=== PATIENT | female | born 1940 | race Caucasian/White ===

== ENCOUNTER 2017-06-29 12:06 | Outpatient (CLI) | payer OTHER ==
[2014-09-30 14:50] VITALS: BMI 23.0
[2017-06-29 13:06] LABS: BASOPHILS % (AUTO) 0.5 % (0.0-3.0); EOSINOPHILS # (AUTO) 0.4 K/ul (0.0-0.7); EOSINOPHILS % (AUTO) 4.8 % (0.0-7.0); HEMATOCRIT 30.2 % (37.0-47.0); HEMOGLOBIN 10.6 g/dl (12.0-16.0); IMMATURE GRANULOCYTE % (AUTO) 0.1 % (0.0-5.0); LYMPHOCYTES # (AUTO) 2.1 K/uL (0.60-3.4); MEAN CORPUSCULAR HEMOGLOBIN 31.5 pg (27.0-31.0); MEAN CORPUSCULAR HGB CONC 35.1 (31.8-35.4); MEAN CORPUSCULAR VOLUME 89.9 fl (81.0-99.0); MONOCYTES # (AUTO) 0.6 K/uL (0.4-2.0); MONOCYTES % (AUTO) 7.6 (0-10); NEUTROPHILS # (AUTO) 4.3 K/ul (2.0-6.9); PLATELET COUNT 307 10^3/uL (140-440); RED BLOOD COUNT 3.36 10^6/ul (4.20-5.40); WHITE BLOOD COUNT 7.34 K/ul (4.6-10.2)
[2017-06-29 13:43] LABS: ALBUMIN 3.5 g/dL (3.4-5.0); ALBUMIN/GLOBULIN RATIO 1.17; ANION GAP 11.6; BILIRUBIN,TOTAL 0.37 mg/dL (0.00-1.20); BUN/CREATININE RATIO 11.68; CALCIUM 9.3 mg/dL (8.2-10.2); CHOL/HDL RATIO 2.9 (4.5-5.5); CREATININE 0.77 mg/dL (0.60-1.30); POTASSIUM 3.6 mmol/L (3.5-5.10); TOTAL PROTEIN 6.5 g/dL (5.8-8.1)
== END 2017-06-29 12:07 | disposition home or self-care (01) ==
LOC: LAB 12:06
PROVIDERS: ATTEND Internal Medicine
DX: E78.5 Hyperlipidemia, unspecified (principal); I10 Essential (primary) hypertension; R73.9 Hyperglycemia, unspecified; I73.9 Peripheral vascular disease, unspecified; E53.8 Deficiency of other specified B group vitamins; J44.9 Chronic obstructive pulmonary disease, unspecified
CPT/HCPCS: 36415; 80053; 80061; 82607; 83036; 84443; 85025

== ENCOUNTER 2017-07-06 08:52 | Outpatient (CLI) ==
[2014-09-30 14:50] VITALS: BMI 23.0
--- NOTE | 2017-07-06 12:10 | MAMMO ---
EXAM: Digital screening mammogram with post Mrs. HISTORY: Screening COMPARISON: 03/30/2016 FINDINGS: Digital MLO and CC views of the right and left breast were performed. Computer aided det ection was utilized. Tomosynthesis was performed. There are scattered fibroglandular densities. Be nign bilateral calcifications. There is no evidence for mass, asymmetry, distortion, or suspicious c alcifications in either breast. IMPRESSION: 1. No evidence of malignancy in the right or left breast. 2. Annual screening mammogram is recommended in one year. BIRADS category 2, benign
== END 2017-07-06 08:53 | disposition home or self-care (01) ==
LOC: RAD 08:52
PROVIDERS: ATTEND Internal Medicine
DX: Z12.31 Encounter for screening mammogram for malignant neoplasm of breast (principal)
CPT/HCPCS: 77067

== ENCOUNTER 2017-07-08 11:01 | Outpatient (CLI) | payer OTHER ==
[2014-09-30 14:50] VITALS: BMI 23.0
[2017-07-08 11:35] LABS: BASOPHILS % (AUTO) 0.5 % (0.0-3.0); EOSINOPHILS # (AUTO) 0.3 K/ul (0.0-0.7); EOSINOPHILS % (AUTO) 3.7 % (0.0-7.0); HEMATOCRIT 29.9 % (37.0-47.0); HEMOGLOBIN 10.3 g/dl (12.0-16.0); IMMATURE GRANULOCYTE % (AUTO) 0.3 % (0.0-5.0); LYMPHOCYTES # (AUTO) 2.5 K/uL (0.60-3.4); LYMPHOCYTES % (AUTO) 32.2 (10.0-50.0); MEAN CORPUSCULAR HEMOGLOBIN 30.8 pg (27.0-31.0); MEAN CORPUSCULAR HGB CONC 34.4 (31.8-35.4); MEAN CORPUSCULAR VOLUME 89.5 fl (81.0-99.0); MONOCYTES # (AUTO) 0.6 K/uL (0.4-2.0); MONOCYTES % (AUTO) 7.8 (0-10); NEUTROPHILS # (AUTO) 4.3 K/ul (2.0-6.9); NEUTROPHILS % (AUTO) 55.5; PLATELET COUNT 283 10^3/uL (140-440); RED BLOOD COUNT 3.34 10^6/ul (4.20-5.40); WHITE BLOOD COUNT 7.67 K/ul (4.6-10.2)
== END 2017-07-08 11:02 | disposition home or self-care (01) ==
LOC: LAB 11:01
PROVIDERS: ATTEND Internal Medicine
DX: D64.9 Anemia, unspecified (principal)
CPT/HCPCS: 36415; 85025

== ENCOUNTER 2017-10-25 10:58 | Outpatient (CLI) ==
[2014-09-30 14:50] VITALS: BMI 23.0
== END 2017-10-25 10:59 | disposition home or self-care (01) ==
LOC: LAB 10:58
PROVIDERS: ATTEND Internal Medicine
DX: E78.5 Hyperlipidemia, unspecified (principal); D64.9 Anemia, unspecified; I10 Essential (primary) hypertension; Z79.899 Other long term (current) drug therapy
CPT/HCPCS: 36415; 80053; 80061; 82607; 82728; 82746; 83036; 83540; 83550; 84443; 84466; 85025; 85045

== ENCOUNTER 2018-06-16 19:04 | Inpatient (IN) | payer OTHER ==
[2018-06-16] MEDS ORDERED: SODIUM CHLORIDE 1,000 ML IV STA (19:06)
--- NOTE | 2018-06-16 20:46 | CT ---
EXAM: CT ABDOMEN AND PELVIS HISTORY: Lower quadrant abdominal pain, vomiting and diarrhea TECHNIQUE: CT abdomen and pelvis without intravenous contrast. Images were reconstructed using 3 mm section thickness. Reformations were prepared. COMPARISON: 09/23/2010 FINDINGS: Diagnostic limitations exist without including contrast enhanced images. Liver and spleen appear cordell ssly normal. Gallbladder is mildly distended, nonspecific. Pancreas and adrenal glands are within n ormal limits. Kidneys and ureters appear grossly normal. Moderate atherosclerotic disease. Tiny sliding hiatal hernia. The appendix is identified and is within normal limits. Diffuse wall th ickening of the colon with subtle paracolic inflammatory fat stranding. Small bowel grossly within n ormal limits. No bowel obstruction. Uterus is unremarkable. Urinary bladder is decompressed, grossly unremarkable. Scant pelvic ascites. No well-defined abscess is seen. No ventral abdominal wall hernia. Previous postop changes of the midline abdominal wall. The bones reveal severe degenerative disc and facet disease especially at the lumbosacral junction where there is anterior listhesis of L4 on L5 by about 4.4 mm and of L5 on S1 by about 3 mm. Bones appear demine ralized. Lung bases are free of acute infiltrate. No pneumoperitoneum. IMPRESSION: 1. Acute active finney colitis without obstruction or abscess. No free air. 2. Moderate atherosclerotic disease. 3. Tiny sliding hiatal hernia.
--- NOTE | 2018-06-16 20:54 | ED.PDOC ---
General ED Provider: Dr. YASMINE ALEXIS-ER Chief Complaint: Abdominal Pain Stated Complaint: im cramping and having lots of stools Time Seen by Physician: 19:40 Mode of Arrival: Ambulance Information Source: Patient, EMT Exam Limitations: No limitations Primary Care Provider: NAPOLEON CAI Nursing and Triage Documentation Reviewed and Agree: Yes Does patient meet sepsis criteria?: No System Inflammatory Response Syndrome: Not Applicable Sepsis Protocol: For patient's 13 years and over: Temp is 96.8 and below OR 101 and greater Pulse >90 BPM Resp >20/minute Acutely Altered Mental Status Are patient's symptoms suggestive of a new infection, such as: -Pneumonia -Skin, Soft Tissue -Endocarditis -UTI -Bone, Joint Infection -Implantable Device -Acute Abdominal Infection -Wound Infection -Meningitis -Blood Stream Catheter Infection -Unknown GI Complaint Exam - Vomiting/Diarrhea Complaint/Exam Onset/Duration: today Symptoms Are: Still present Episodes of Diarrhea Over Last 24 Hours: 9 Initial Severity: Mild Current Severity: Moderate Character of Diarrhea: Reports: Watery, Malodorous Aggravating: Reports: None Alleviating: Reports: None Associated Signs and Symptoms: Reports: Abdominal pain, Cramping Kussmaul Respirations Present: No Differential Diagnoses: Other Review of Systems - Review Of Systems Constitutional: Reports: No symptoms Eyes: Reports: No symptoms Ears, Nose, Mouth, Throat: Reports: No symptoms Respiratory: Reports: No symptoms Cardiac: Reports: No symptoms GI: Reports: Diarrhea, Nausea : Reports: No symptoms Musculoskeletal: Reports: No symptoms Skin: Reports: No symptoms Neurological: Reports: No symptoms Endocrine: Reports: No symptoms Hematologic/Lymphatic: Reports: No symptoms All Other Systems: Reviewed and Negative Past Medical History - Past Medical History Previously Healthy: No Endocrine: Reports: Unknown Cardiovascular: Reports: Unknown Respiratory: Reports: Other Hematological: Reports: Unknown Gastrointestinal: Reports: Other Genitourinary: Reports: Unknown Neuro/Psych: Reports: Unknown Musculoskeletal: Reports: Unknown Cancer: Reports: Unknown Last Menstrual Period: none - Surgical History General Surgical History: Reports: Unknown - Family History Family History: Reports: Unknown - Social History Smoking Status: Former smoker Hx Substance Use: No Alcohol Screening: None - Immunizations Tetanus Shot up to Date: Yes Physical Exam - Physical Exam Appearance: Well-appearing, No pain distress, Well-nourished Eyes: DENTON, EOMI, Conjunctiva clear ENT: Ears normal, Nose normal, Oropharynx normal Respiratory: Airway patent, Breath sounds clear, Breath sounds equal, Respirations nonlabored Cardiovascular: RRR, Pulses normal, No rub, No murmur GI/: Soft, Nontender, No masses, Bowel sounds normal, No Organomegaly Musculoskeletal: Normal strength, ROM intact, No edema, No calf tenderness Skin: Warm, Dry, Normal color Neurological: Sensation intact, Motor intact, Reflexes intact, Cranial nerves intact, Alert, Oriented Psychiatric: Affect appropriate, Mood appropriate Interpretation - Radiology Interpretation Radiology Interpretation By: Radiologist Radiology Results: Positive Exam Interpreted: CT Scan - EKG Interpretation Time of EKG #1: 20:54 Rate: Normal Rhythm: Sinus Ectopy: None [place]: NL ST Segment: Normal Interpretation: nsr Physician Notification - Case Discussed Physician Notified: dr cai Time of Notification: 20:54 Critical Care Note - Critical Care Note Total Time (mins): 0 Course - Course Hematology/Chemistry: 06/16/18 19:43 06/16/18 19:43 Orders, Labs, Meds: Lab Review 06/16/18 06/16/18 06/16/18 19:43 19:43 19:43 WBC 23.21 H RBC 4.20 Hgb 12.9 Hct 37.5 MCV 89.3 MCH 30.7 MCHC 34.4 RDW Coeff of Hemant 12.8 Plt Count 347 Immature Gran % (Auto) 0.5 Neut % (Auto) 81.0 Lymph % (Auto) 12.7 [place] % (Auto) 3.8 Eos % (Auto) 1.5 Baso % (Auto) 0.5 Immature Gran # (Auto) 0.1 Neut # (Auto) 18.8 H Lymph # (Auto) 3.0 [place] # (Auto) 0.9 Eos # (Auto) 0.3 Baso # (Auto) 0.1 ESR 7 Sodium 135.0 L Potassium 3.34 L Chloride 105.4 Carbon Dioxide 18.2 L Anion Gap 14.74 BUN 13.5 Creatinine 0.94 Estimated GFR (MDRD) 58.00 BUN/Creatinine Ratio 14.36 Glucose 183.8 H Lactic Acid 2.08 Calcium 9.09 Total Bilirubin 0.54 AST 27.9 ALT 15.7 Alkaline Phosphatase 107.2 Total Creatine Kinase 71.9 Troponin I < 0.012 Total Protein 6.56 Albumin 3.83 Globulin 2.73 Albumin/Globulin Ratio 1.40 Amylase 214.8 H Lipase 90.8 Procalcitonin 06/16/18 19:43 WBC RBC Hgb Hct MCV MCH MCHC RDW Coeff of Hemant Plt Count Immature Gran % (Auto) Neut % (Auto) Lymph % (Auto) [place] % (Auto) Eos % (Auto) Baso % (Auto) Immature Gran # (Auto) Neut # (Auto) Lymph # (Auto) [place] # (Auto) Eos # (Auto) Baso # (Auto) ESR Sodium Potassium Chloride Carbon Dioxide Anion Gap BUN Creatinine Estimated GFR (MDRD) BUN/Creatinine Ratio Glucose Lactic Acid Calcium Total Bilirubin AST ALT Alkaline Phosphatase Total Creatine Kinase Troponin I Total Protein Albumin Globulin Albumin/Globulin Ratio Amylase Lipase Procalcitonin 0.13 Orders Category Date Time Status EKG-(ED ONLY) Stat CARDIO 06/16/18 19:05 Completed C-DIFF MONITORING (NURSING) BID CARE 06/16/18 19:09 Active C-DIFF MONITORING (NURSING) BID CARE 06/16/18 19:11 Active IV [ED IV/MEDIPORT/POWERPORT] .ONCE EMERGENCY 06/16/18 19:06 Active IV [ED IV/MEDIPORT/POWERPORT] .ONCE EMERGENCY 06/16/18 19:06 Active AMYLASE Stat LAB 06/16/18 19:43 Completed BLOOD CULTURE (ED ONLY) Stat LAB 06/16/18 19:43 Received C. DIFFICILE Routine LAB 06/16/18 19:20 Received CBC W/ AUTO DIFF Stat LAB 06/16/18 19:43 Completed COMPREHENSIVE METABOLIC PANEL Stat LAB 06/16/18 19:43 Completed CREATINE KINASE Stat LAB 06/16/18 19:43 Completed ESR Stat LAB 06/16/18 19:43 Completed LACTIC ACID Stat LAB 06/16/18 19:43 Completed LIPASE Stat LAB 06/16/18 19:43 Completed MISCELLANEOUS SEND OUT Stat LAB 06/16/18 19:20 Received PROCALCITONIN Stat LAB 06/16/18 19:43 Completed STOOL CULTURE Stat LAB 06/16/18 19:20 Results TROPONIN I Stat LAB 06/16/18 19:43 Completed URINALYSIS C & S IF INDICATED Stat LAB 06/16/18 19:05 Uncollected 0.9 % Sodium Chloride [Saline Flush] MEDS 06/16/18 19:06 Ordered 1 syr IVF PRN PRN Sodium Chloride 0.9% [Sodium Chloride] 1,000 ml MEDS 06/16/18 19:[address] ABDOMEN/PELVIS WO CONTRAST Stat RADS 06/16/18 19:07 Completed Medications Generic Name Dose Route Start Last Admin Trade Name Freq PRN Reason Stop Dose Admin Sodium Chloride 1 syr 06/16/18 19:06 Saline Flush IVF PRN PRN To flush IV Discontinued Medications Generic Name Dose Route Start Last Admin Trade Name Freq PRN Reason Stop Dose Admin Sodium Chloride 1,000 mls @ 1,000 mls/hr 06/16/18 19:06 06/16/18 19:35 Sodium Chloride IV 06/16/18 20:05 1,000 mls/hr BOLUS STA Administration Vital Signs: Temp Pulse Resp BP Pulse Ox 06/16/18 19:35 97.8 F 79 18 90/50 L 100 Departure - Departure Time of Disposition: 20:54 Disposition: HOME SELF-CARE Discharge Problem: Abdominal pain, Colitis Condition: Stable Pt referred to PMD for follow-up: Yes IPMP verified?: No Allergies/Adverse Reactions: Allergies cephalexin monohydrate [From Keflex] Adverse Reaction (Verified 09/18/14 12:25) latex Adverse Reaction (Verified 09/18/14 12:25) meperidine HCl [From Demerol] Adverse Reaction (Verified 09/18/14 12:25) Sulfa (Sulfonamide Antibiotics) Adverse Reaction (Verified 09/18/14 12:25) Home Medications: Ambulatory Orders Aspirin [Aspirin Chewable] 81 mg PO DAILY 09/18/14 Bisoprolol Fumarate [Zebeta] 5 mg PO DAILY 09/18/14 Esomeprazole Magnesium [Nexium] 40 mg PO DAILY 09/18/14 Pravastatin Sodium [Pravachol] 40 mg PO DAILY 09/18/14 Cyclobenzaprine HCl [Flexeril] 10 mg PO DAILY #1 tablet 10/05/14 Hydrocodone/Acetaminophen [[place] 7.5-325 Tablet] 1 each PO TID PRN #1 tablet 07/10 Lorazepam [Ativan] 0.5 mg PO BEDTIME #1 tablet 10/05/14 Budesonide/Formoterol Fumarate [Symbicort 160-4.5 Mcg Inhaler] 1 puff IH BID 03/10 Amlodipine Besylate/Benazepril [Lotrel 5-40 mg Capsule] 1 each PO DAILY Bisoprolol Fumarate [Zebeta] 5 mg PO DAILY 06/16/18 Disposition Discussed With: Patient, Family
[2018-06-16] MEDS ORDERED: NORCO 7.5-325 PO PRN (20:59)
[2018-06-16] MEDS ORDERED: FLAGYL 500 MG/100 ML 500 MG in PREMIX 100 ML NS 1 BAG IV SCH (21:00)
[2018-06-16] MEDS ORDERED: SYMBICORT 160-4.5 MCG INHALER IH SCH (21:00)
[2018-06-16] MEDS ORDERED: SYMBICORT 160-4.5 MCG INHALER IH PRN (22:14)
[2018-06-16] MEDS ORDERED: FLAGYL 500 MG/100 ML 100 ML IV ONE (22:17)
[2018-06-16] MEDS: D5%-NS-KCL 20 MEQ/L IV SOL 1,000 ML IV SCH (22:20)
[2018-06-16] MEDS: VANCOCIN PO SCH ×2 (22:21→23:32)
[2018-06-16] MEDS: FLEXERIL PO SCH (22:21)
[2018-06-16] MEDS: ATIVAN PO SCH (22:21)
[2018-06-17] MEDS: VANCOCIN PO SCH ×4 (05:22→23:39)
[2018-06-17] MEDS: NORCO 7.5-325 PO PRN ×2 (06:42→11:08)
[2018-06-17] MEDS: PROTONIX PO SCH (08:26)
[2018-06-17] MEDS: FLAGYL 500 MG/100 ML 500 MG in PREMIX 100 ML NS 1 BAG IV SCH ×3 (08:26→21:12)
[2018-06-17] MEDS ORDERED: NON-FORMULARY MEDICATION (Esomeprazole Magnesium [Nexium] 40 MG) PO SCH (09:00)
[2018-06-17] MEDS ORDERED: FLEXERIL PO SCH (09:00)
[2018-06-17] MEDS: D5%-NS-KCL 20 MEQ/L IV SOL 1,000 ML IV SCH ×2 (09:38→13:28)
[2018-06-17] MEDS ORDERED: [UNRECOGNIZED DRUG - REMARK] INH PRN (11:57)
[2018-06-17] MEDS ORDERED: FLONASE NAS ONE (12:14)
[2018-06-17] MEDS: ZOFRAN 4 MG/2 ML IVP PRN ×2 (12:57→21:13)
[2018-06-17] MEDS: DECADRON 4 MG/ML SDV IM SCH (13:25)
[2018-06-17] MEDS: TYLENOL PO PRN (15:19)
[2018-06-17] MEDS: NORCO 7.5-325 PO SCH ×2 (16:36→21:14)
[2018-06-17] MEDS: FLEXERIL PO SCH (21:15)
[2018-06-17] MEDS: ATIVAN PO SCH (21:15)
[2018-06-18] MEDS: D5%-NS-KCL 20 MEQ/L IV SOL 1,000 ML IV SCH ×3 (01:41→16:06)
[2018-06-18] MEDS: ZOFRAN 4 MG/2 ML IVP PRN ×2 (04:17→15:02)
[2018-06-18] MEDS: FLAGYL 500 MG/100 ML 500 MG in PREMIX 100 ML NS 1 BAG IV SCH ×3 (04:18→21:06)
[2018-06-18] MEDS: VANCOCIN PO SCH ×4 (05:46→23:54)
[2018-06-18] MEDS: PROTONIX PO SCH (05:46)
[2018-06-18] MEDS ORDERED: FLONASE NAS PRN (07:12)
[2018-06-18] MEDS: DECADRON 4 MG/ML SDV IM SCH (08:12)
[2018-06-18] MEDS: NORCO 7.5-325 PO SCH ×4 (08:12→21:06)
--- NOTE | 2018-06-18 12:59 | HP ---
DATE OF SERVICE: 06/16/18 REASON FOR HOSPITALIZATION: Bloody diarrhea with abdominal cramping. HISTORY OF PRESENT ILLNESS: 78-year-old white female who started having bloody diarrhea. At the time when she entered the ambulance, prior to that at least two to three hours she was having abdominal cramping and that is why the ambulance was called. The ER physician called me with the patient's history of having bloody diarrhea with cramping. CT scan of the abdomen showed pancolitis. According to the emergency room physician, the patient's stools were really foul-smelling and to him they smelled like C. diff. The patient doesn't give any history of having any contact with anyone with C. diff or eaten anything that could have started it. The onset was sudden, a few hours prior to coming to the emergency room. There were no fever, no chills. She felt extremely weak and tired. PAST MEDICAL/SURGICAL HISTORY: History of hypertension Dyslipidemia Severe DJD of the spine Anxiety disorder Chronic lung disease Hypertension REVIEW OF SYSTEMS: CONSTITUTIONAL: Fatigue and weakness. No night sweats. No malaise, lethargy. No fever or chills. HEENT: Eyes: No visual changes. No eye pain. No eye discharge. ENT: No runny nose. No epistaxis. No sinus pain. No sore throat. No odynophagia. No ear pain. No congestion. RESPIRATORY: No cough, no congestion. No hemoptysis. No shortness of breath. CARDIOVASCULAR: No angina symptoms. No CHF symptoms. No atypical chest pain for CAD. No palpitations. No PND. No orthopnea. GASTROINTESTINAL: Abdominal cramping a few hours prior to coming to the emergency room. The patient started having diarrhea in the ambulance. Having more bloody diarrhea in ER. No nausea or vomiting. No hematemesis. No hematochezia. GENITOURINARY: No urgency. No frequency. No dysuria. No hematuria. No obstructive symptoms. No discharge. No pain. No significant abnormal bleeding. MUSCULOSKELETAL: No musculoskeletal pain. No joint swelling. No arthritis. NEUROLOGICAL: No headache. No neck pain. No syncope. No seizures. No dizziness. PSYCHIATRIC: Not anxious. No depression. No suicidal thoughts. No homicidal thoughts. SKIN: No rash. No lesions. No wounds. ENDOCRINE: No unexplained weight loss. No weight gain. HEMATOLOGIC/LYMPHATIC: No anemia. No purpura. No petechiae. No prolonged or excessive bleeding. No palpable lymph nodes. PERSONAL/FAMILY/SOCIAL HISTORY: The patient is , lives with the . Nonsmoker. No alcohol abuse. She does all activity of daily living. She is oriented to time, place and person. MEDICATIONS: Aspirin Bisoprolol 5 mg daily Nexium 40 daily Pravastatin 40 daily Flexeril 10 mg p.o. daily Hydrocodone 7.5 mg t.i.d. Lorazepam 0.5 mg at bedtime Symbicort 164.5 daily Lotrel 5-40 mg daily Zebeta 5 mg p.o. daily ALLERGIES: CEPHALEXIN, LATEX, MEPERIDINE, SULFA PHYSICAL EXAMINATION: GENERAL: The patient is oriented to time, place and person. VITAL SIGNS: Temperature 99.2, pulse 80, respiratory rate 16, BP 130/70, pulse ox 98% on room air. HEENT: Mucous membranes dry. Head normocephalic, atraumatic. Eyes: Extraocular muscles are intact. Pupils are equal, round and reactive to light and accommodation. Ears: No lesions. Nose appeared normal. Throat: No exudate or erythema. NECK: Supple. No JVD, no carotid bruit. No lymphadenopathy or thyromegaly. LUNGS: Decreased breath sounds but clear to auscultation. Percussion note normal. Chest symmetrical. HEART: S1, S2, no S3. No murmurs. No cyanosis or clubbing. No ascites. Pulses: Dorsalis pedis and posterior tibial pulses +1 bilaterally. ABDOMEN: Mildly distended. Mildly tender upper quadrants. Bowel sounds hyperactive. No CVA tenderness. No mass felt. EXTREMITIES: No pedal edema. Full range of motion of all extremities, equal. DATA WAREHOUSE ARCHITECT: Mental status - reflexes normal. NEUROLOGIC: No focal deficit. Cranial nerves II through XII are grossly intact. No headache, no double vision or headache. SKIN: Dry. Intact. Turgor - normal. LYMPHATIC: No palpable lymph nodes/no lymphedema. MUSCULOSKELETAL: Normal joints with no swelling. Muscle tone is normal. WBC count 22,000, electrolytes normal. CT scan of the abdomen showed pancolitis. ASSESSMENT: 1. ACUTE ONSET OF BLOODY DIARRHEA WITH ABDOMINAL CRAMPLING LIKELY COLITIS WITH FOUL SMELLING STOOL WITH HIGH WBC COUNT LIKELY POSSIBILITY C. DIFF. 2. HYPERTENSION 3. DYSLIPIDEMIA 4. GENERALIZED DJD 5. HYPOKALEMIA PLAN: 1. Will give Flagyl, Zofran, Vancomycin p.o., IV fluids. 2. Watch for fluid overload. 3. Telemetry. 4. Stool for C. diff. 5. Continue the rest of the medications. CONDITION: Stable. TIME SPENT: More than 70 minutes. MTDD
[2018-06-18] MEDS: ENTOCORT EC PO SCH ×2 (15:02→21:06)
[2018-06-18] MEDS: ATIVAN PO SCH (21:06)
[2018-06-18] MEDS: FLEXERIL PO SCH (21:06)
[2018-06-19] MEDS: FLAGYL 500 MG/100 ML 500 MG in PREMIX 100 ML NS 1 BAG IV SCH ×3 (04:20→20:09)
[2018-06-19] MEDS: VANCOCIN PO SCH ×3 (05:35→17:20)
[2018-06-19] MEDS: PROTONIX PO SCH (05:35)
[2018-06-19] MEDS: D5%-NS-KCL 20 MEQ/L IV SOL 1,000 ML IV SCH (06:28)
--- NOTE | 2018-06-19 06:50 | PN ---
DATE OF SERVICE: 06/17/18 SUBJECTIVE: The patient is doing a little better. She says she has less cramping, less abdominal pain, bloody diarrhea still present with cramping but in between there is no oozing. She feels better. She feels like eating ice cream, sherbert. She is oriented to time, place and person. REVIEW OF SYSTEMS: CONSTITUTIONAL: No night sweats. No fatigue, malaise, lethargy. No fever or chills. HEENT: Eyes: No visual changes. No eye pain. No eye discharge. ENT: No runny nose. No epistaxis. No sinus pain. No sore throat. No odynophagia. No congestion. RESPIRATORY: No cough, no congestion. No hemoptysis. No shortness of breath. CARDIOVASCULAR: No angina symptoms. No CHF symptoms. No atypical chest pain for CAD. No palpitations. No orthopnea. GASTROINTESTINAL: Abdominal cramping with bloody diarrhea, less frequent with less intensity. No nausea or vomiting. No constipation. No hematemesis. No hematochezia. GENITOURINARY: No urgency. No frequency. No dysuria. No hematuria. No obstructive symptoms. No discharge. No pain. No significant abnormal bleeding. MUSCULOSKELETAL: No musculoskeletal pain; no joint swelling. NEUROLOGICAL: No headache. No neck pain. No syncope. No seizures. No dizziness. PSYCHIATRIC: Not anxious. No depression. No suicidal thoughts. No homicidal thoughts. SKIN: No rash. No lesions. No wounds. ENDOCRINE: No unexplained weight loss. No weight gain. HEMATOLOGIC/LYMPHATIC: No anemia. No purpura. No petechiae. No prolonged or excessive bleeding. No palpable lymph nodes. PHYSICAL EXAMINATION: GENERAL: The patient is oriented to time, place and person. VITAL SIGNS: Temperature 98.2, pulse 70, respiratory rate 15, BP 130/80. HEENT: Head normocephalic, atraumatic. Eyes: Extraocular muscles are intact. Pupils are equal, round and reactive to light and accommodation. Ears: No lesions. Nose appeared normal. Throat: No exudate or erythema. NECK: Supple. No JVD, no carotid bruit. No lymphadenopathy or thyromegaly. LUNGS: Decreased breath sounds but clear to auscultation. Percussion note normal. Chest symmetrical. HEART: S1, S2, no S3. No murmurs. No cyanosis or clubbing. No ascites. Pulses: Dorsalis pedis and posterior tibial pulses +1 to +2 both sides. ABDOMEN: Soft. Nontender. Bowel sounds active. No CVA tenderness. No mass felt. EXTREMITIES: No edema. Full range of motion of all extremities, equal. NEUROLOGIC: No focal deficit. Cranial nerves II through XII are grossly intact. No headache, no double vision or headache. SKIN: Not dry. Intact. Turgor - normal. LYMPHATIC: No palpable lymph nodes/no lymphedema. MUSCULOSKELETAL: Normal joints with no swelling. Muscle tone is normal. ASSESSMENT: 1. ACUTE BLOODY DIARRHEA WITH FOUL SMELLING STOOL AND LEUKOCYTOSIS LIKELY C. DIFF; EVEN THOUGH C. DIFF IS NEGATIVE. 2. HYPERTENSION 3. DYSLIPIDEMIA 4. HYPOKALEMIA PLAN: 1. Continue IV fluids - increase to 75 cc/hr 2. Continue Vancomycin p.o. and IV Flagyl CONDITION: Stable TIME SPENT: More than 30 minutes. Plan and coordination of the patient's care discussed in the presence of nurse. EDGARDO
[2018-06-19] MEDS ORDERED: DECADRON 4 MG/ML SDV IVP SCH (09:00)
[2018-06-19] MEDS: NORCO 7.5-325 PO SCH ×4 (09:05→20:09)
[2018-06-19] MEDS: ENTOCORT EC PO SCH ×3 (09:05→21:21)
--- NOTE | 2018-06-19 09:40 | PCM.PROG ---
Attending Provider: ATTENDING PROVIDER: Dr. NAPOLEON CRUZ This patient is seen with Bethanie Heller, Nurse Practitioner. DATE OF SERVICE: 06/19/18 SUBJECTIVE: This 78 year old WHITE/ F was hospitalized 06/16/18. The patient is resting comfortably. No stools through the night. Stools have been slowing down significantly. She ate a small amount yesterday. She is weak, coughing some. Urine culture pending. REVIEW OF SYSTEMS: CONSTITUTIONAL: Weakness. No night sweats. No malaise, lethargy. No fever or chills. HEENT: Eyes: No visual changes. No eye pain. No eye discharge. ENT: No runny nose. No epistaxis. No sinus pain. No odynophagia. No congestion. RESPIRATORY: Cough with wheeze. No hemoptysis. No shortness of breath. CARDIOVASCULAR: No angina symptoms. No CHF symptoms. No atypical chest pain for CAD. No palpitations. No orthopnea.. GASTROINTESTINAL: Diarrhea. No abdominal pain. No nausea or vomiting. No constipation. No hematemesis. No hematochezia. GENITOURINARY: No urgency. No frequency. No dysuria. No hematuria. No obstructive symptoms. No discharge. No pain. No significant abnormal bleeding. MUSCULOSKELETAL: No musculoskeletal pain; no joint swelling. NEUROLOGICAL: Awake, alert, oriented to time, place and person. No headache. No neck pain. No syncope. No seizures. No dizziness. PSYCHIATRIC: Not anxious. No depression. No suicidal thoughts. No homicidal thoughts. SKIN: No rash. No lesions. No wounds. ENDOCRINE: No unexplained weight loss. No weight gain. HEMATOLOGIC/LYMPHATIC: No anemia. No purpura. No petechiae. No prolonged or excessive bleeding. No palpable lymph nodes. PHYSICAL EXAMINATION: GENERAL: The patient is awake, alert and oriented, sitting in chair in no distress. VITAL SIGNS: Temperature 97.7 F, Pulse 87, Respiratory Rate 22, BP 136/60, Pulse Ox 96% HEENT: Head normocephalic, atraumatic. Eyes: Extraocular muscles are intact. Pupils are equal, round and reactive to light and accommodation. Ears: No lesions. Nose appeared normal. Throat: No exudate or erythema. NECK: Supple. No JVD, no carotid bruit. No lymphadenopathy or thyromegaly. LUNGS: Diminished breath sounds with expiratory wheeze. Percussion note normal. Chest symmetrical. HEART: S1, S2, no S3. No murmurs. No cyanosis or clubbing. No ascites. Pulses: Dorsalis pedis and posterior tibial pulses +1 to +2 both sides. ABDOMEN: No abdominal tenderness. Soft. Bowel sounds active. No CVA tenderness. No mass felt. EXTREMITIES: No edema. Full range of motion of all extremities, equal. NEUROLOGIC: No focal deficit. Cranial nerves II through XII are grossly intact. No headache, no double vision or headache. SKIN: Not dry. Intact. Turgor-normal. LYMPHATIC: No palpable lymph nodes/no lymphedema. MUSCULOSKELETAL: Normal joints with no swelling. Muscle tone is normal. LAB REVIEW: 06/19/18 04:43 06/19/18 04:43 06/19/18 04:43: Sodium 135.5 L, Potassium 4.31, Chloride 110.3 H, Carbon Dioxide 23.3, Anion Gap 6.21, BUN 8.2, Creatinine 0.67, Estimated GFR (MDRD) 85.00, BUN/Creatinine Ratio 12.23, Glucose 113.3 H, Calcium 8.58, Total Bilirubin 0.15 L, AST 15.3, ALT 10.4, Alkaline Phosphatase 49.1 L, Total Protein 5.05 L, Albumin 2.64 L, Globulin 2.41, Albumin/Globulin Ratio 1.09 06/19/18 04:43: WBC 10.65 H, RBC 2.77 L, Hgb 8.7 L, Hct 25.1 L, MCV 90.6, MCH 31.4 H, MCHC 34.7, RDW Coeff of Hemant 13.1, Plt Count 182, Neutrophils % (Manual) 83.0 H, Lymphocytes % (Manual) 11.0, Monocytes % (Manual) 6.0, Anisocytosis Not present 06/16/18 19:20: Miscellaneous Test ASSESSMENT: 1. Acute finney colitis 2. Urinary tract infection 3. Anemia 4. Acute bronchitis 5. Chronic pain PLAN: 1. Change [place] TATIANA to q.4 hours 2. Chest x-ray 3. Flexeril 10 mg at night Plan and coordination of the patient's care discussed in the presence of Metal Weigher and nurse. CONDITION: Stable SCRIBED BY: BRITTON MCCARTHY Store Clerk Cashier scribed while in presence of service performed by Dr. Cruz/Bethanie Heller APRN on 06/19/18 ([id number])
--- NOTE | 2018-06-19 14:33 | DI ---
EXAM: Single view of the chest. History: Cough and wheezing Comparison: Chest radiograph 12/23/2014 Findings: Heart size is normal. No focal consolidation. Possible small left pleural effusion. No definite acute infiltrates. No pneumothorax. Atherosclerotic vascular calcifications. No acute oss eous abnormalities. Impression: Possible small left pleural effusion. Recommend followup with PA and lateral chest radi ograph.
[2018-06-19] MEDS ORDERED: LOPRESSOR IVP STA (15:06)
[2018-06-19] MEDS: ZEBETA PO SCH (15:12)
[2018-06-19] MEDS: MACRODANTIN PO SCH (21:21)
[2018-06-19] MEDS: FLEXERIL PO SCH (21:22)
[2018-06-19] MEDS: ATIVAN PO SCH (21:22)
[2018-06-20] MEDS: VANCOCIN PO SCH ×5 (00:29→23:19)
[2018-06-20] MEDS: FLAGYL 500 MG/100 ML 500 MG in PREMIX 100 ML NS 1 BAG IV SCH ×3 (05:03→21:10)
[2018-06-20] MEDS: TYLENOL PO PRN (05:04)
[2018-06-20] MEDS: NORCO 7.5-325 PO SCH ×4 (08:00→20:17)
--- NOTE | 2018-06-20 10:56 | PCM.PROG ---
Attending Provider: ATTENDING PROVIDER: Dr. NAPOLEON CRUZ This patient is seen with Bethanie Heller, Nurse Practitioner. DATE OF SERVICE: 06/20/18 SUBJECTIVE: This 78 year old WHITE/ F was hospitalized 06/16/18. The patient is sitting in chair, resting comfortably. No stool since yesterday afternoon. She is able to eat, has been getting up by herself. She is scheduled for a repeat CT of the abdomen with contrast today. She started Macrobid orally last night for UTI. REVIEW OF SYSTEMS: CONSTITUTIONAL: Weakness. No night sweats. No malaise, lethargy. No fever or chills. HEENT: Eyes: No visual changes. No eye pain. No eye discharge. ENT: No runny nose. No epistaxis. No sinus pain. No odynophagia. No congestion. RESPIRATORY: No cough, no congestion. No hemoptysis. No shortness of breath. CARDIOVASCULAR: No angina symptoms. No CHF symptoms. No atypical chest pain for CAD. No palpitations. No orthopnea.. GASTROINTESTINAL: No abdominal pain. No nausea or vomiting. No diarrhea or constipation. No hematemesis. No hematochezia. GENITOURINARY: No urgency. No frequency. No dysuria. No hematuria. No obstructive symptoms. No discharge. No pain. No significant abnormal bleeding. MUSCULOSKELETAL: No musculoskeletal pain; no joint swelling. NEUROLOGICAL: Awake, alert, oriented to time, place and person. No headache. No neck pain. No syncope. No seizures. No dizziness. PSYCHIATRIC: Not anxious. No depression. No suicidal thoughts. No homicidal thoughts. SKIN: No rash. No lesions. No wounds. ENDOCRINE: No unexplained weight loss. No weight gain. HEMATOLOGIC/LYMPHATIC: No anemia. No purpura. No petechiae. No prolonged or excessive bleeding. No palpable lymph nodes. PHYSICAL EXAMINATION: GENERAL: The patient is awake, alert and oriented, sitting in chair in no distress. VITAL SIGNS: Temperature 98.2 F, Pulse 68, Respiratory Rate 20, BP 133/63, Pulse Ox 98% HEENT: Head normocephalic, atraumatic. Eyes: Extraocular muscles are intact. Pupils are equal, round and reactive to light and accommodation. Ears: No lesions. Nose appeared normal. Throat: No exudate or erythema. NECK: Supple. No JVD, no carotid bruit. No lymphadenopathy or thyromegaly. LUNGS: Diminished breath sounds. Clear to auscultation. Percussion note normal. Chest symmetrical. HEART: S1, S2, no S3. No murmurs. No cyanosis or clubbing. No ascites. Pulses: Dorsalis pedis and posterior tibial pulses +1 to +2 both sides. ABDOMEN: Soft. Non-tender. Bowel sounds active. No CVA tenderness. No mass felt. EXTREMITIES: No edema. Full range of motion of all extremities, equal. NEUROLOGIC: No focal deficit. Cranial nerves II through XII are grossly intact. No headache, no double vision or headache. SKIN: Not dry. Intact. Turgor-normal. LYMPHATIC: No palpable lymph nodes/no lymphedema. MUSCULOSKELETAL: Normal joints with no swelling. Muscle tone is normal. LAB REVIEW: 06/20/18 06:35 06/20/18 06:35 06/20/18 06:35: Sodium 135.4 L, Potassium 3.44 L, Chloride 103.2, Carbon Dioxide 25.3, Anion Gap 10.34, BUN 13.3, Creatinine 0.72, Estimated GFR (MDRD) 79.00, BUN/Creatinine Ratio 18.47, Glucose 95.6, Calcium 8.97, Total Bilirubin 0.30, AST 25.7, ALT 15.6, Alkaline Phosphatase 67.9, Total Protein 6.22 L, Albumin 3.42 L, Globulin 2.80, Albumin/Globulin Ratio 1.22 06/20/18 06:35: WBC 15.73 H D, RBC 3.21 L, Hgb 9.9 L, Hct 29.2 L, MCV 91.0, MCH 30.8, MCHC 33.9, RDW Coeff of Hemant 13.2, Plt Count 282 D, Immature Gran % (Auto ) 2.2, Neut % (Auto) 77.4, Lymph % (Auto) 13.1, [place] % (Auto) 6.9, Eos % (Auto) 0.1, Baso % (Auto) 0.3, Immature Gran # (Auto) 0.3, Neut # (Auto) 12.2 H, Lymph # (Auto) 2.1, [place] # (Auto) 1.1, Eos # (Auto) 0.0, Baso # (Auto) 0.1 ASSESSMENT: 1. Acute finney colitis 2. Urinary tract infection 3. Anemia 4. Acute bronchitis 5. Chronic pain PLAN: 1. Repeat CT of abdomen with contrast Plan and coordination of the patient's care discussed in the presence of Integrity Manager and nurse. CONDITION: Stable SCRIBED BY: Josh FRITZ scribed while in presence of service performed by Dr. Cruz/Bethanie Heller APRN on 06/20/18 ([id number])
[2018-06-20] MEDS: PROTONIX PO SCH (12:50)
[2018-06-20] MEDS: ENTOCORT EC PO SCH ×3 (12:51→21:10)
[2018-06-20] MEDS: MACRODANTIN PO SCH ×2 (12:51→21:10)
[2018-06-20] MEDS: ZEBETA PO SCH (12:53)
--- NOTE | 2018-06-20 13:00 | CT ---
EXAM: CT of the abdomen pelvis with contrast History: Abdominal pain. Comparison: CT abdomen pelvis 06/16/2018 Technique: Multiplanar CT images through the abdomen pelvis were obtained following administration o f IV contrast. Findings: Lung bases are clear. No acute osseous abnormalities. Degenerative changes of the lumbar spine. Grade 1 anterolisthesis of L4 on L5 and L5 on S1. Severe degenerative disc disease at L4-L5 and L5-S1. Gallbladder wall thickening. Atherosclerotic vascular calcifications. No focal liver or splenic les ions. Pancreas is unremarkable. Anterior surgical yanet. Adrenal glands are unremarkable. No re nal masses. No hydronephrosis. There is persistent wall thickening of the left side of the colon wi th mucosal edema. The colon is more distended compared to the prior study and colon is fluid-filled. Small amount of pericolonic fluid and small amount of fluid in the pelvis. No free air. No bladde r wall thickening. Adnexal structures appear appropriate for patient's age. Impression: 1. Persistent colitis, especially involving the left side of the colon. The colon is more distended compared to the prior study and cannot exclude a developing toxic megacolon. 2. Gallbladder wall thickening and enhancement. Recommend further evaluation with right upper quadr ant abdominal ultrasound. 3. Small amount of lower abdominal and pelvic fluid.
[2018-06-20] MEDS: ATIVAN PO SCH (21:10)
[2018-06-20] MEDS: FLEXERIL PO SCH (21:10)
[2018-06-20] MEDS ORDERED: NORVASC PO STA (22:47)
[2018-06-20] MEDS ORDERED: LOTENSIN ONE (22:58)
[2018-06-20] MEDS ORDERED: LOTENSIN PO SCH (23:00)
[2018-06-21] MEDS: FLAGYL 500 MG/100 ML 500 MG in PREMIX 100 ML NS 1 BAG IV SCH (05:39)
[2018-06-21] MEDS: PROTONIX PO SCH (05:40)
[2018-06-21] MEDS: VANCOCIN PO SCH ×4 (05:40→23:00)
[2018-06-21] MEDS ORDERED: AMLODIPINE BESYLATE PO SCH (09:00)
[2018-06-21] MEDS ORDERED: LOTENSIN PO SCH (09:00)
[2018-06-21] MEDS ORDERED: NORVASC PO SCH (09:00)
[2018-06-21] MEDS ORDERED: [UNRECOGNIZED DRUG - OTHER] PO SCH (09:00)
[2018-06-21] MEDS ORDERED: BENAZEPRIL PO SCH (09:00)
--- NOTE | 2018-06-21 11:12 | PCM.PROG ---
Attending Provider: ATTENDING PROVIDER: Dr. NAPOLEON CRUZ This patient is seen with Bethanie Heller, Nurse Practitioner. DATE OF SERVICE: 06/21/18 SUBJECTIVE: This 78 year old WHITE/ F was hospitalized 06/16/18. The patient is sitting in chair resting comfortably. She has been having formed stools. She is eating well. Repeat CT yesterday did not show much improvement however clinically she has improved. REVIEW OF SYSTEMS: CONSTITUTIONAL: Weakness. No night sweats. No malaise, lethargy. No fever or chills. HEENT: Eyes: No visual changes. No eye pain. No eye discharge. ENT: No runny nose. No epistaxis. No sinus pain. No odynophagia. No congestion. RESPIRATORY: No cough, no congestion. No hemoptysis. No shortness of breath. CARDIOVASCULAR: No angina symptoms. No CHF symptoms. No atypical chest pain for CAD. No palpitations. No orthopnea.. GASTROINTESTINAL: No abdominal pain. No nausea or vomiting. No diarrhea or constipation. No hematemesis. No hematochezia. GENITOURINARY: No urgency. No frequency. No dysuria. No hematuria. No obstructive symptoms. No discharge. No pain. No significant abnormal bleeding. MUSCULOSKELETAL: No musculoskeletal pain; no joint swelling. NEUROLOGICAL: Awake, alert, oriented to time, place and person. No headache. No neck pain. No syncope. No seizures. No dizziness. PSYCHIATRIC: Not anxious. No depression. No suicidal thoughts. No homicidal thoughts. SKIN: No rash. No lesions. No wounds. ENDOCRINE: No unexplained weight loss. No weight gain. HEMATOLOGIC/LYMPHATIC: No anemia. No purpura. No petechiae. No prolonged or excessive bleeding. No palpable lymph nodes. PHYSICAL EXAMINATION: GENERAL: The patient is awake, alert and oriented, lying/sitting in bed in no distress. VITAL SIGNS: Temperature 97.8 F, Pulse 78, Respiratory Rate 24, BP 144/76, Pulse Ox 97% HEENT: Head normocephalic, atraumatic. Eyes: Extraocular muscles are intact. Pupils are equal, round and reactive to light and accommodation. Ears: No lesions. Nose appeared normal. Throat: No exudate or erythema. NECK: Supple. No JVD, no carotid bruit. No lymphadenopathy or thyromegaly. LUNGS: Diminished breath sounds. Clear to auscultation. Percussion note normal. Chest symmetrical. HEART: S1, S2, no S3. No murmurs. No cyanosis or clubbing. No ascites. Pulses: Dorsalis pedis and posterior tibial pulses +1 to +2 both sides. ABDOMEN: Soft. No abdominal tenderness. Bowel sounds active. No CVA tenderness. No mass felt. EXTREMITIES: No edema. Full range of motion of all extremities, equal. NEUROLOGIC: No focal deficit. Cranial nerves II through XII are grossly intact. No headache, no double vision or headache. SKIN: Not dry. Intact. Turgor-normal. LYMPHATIC: No palpable lymph nodes/no lymphedema. MUSCULOSKELETAL: Normal joints with no swelling. Muscle tone is normal. LAB REVIEW: 06/21/18 04:15 06/21/18 04:15 06/21/18 04:15: Sodium 136.0 L, Potassium 3.35 L, Chloride 105.4, Carbon Dioxide 26.0, Anion Gap 7.95, BUN 11.1, Creatinine 0.64, Estimated GFR (MDRD) 90.00, BUN/Creatinine Ratio 17.34, Glucose 88.7, Calcium 8.79, Total Bilirubin 0.36, AST 19.3, ALT 13.7, Alkaline Phosphatase 64.8, Total Protein 5.70 L, Albumin 3.29 L, Globulin 2.41, Albumin/Globulin Ratio 1.36 06/21/18 04:15: WBC 12.09 H, RBC 3.25 L, Hgb 9.9 L, Hct 29.1 L, MCV 89.5, MCH 30.5, MCHC 34.0, RDW Coeff of Hemant 13.2, Plt Count 292, Immature Gran % (Auto) 3.9, Neut % (Auto) 66.1, Lymph % (Auto) 17.7, [place] % (Auto) 9.3, Eos % (Auto) 2.3, Baso % (Auto) 0.7, Immature Gran # (Auto) 0.5, Neut # (Auto) 8.0 H, Lymph # (Auto) 2.1, [place] # (Auto) 1.1, Eos # (Auto) 0.3, Baso # (Auto) 0.1 ASSESSMENT: 1. Acute finney colitis 2. Urinary tract infection 3. Anemia 4. Acute bronchitis 5. Chronic pain 6. Hypokalemia PLAN: 1. Change Flagyl to p.o. 2. US right upper quadrant. 3. Potassium 40 mEq b.i.d. 4. Will get a referral to GI. Plan and coordination of the patient's care discussed in the presence of Hand Button Splitter and nurse. CONDITION: Stable SCRIBED BY: BRITTON MCCARTHY Manager [employer] scribed while in presence of service performed by Dr. Cruz/Bethanie Heller APRN on 06/21/18 ([id number])
[2018-06-21] MEDS: NORCO 7.5-325 PO SCH ×4 (11:51→20:19)
[2018-06-21] MEDS: K-DUR PO SCH ×2 (12:07→17:40)
[2018-06-21] MEDS: FLAGYL PO SCH ×3 (12:08→20:19)
[2018-06-21] MEDS: ZEBETA PO SCH (12:08)
[2018-06-21] MEDS: MACRODANTIN PO SCH ×2 (12:10→20:19)
[2018-06-21] MEDS: ENTOCORT EC PO SCH ×3 (12:10→20:19)
--- NOTE | 2018-06-21 12:49 | US ---
Exam: Ultrasonographic evaluation of the liver, gallbladder and pancreas. Comparison: CT abdomen pelvis performed 06/20/2018. Reason for exam: Epigastric pain. FINDINGS: The liver measures approximately 13.7 cm with a heterogeneous appearing echotexture. There is normal antegrade portal venous flow without obvious ductal dilatation or perihepatic free fl uid. The gallbladder wall is thickened measuring 0.38 cm. Sonographic Slaughter's test is reportedly negativ e. The common bile duct measures up to 0.5 cm without evidence of intraluminal stone or polyp. The partially imaged pancreas appears grossly unremarkable although evaluation is limited by overlyin g bowel gas. The right kidney measures approximately 8.8 x 4.1 x 3.7 cm without obvious hydronephrosis or nephroli thiasis. Impression: 1. Thickening of the gallbladder wall measuring up to 0.38 cm. The sonographic Slaughter's test is rep ortedly negative. 2. Heterogeneous appearing hepatic echotexture.
[2018-06-21] MEDS ORDERED: LOPRESSOR IVP STA (14:01)
--- NOTE | 2018-06-21 14:14 | PN ---
DATE OF SERVICE: 06/18/18 SUBJECTIVE: 78-year-old white female hospitalized with bloody diarrhea. The patient's condition has improved. Her diarrhea practically has subsided. This morning she just had one diarrheal stool about 12 hours ago. The patient has already eaten breakfast with no problem. She has not much cramping at all. There is no oozing blood through her rectum. The is in the room. REVIEW OF SYSTEMS: CONSTITUTIONAL: Fatigue and weakness. No night sweats. No malaise, lethargy. No fever or chills. HEENT: Eyes: No visual changes. No eye pain. No eye discharge. ENT: No runny nose. No epistaxis. No sinus pain. No sore throat. No odynophagia. No congestion. RESPIRATORY: No cough, no congestion. No hemoptysis. No shortness of breath. CARDIOVASCULAR: No angina symptoms. No CHF symptoms. No atypical chest pain for CAD. No palpitations. No orthopnea. GASTROINTESTINAL: Occasional cramping, not so far today the past 6 to 8 hours, diarrheal stool one time with mild blood-tinged mucus, mucus like stool. No abdominal pain. No nausea or vomiting. No diarrhea or constipation. No hematemesis. No hematochezia. GENITOURINARY: No urgency. No frequency. No dysuria. No hematuria. No obstructive symptoms. No discharge. No pain. No significant abnormal bleeding. MUSCULOSKELETAL: No musculoskeletal pain; no joint swelling. NEUROLOGICAL: No headache. No neck pain. No syncope. No seizures. No dizziness. PSYCHIATRIC: Not anxious. No depression. No suicidal thoughts. No homicidal thoughts. SKIN: No rash. No lesions. No wounds. ENDOCRINE: No unexplained weight loss. No weight gain. HEMATOLOGIC/LYMPHATIC: No anemia. No purpura. No petechiae. No prolonged or excessive bleeding. No palpable lymph nodes. PHYSICAL EXAMINATION: GENERAL: The patient is oriented to time, place and person. VITAL SIGNS: Temperature 98, pulse 94, respiratory rate 24, BP 148/70, pulse ox 98%. HEENT: Head normocephalic, atraumatic. Eyes: Extraocular muscles are intact. Pupils are equal, round and reactive to light and accommodation. Ears: No lesions. Nose appeared normal. Throat: No exudate or erythema. NECK: Supple. No JVD, no carotid bruit. No lymphadenopathy or thyromegaly. LUNGS: Decreased breath sounds but clear to auscultation. Percussion note normal. Chest symmetrical. HEART: S1, S2, no S3. No murmurs. No cyanosis or clubbing. No ascites. Pulses: Dorsalis pedis and posterior tibial pulses +1 to +2 both sides. ABDOMEN: Soft. Mildly tender. No distention. Bowel sounds active. No CVA tenderness. No mass felt. EXTREMITIES: No edema. Full range of motion of all extremities, equal. NEUROLOGIC: No focal deficit. Cranial nerves II through XII are grossly intact. No headache, no double vision or headache. SKIN: Warm and dry. Intact. Turgor - much better. Skin color looks good. LYMPHATIC: No palpable lymph nodes/no lymphedema. MUSCULOSKELETAL: Normal joints with no swelling. Muscle tone is normal. LABS: Hemoglobin 10, hematocrit 29. WBC 13,000, normal differential. Creatinine 0.7, BUN 9, potassium 4.4, glucose 118. ASSESSMENT: 1. BLOODY FOUL-SMELLING DIARRHEA SEEMS TO BE SUBSIDING, LIKELY C. DIFF. PLAN: 1. Continue 1 cc Decadron along with Flagyl and Vancomycin p.o. with Budesonide 3 mg p.o. t.i.d. 2. C. diff education carried out in detail. CONDITION: Stable. TIME SPENT: More than 30 minutes. Plan and coordination of the patient's care discussed in the presence of nurse. EDGARDO
--- NOTE | 2018-06-21 14:17 | PN ---
DATE OF SERVICE: 06/19/18 SUBJECTIVE: The patient was seen and examined with the nurse practitioner. The patient did not have any BM so far until this afternoon today. She doesn't have abdominal cramping. Hemoglobin has dropped to 8.7 with hematocrit of 25. The patient has GI bleed. C. diff so far negative. CT scan showed acute finney colitis. The patient is being treated with steroids and antibiotics. PLAN: 1. Will continue IV fluids. 2. The patient should be up and about. Condition stable. TIME SPENT: More than 30 minutes. Plan and coordination of the patient's care discussed in the presence of nurse. EDGARDO
[2018-06-21] MEDS ORDERED: CARDIZEM ONE (14:20)
[2018-06-21] MEDS: CARDIZEM PO SCH ×2 (14:24→20:19)
[2018-06-21] MEDS: FLEXERIL PO SCH (20:19)
[2018-06-21] MEDS: ATIVAN PO SCH (20:19)
[2018-06-22] MEDS: VANCOCIN PO SCH ×2 (05:48→12:25)
[2018-06-22] MEDS: PROTONIX PO SCH (05:48)
[2018-06-22] MEDS: FLAGYL PO SCH ×2 (05:48→12:26)
[2018-06-22] MEDS: K-DUR PO SCH (08:59)
[2018-06-22] MEDS: NORCO 7.5-325 PO SCH ×2 (09:00→12:25)
[2018-06-22] MEDS: ENTOCORT EC PO SCH (09:01)
[2018-06-22] MEDS: CARDIZEM PO SCH (09:01)
[2018-06-22] MEDS: MACRODANTIN PO SCH (09:02)
[2018-06-22] MEDS: ZEBETA PO SCH (09:03)
[2018-06-22 10:16] VITALS: BP 124/76; TEMP 98
--- NOTE | 2018-06-22 11:18 | CM.DICTOOL ---
ADMISSION: 06/16/18 20:58 DISCHARGE: 2017 DATE OF SERVICE: 06/22/18 FINAL DIAGNOSIS COLITIS, ACUTE ANEMIA URINARY TRACT INFECTION, E-COLI ATRIAL FIBRILLATION, PAROXYSMAL HYPERTENSION DYSLIPIDEMIA CHRONIC LUNG DISEASE DJD SPINE ANXIETY FORMER SMOKER, STOPPED AGE 63 HEMORRHOIDECTOMY D&C COLONOSCOPY, 2014 (DR. MALONEY) LAST VITALS Temp Pulse Resp BP Pulse Ox 97.9 F 86 24 152/64 H 97 06/22/18 06:00 06/22/18 06:00 06/22/18 06:00 06/22/18 06:18 06/22/18 06:00 TAKE THESE MEDICATIONS AT HOME Aspirin 81 mg PO DAILY Last Admin: Hydrocodone Bitart/Acetaminophen ([place] 7.5-325) 1 tab PO TID PRN Last Admin: 06/22/18 09:00 Dose: 1 tab Bisoprolol Fumarate (Zebeta) 5 mg PO DAILY [facility] Last Admin: 06/22/18 09:03 Dose: 5 mg Budesonide (Entocort Ec) 3 mg PO BID [facility] Last Admin: 06/22/18 09:01 Dose: 3 mg Budesonide/Formoterol Fumarate (Symbicort 160-4.5 Mcg Inhaler) 1 puff IH BID PRN PRN Reason: Shortness of air Cyclobenzaprine HCl (Flexeril) 10 mg PO BEDTIME [facility] Last Admin: 06/21/18 20:19 Dose: 10 mg Diltiazem HCl (Cardizem) 60 mg PO Q12HR [facility] Last Admin: 06/22/18 09:01 Dose: 60 mg Fluticasone Propionate (Flonase) 1 spray ASAF DAILY PRN PRN Reason: ALLERGY SYMPTONS Last Admin: 06/19/18 09:06 Dose: 1 spray Lorazepam (Ativan) 0.5 mg PO BEDTIME [facility] Last Admin: 06/21/18 20:19 Dose: 0.5 mg Metronidazole (Flagyl) 250 mg PO Q8HR [facility] Last Admin: 06/22/18 05:48 Dose: 500 mg Nitrofurantoin Macrocrystals (Macrodantin) 100 mg PO BID [facility] Last Admin: 06/22/18 09:02 Dose: 100 mg Esomeprazole Magnesium (Nexium) 40 mg PO QDAC [facility] Last Admin: 06/22/18 05:48 Dose: 40 mg Potassium Chloride (K-Dur) 10 meq PO DAILY [facility] Last Admin: 06/22/18 08:59 Dose: 40 meq Losartan (Cozaar) 50 mg PO DAILY Last Admin: ALLERGIES cephalexin monohydrate [From Keflex] Adverse Reaction (Verified 09/18/14 12:25) latex Adverse Reaction (Verified 09/18/14 12:25) meperidine HCl [From Demerol] Adverse Reaction (Verified 09/18/14 12:25) Sulfa (Sulfonamide Antibiotics) Adverse Reaction (Verified 09/18/14 12:25) DISCONTINUED MEDICATIONS Lotrel 5-40 (Amlodipine/Benazepril) NEW PRESCRIPTIONS: Flagyl 250 mg TID for 5 days Macrodantin 100 mg BID for 4 days Entocort Ec 3 mg BID for 5 days Cardizem 60 mg BID Cozaar 50 mg Daily K-Dur 10 meq Daily for 10 days SMOKING: Not Applicable DISEASE SPECIFIC EDUCATION: Medications Activity Nutrition Appointments LAB REVIEW: 06/22/18 04:30 06/22/18 04:30 06/22/18 04:30: Sodium 135.2 L, Potassium 3.87, Chloride 101.9, Carbon Dioxide 27.5, Anion Gap 9.67, BUN 8.9, Creatinine 0.58 L, Estimated GFR (MDRD) 101.00, BUN/Creatinine Ratio 15.34, Glucose 91.7, Calcium 8.44, Total Bilirubin 0.53, AST 20.8, ALT 12.8, Alkaline Phosphatase 62.3, Total Protein 6.00 L, Albumin 3.41 L, Globulin 2.59, Albumin/Globulin Ratio 1.31 06/22/18 04:30: WBC 13.51 H, RBC 3.41 L, Hgb 10.4 L, Hct 30.1 L, MCV 88.3, MCH 30.5, MCHC 34.6, RDW Coeff of Hemant 13.0, Plt Count 316, Immature Gran % (Auto) 3.8, Neut % (Auto) 67.6, Lymph % (Auto) 16.5, [place] % (Auto) 9.5, Eos % (Auto) 2.0, Baso % (Auto) 0.6, Immature Gran # (Auto) 0.5, Neut # (Auto) 9.1 H, Lymph # (Auto) 2.2, [place] # (Auto) 1.3, Eos # (Auto) 0.3, Baso # (Auto) 0.1 PLAN: Discharge home Diet: Regular as tolerated, avoid spicy foods Activity: Gradually resume as tolerated An appointment is scheduled with Dr. Cruz/Bethanie Heller APRN on June 26, 2018 at 9:45 am An appointment is scheduled with Dr. Maloney/Anne Waterman APRN on June at 1 PM Code Status: Full Code per patient request Mrs. Skelton is alert and oriented x 3. She is independent with Activities of Daily Living. She is ambulatory without staff assistance or use of an assistive device. Mrs. Skelton is continent of bladder and bowel. Meal intakes are fair at 25-75%; no nausea reported. Skin is intact with good skin turgor. Bruising is noted to both hands. Garcia Cruz MD
--- NOTE | 2018-06-22 12:25 | PCM.PROG ---
Attending Provider: ATTENDING PROVIDER: Dr. NAPOLEON COLE DATE OF SERVICE: 06/22/18 SUBJECTIVE: This 78 year old WHITE/ F was hospitalized 06/16/18 with acute onset of bloody diarrhea. The patient hasn't had diarrhea for past 4 days. She is is on Flagyl and Vancomycin along with steroids. The patient's CT scan repeat showed persistent colitis on the left side with possibility of toxic luiza colon. The patient does not have any abdominal pain at all and has no bloody diarrhea. Appetite improved. Bowel movements are soft but normal. She has been up and about, is afebrile. WBC 13,000 she has no evidence of toxic colon clinically. She wants to go home. She had episode of atrial fibrillation yesterday, which resolved. She has past history of paroxysmal atrial fibrillation. She refuses Novel blood thinners. Medications were changed, Lotrel discontinued. She is put on Cardizem and Cozaar combination with continuation of Bisoprolol. She will be discharged home on Flagyl and Macrobid for UTI. REVIEW OF SYSTEMS: CONSTITUTIONAL: No night sweats. No fatigue, malaise, lethargy. No fever or chills. HEENT: Eyes: No visual changes. No eye pain. No eye discharge. ENT: No runny nose. No epistaxis. No sinus pain. No odynophagia. No congestion. RESPIRATORY: No cough, no congestion. No hemoptysis. No shortness of breath. CARDIOVASCULAR: No angina symptoms. No CHF symptoms. No atypical chest pain for CAD. No palpitations. No orthopnea.. GASTROINTESTINAL: Appetite is better. No abdominal pain. No tenderness. No nausea or vomiting. No diarrhea or constipation. No hematemesis. No hematochezia. GENITOURINARY: No urgency. No frequency. No dysuria. No hematuria. No obstructive symptoms. No discharge. No pain. No significant abnormal bleeding. MUSCULOSKELETAL: No musculoskeletal pain; no joint swelling. NEUROLOGICAL: Awake, alert, oriented to time, place and person. No headache. No neck pain. No syncope. No seizures. No dizziness. PSYCHIATRIC: Not anxious. No depression. No suicidal thoughts. No homicidal thoughts. SKIN: No rash. No lesions. No wounds. ENDOCRINE: No unexplained weight loss. No weight gain. HEMATOLOGIC/LYMPHATIC: No anemia. No purpura. No petechiae. No prolonged or excessive bleeding. No palpable lymph nodes. PHYSICAL EXAMINATION: GENERAL: The patient is awake, alert and oriented, sitting in chair in no distress. VITAL SIGNS: Temperature 97.9 F, Pulse 86, Respiratory Rate 24, BP 152/64, Pulse Ox 97% HEENT: Head normocephalic, atraumatic. Eyes: Extraocular muscles are intact. Pupils are equal, round and reactive to light and accommodation. Ears: No lesions. Nose appeared normal. Throat: No exudate or erythema. NECK: Supple. No JVD, no carotid bruit. No lymphadenopathy or thyromegaly. LUNGS: Clear to auscultation. Percussion note normal. Chest symmetrical. HEART: S1, S2, no S3. No murmurs. No cyanosis or clubbing. No ascites. Pulses: Dorsalis pedis and posterior tibial pulses +1 to +2 both sides. ABDOMEN: Soft. No abdominal tenderness. Bowel sounds active. No CVA tenderness. No mass felt. EXTREMITIES: No edema. Full range of motion of all extremities, equal. NEUROLOGIC: No focal deficit. Cranial nerves II through XII are grossly intact. No headache, no double vision or headache. SKIN: Warm and dry. Intact. Turgor-normal. LYMPHATIC: No palpable lymph nodes/no lymphedema. MUSCULOSKELETAL: Normal joints with no swelling. Muscle tone is normal. LAB REVIEW: 06/22/18 04:30 06/22/18 04:30 06/22/18 04:30: Sodium 135.2 L, Potassium 3.87, Chloride 101.9, Carbon Dioxide 27.5, Anion Gap 9.67, BUN 8.9, Creatinine 0.58 L, Estimated GFR (MDRD) 101.00, BUN/Creatinine Ratio 15.34, Glucose 91.7, Calcium 8.44, Total Bilirubin 0.53, AST 20.8, ALT 12.8, Alkaline Phosphatase 62.3, Total Protein 6.00 L, Albumin 3.41 L, Globulin 2.59, Albumin/Globulin Ratio 1.31 06/22/18 04:30: WBC 13.51 H, RBC 3.41 L, Hgb 10.4 L, Hct 30.1 L, MCV 88.3, MCH 30.5, MCHC 34.6, RDW Coeff of Hemant 13.0, Plt Count 316, Immature Gran % (Auto) 3.8, Neut % (Auto) 67.6, Lymph % (Auto) 16.5, [place] % (Auto) 9.5, Eos % (Auto) 2.0, Baso % (Auto) 0.6, Immature Gran # (Auto) 0.5, Neut # (Auto) 9.1 H, Lymph # (Auto) 2.2, [place] # (Auto) 1.3, Eos # (Auto) 0.3, Baso # (Auto) 0.1 ASSESSMENT: 1. Acute colitis resolved. 2. UTI under treatment 3. Episode of atrial fibrillation, resolved 4. Hypertension PLAN: 1. Will discharge home. 2. Continue medications: a) Flagyl 250 mg t.i.d. times 5 days b) D/C Vancomycin c) Macrodantin times four more days d) Stop Lotrel e) Bisoprolol 5 mg p.o. daily f) Cardizem 60 mg twice daily g) Cozaar 50 mg p.o. daily h) Continue Budesonide 3 mg b.i.d. daily for five days 3. Will do echocardiogram before discharge. 4. The patient has appointment on 06/29/[address] Eddy at 1 p.m. Plan and coordination of the patient's care discussed in the presence of Residential Life Director and nurse. CONDITION: Stable SCRIBED BY: BRITTON MCCARTHY Workers Compensation Paralegal scribed while in presence of service performed by Dr. NAPOLEON COLE on 06/22/18 ([id number])
--- NOTE | 2018-06-22 12:49 | DS ---
DATE OF SERVICE: 06/22/18 FINAL DIAGNOSIS: 1. COLITIS, ACUTE 2. ANEMIA 3. URINARY TRACT INFECTION, E.COLI 4. ATRIAL FIBRILLATION PAROXYSMAL 5. HYPERTENSION 6. DYSLIPIDEMIA 7. CHRONIC LUNG DISEASE 8. DJD SPINE 9. ANXIETY 10. FORMER SMOKER STOPPED AGE 63 11. HEMORRHOIDECTOMY 12. D & C 13. COLONOSCOPY APRIL 2015 (DR. BERNAL) DISCHARGE INSTRUCTIONS: Followup appointment with Dr. Cruz/Bethanie Heller APRN on 06/26/18 at 9:45. An appointment is scheduled with Dr. Bernal/Anne Waterman APRN on 06/29/18 at 1 p.m. MEDICATIONS AT DISCHARGE: Pravachol 40 mg p.o. daily Nexium 40 mg p.o. daily Aspirin 81 mg p.o. daily Ativan 0.5 mg p.o. bedtime Flexeril 10 mg p.o. daily Hydrocodone/Acetaminophen one each p.o. t.i.d. p.r.n. Budesonide/Formoterol one puff IH b.i.d NEW PRESCRIPTIONS: Flagyl 250 mg t.i.d. for 5 days Macrodantin 100 mg b.i.d. for 4 days Entocort EC 3 mg b.i.d. for 5 days Cardizem 60 mg b.i.d. Cozaar 50 mg daily K-Dur 10 mEq daily for 10 days DISCONTINUED MEDICATIONS: Lotrel 5-40 DIET INSTRUCTIONS: Regular as tolerated, avoid spicy foods. ACTIVITY: Gradually resume as tolerated. SMOKING: N/A DISEASE SPECIFIC EDUCATION: Medications Activity Nutrition Appointments HOSPITAL COURSE: This 78-year-old White/ female was hospitalized with acute onset of bloody diarrhea. The patient had colitis involving the entire colon with mildly distended abdomen. C. diff was negative but had evidence of C. difficile like foul smelling stools with high WBC count. The patient's condition clinically improved on Flagyl, Vancomycin and Budesonide with intermittent Decadron. Now has practically normal stools, soft-formed a couple times a day and has a normal appetite. She is up and about. The patient's physical examination showed entirely negative abdomen. She has no fever, no chills. Hemoglobin and hematocrit are rising. Initial drop was from hemodilution. The patient had brief episode of atrial fibrillation yesterday treated with Lopressor and started on Cardizem. She returned to sinus rhythm. She will undergo echocardiogram today. She has an appointment to see GI on 06/29/18. She is to see me back on Tuesday. In case she has cramping or diarrhea, she is strongly advised to go to the nearest ER. TIME SPENT: More than 60 minutes. EDGARDO
--- NOTE | 2018-06-22 12:53 | PN ---
CODING FOR BILLING 06/16/18 - ADMISSION LEVEL 5 06/17/18 INTERMEDIATE 06/18/18 INTERMEDIATE 06/19/18 INTERMEDIATE 06/20/18 INTERMEDIATE 06/21/18 INTERMEDIATE 06/22/18 DISCHARGE MTDD
== END 2018-06-22 13:45 | disposition home or self-care (01) | DRG 392 ==
LOC: ED 19:04 → SCU 20:58
PROVIDERS: ADMIT Internal Medicine; ATTEND Internal Medicine
DX: R19.7 Diarrhea, unspecified (principal); N39.0 Urinary tract infection, site not specified; B96.20 Unspecified Escherichia coli [E. coli] as the cause of diseases classified elsewhere; K52.9 Noninfective gastroenteritis and colitis, unspecified; J20.9 Acute bronchitis, unspecified; J98.4 Other disorders of lung; I10 Essential (primary) hypertension; I48.0 Paroxysmal atrial fibrillation; E78.5 Hyperlipidemia, unspecified; E87.6 Hypokalemia; D64.9 Anemia, unspecified; M15.9 Polyosteoarthritis, unspecified; M47.9 Spondylosis, unspecified; F41.9 Anxiety disorder, unspecified; G89.29 Other chronic pain; R25.2 Cramp and spasm; Z87.891 Personal history of nicotine dependence
CPT/HCPCS: 36415; 80053; 81001; 82150; 82550; 83605; 83690; 84145; 84484; 85007; 85025; 85651; 87015; 87040; 87045; 87081; 87086; 87186; 87493; 87899; 93005; 93010; 93227; 96361; 99285

== ENCOUNTER 2023-08-24 14:09 | Inpatient (IN) ==
[2023-08-24] MEDS ORDERED: DUONEB NEB ONE (14:25)
--- NOTE | 2023-08-24 14:27 | ED.PDOC ---
General ED Provider: Dr. TARIQ OGDEN MD Chief Complaint: Respiratory Complaint Stated Complaint: cough, congestion, weakness 83-year-old female presents the emergency department for evaluation of cough, congestion, weakness. Patient has been sick with a cough for the last 3 to 4 weeks. Has followed with her doctor and been started on a Zithromax 5-day pack as well as steroids. She completed this, did not improve so was started on another round of steroids, then Cefdinir. She picked up the prescription. She looked it up and noted that it was a cephalosporin. She is allergic to Keflex, so she did not take the medication. She did not call her doctor either. She told him today that she never took the 2nd antibiotic. She did take the 2nd round of steroids though. There has been no improvement. She reports that her symptoms have only gotten worse. No point did she have any feeling of improvement. States that from yesterday to today she has gotten significantly weaker and has no energy. Feels very short of breath with any activity. Denies any lower extremity swelling. Denies any chest pain. Denies any fevers or sick contacts. Does report that she has a cough that is occasionally productive of white or yellow sputum. Was seen in the office by her primary doctor today and sent to the ER for further workup. No recent hospitalization or travel history. No recent surgery. Time Seen by Provider: 08/24/23 14:13 Mode of Arrival: Walk-In Information Source: Patient Exam Limitations: No limitations Primary Care Provider: NAPOLEON COLE MD Referred to ED by: PCP Seen Within Last 72 Hours for Same Complaint By: ED Nursing and Triage Documentation Reviewed and Agree: Yes Review of Systems Review Of Systems Constitutional: Reports No symptoms, Malaise and Weakness Respiratory: Reports Cough, Shortness of Breath and Wheezing All Other Systems: Reviewed and Negative [facility] Medical History Bruit of right carotid artery R09.89 - Other specified symptoms and signs involving the circulatory and respiratory systems (ICD-10) Aortic valve calcification I35.9 - Nonrheumatic aortic valve disorder, unspecified (ICD-10) Small vessel disease, cerebrovascular I67.9 - Cerebrovascular disease, unspecified (ICD-10) Abdominal hernia K46.9 - Unspecified abdominal hernia without obstruction or gangrene (ICD- 10) Colitis K52.9 - NONINFECTIVE GASTROENTERITIS AND COLITIS, UNSPECIFIED (ICD-10) Family History FATHER Cancer Mother Stroke Social History Smoking and tobacco status: Former smoker Tobacco: How many years used: 30 Alcohol intake: never Substance use type: does not use Special johanne needs: No Agree to transfusion: Yes Adopted: No Caregiver/support person: No Foster care: No Household members: spouse Housing: house Marital status: M Lives independently: Yes Number of children: 1 Financial difficulty paying for basics: not very hard service: No snf: No Current occupational status: retired History of recent travel: No Do you think of yourself as: straight/heterosexual Current gender identity: female Seatbelt use: always Helmet use: No Drives intoxicated or rides with intoxicated driver courier: No Water heater temperature set < 120 degrees: Yes Working smoke detector in home: Yes Fire extinguisher in home: Yes Carbon monoxide detector in home: Yes Surgical History History of atherectomy 1994 Z98.890 - Other specified postprocedural states (ICD-10) Female Reproductive History Menstrual Hx Hysterectomy: No Physical Exam Physical Exam Appearance: Reports Well-appearing Ill-appearing: None Pain Distress: None Eyes: Reports DENTON ENT: Reports Oropharynx normal Neck: Supple Respiratory: Reports Airway patent, Breath sounds equal, Rhonchi and Wheezes Cardiovascular: Reports RRR and Pulses normal GI/: Reports Soft and Nontender Musculoskeletal: Reports Normal strength, No edema and No calf tenderness Skin: Reports Warm, Dry and Normal color Neurological: Reports Cranial nerves intact, Alert and Oriented Psychiatric: Reports Affect appropriate Interpretation EKG Interpretation EKG Interpretation By: ED Physician Time of EKG #1: 14:31 Rate: Normal Rhythm: Sinus Ectopy: None Woodruff: NL ST Segment: Normal Interpretation: RBBB no prior for comparison Critical Care Note Critical Care Note Total Critical Care Time (mins): 0 Course Course 08/24/23 14:34 08/24/23 14:34 Orders, Labs, Meds: Lab Review 08/24/23 08/24/23 08/24/23 14:25 14:28 14:34 WBC 17.86 H RBC 4.12 L Hgb 13.0 Hct 38.4 MCV 93.2 MCH 31.6 H MCHC 33.9 RDW Coeff of Hemant 12.4 Plt Count 287 Immature Gran % (Auto) 0.5 Neut % (Auto) 81.4 H Lymph % (Auto) 11.0 Lee % (Auto) 6.4 Eos % (Auto) 0.4 Baso % (Auto) 0.3 Neut # (Auto) 14.5 H Lymph # (Auto) 2.0 Lee # (Auto) 1.2 Eos # (Auto) 0.1 Baso # (Auto) 0.1 Immature Gran # (Auto) 0.1 Sodium 125.4 L Potassium 3.90 Chloride 90.1 L Carbon Dioxide 25.7 Anion Gap 13.50 BUN 17.7 H Creatinine 0.64 Estimated GFR (MDRD) 89.00 BUN/Creatinine Ratio 27.65 Glucose 110.0 H Lactic Acid 1.28 Calcium 9.48 Total Bilirubin 1.08 AST 27.6 ALT 28.8 Alkaline Phosphatase 125.9 Troponin I 0.018 NT-Pro-B Natriuret Pep 1900 H Total Protein 7.94 Albumin 4.46 Globulin 3.48 Albumin/Globulin Ratio 1.28 Influ A Molecular Assay Negative by naat Influ B Molecular Assay Negative by naat RSV Antigen Negative by naat SARS CoV-2 RNA Rapid LATASHA Negative Orders Category Date Time Status ADMIT PATIENT INPATIENT .TO [facility] (MONITORED BED) ADMISSION 08/24/23 15:16 Ordered EKG-(ED ONLY) Stat CARDIO 08/24/23 14:12 Completed TELEMETRY MONITORING TELE CARE 08/24/23 15:16 Ordered ED IV/MEDIPORT/POWERPORT .ONCE EMERGENCY 08/24/23 14:12 Active BLOOD CULTURE (ED ONLY) Stat LAB 08/24/23 15:10 Received CBC W/ AUTO DIFF Stat LAB 08/24/23 14:34 Completed COMPREHENSIVE METABOLIC PANEL Stat LAB 08/24/23 14:34 Completed ED PROBNP [NT-PROBNP(ED)] Stat LAB 08/24/23 14:34 Completed FLU A & B MOLECULAR [FLU A/B MOLECULAR] Stat LAB 08/24/23 14:25 Completed LACTIC ACID Stat LAB 08/24/23 14:34 Completed PROCALCITONIN Stat LAB 08/24/23 14:34 Received RSV Stat LAB 08/24/23 14:28 Completed SARS COV-2 RNA RAPID LATASHA Stat LAB 08/24/23 14:25 Completed TROPONIN I Stat LAB 08/24/23 14:34 Completed UA [URINALYSIS C & S IF INDICATED] Stat LAB 08/24/23 14:28 Uncollected 0.9 % Sodium Chloride [Saline Flush] Meds 08/24/23 14:12 Active 1 syr IVF PRN PRN Furosemide [Lasix] Meds 08/24/23 15:16 Once 20 mg IVP ONCE ONE Ipratropium/Albuterol Neb [Duoneb] Meds 08/24/23 14:25 Discontinued 3 ml NEB ONCE ONE CHEST, 2 VIEWS PA & LAT Stat RADS 08/24/23 14:12 Completed Medications Generic Name Dose Route Start Last Admin Trade Name Freq PRN Reason Stop Dose Admin Sodium Chloride 1 syr 08/24/23 14:12 0.9% Sodium Chloride 10 Ml Disp.Syrin IVF PRN PRN To flush IV Discontinued Medications Generic Name Dose Route Start Last Admin Trade Name Freq PRN Reason Stop Dose Admin Albuterol/Ipratropium 3 ml 08/24/23 14:25 08/24/23 14:47 Ipratropium/Albuterol Vial.Neb NEB 08/24/23 14:26 3 ml ONCE ONE Administration Furosemide 20 mg 08/24/23 15:16 Furosemide Inj 20 Mg/2 Ml Vial IVP 08/24/23 15:17 ONCE ONE Vital Signs: Temp Pulse Resp BP Pulse Ox 08/24/23 14:13 97.6 F 77 20 85/61 L 93 L Discharge Plan Discharge Patient Disposition: ADMITTED INPATIENT Discharge Problem: CHF (congestive heart failure), Weakness generalized, Hypoxia, Bronchitis, Acute hyponatremia Prescriptions: No Action mupirocin 2 % ointment See Rx Instructions .ROUTE .COMPLEX Qty: 22 2RF Dose Instruction: APPLY TO AFFECTED AREA TOPICALLY THREE TIMES DAILY GENERIC FOR BACTROBAN Rx Instructions: APPLY TO AFFECTED AREA TOPICALLY THREE TIMES DAILY GENERIC FOR BACTROBAN lorazepam [Ativan] 0.5 mg tablet 0.5 mg PO BEDTIME PRN (Reason: Sleep) Qty: 30 0RF hydrocodone-acetaminophen 7.5-325 mg tablet 1 tab PO QID PRN (Reason: pain) Qty: 120 0RF budesonide-formoterol [Symbicort] 1 PUFF HFA aerosol inhaler 1 puff inhalation BID PRN (Reason: difficulty breathing) losartan [Cozaar] 50 mg tablet 50 mg PO BID Qty: 180 1RF aspirin 81 mg tablet,chewable 81 mg PO QDAY ropinirole 0.5 mg tablet 0.5 mg PO QDAY Rx Instructions: Take 1 tablet at bedtime for 7 days If NO improvement can take 2 tabs cyclobenzaprine 10 mg tablet 10 mg PO BID PRN (Reason: muscle spasm) Rx Instructions: Take 1 tablet twice a day as needed for pain diltiazem HCl 60 mg tablet 60 mg PO .Q12 Rx Instructions: Take 1 Tablet Every 12 Hour esomeprazole magnesium 40 mg capsule,delayed release(DR/EC) 40 mg PO QDAY bisoprolol fumarate 10 mg tablet 10 mg PO QDAY pravastatin 40 mg tablet 40 mg PO QDAY Did you review [place] [employer] for ALL controlled substances?: Not Applicable ED Provider: TARIQ OGDEN Physician Progress Note: Medical decision making Patient presents with prolonged cough, wheezing, congestion and now increasing fatigue. Given that the patient never took the second antibiotic this could just be a pneumonia that needs a longer course of antibiotic. Additionally, she did take a second round of steroids. This could be an electrolyte abnormality as a result of steroid therapy. Differential diagnosis includes viral pneumonia, bronchitis pleural effusion, pulmonary edema, congestive heart failure, malignancy, anemia, viral syndrome. Patient will be evaluated extensively with laboratory workup, x-ray, cardiac testing. Will trial a breathing treatment to see if that improves her air exchange, wheezing and oxygenation. Patient not in any distress at this time. 3:17 PM Patient's laboratory and radiographic workup has been completed. She is COVID and RSV negative. Chest x-ray shows bronchial thickening in the infrahilar region to suggest bronchitis. No focal airspace consolidation. This was reviewed by radiology. Laboratory workup shows leukocytosis which may be related to recent steroid therapy. Procalcitonin is pending at this time. Lactic acid is normal at 1.28. Patient also is hyponatremic to the 120s. In the past she states she has been hyponatremic and it caused her to have falls. Lastly, she has a negative cardiac enzyme but an elevated BNP at 1900. Review of patient's medical record reveals that she had an echo approximately a year and a half ago that showed an EF of 60 to 65% with no significant valvular abnormalities. Believe the patient would benefit from inpatient hospitalization, diuresis. She was given a DuoNeb while in the emergency department with improvement in her perceived dyspnea. Case was discussed with Dr. Cole who believes the patient would benefit from admission to the hospital. He would like the hospitalist service to admit. Case was discussed with Kaia Willson who will admit her to the hospital for further electrolyte and fluid management.
[2023-08-24 14:39] LABS: BASOPHILS # (AUTO) 0.1 K/uL (0-0.2); BASOPHILS % (AUTO) 0.3 % (0.0-3.0); EOSINOPHILS # (AUTO) 0.1 K/ul (0.0-0.7); EOSINOPHILS % (AUTO) 0.4 % (0.0-7.0); HEMATOCRIT 38.4 % (37.0-47.0); IMMATURE GRANULOCYTE # (AUTO) 0.1 (0.0-1.0); IMMATURE GRANULOCYTE % (AUTO) 0.5 % (0.0-5.0); MEAN CORPUSCULAR HEMOGLOBIN 31.6 pg (27.0-31.0); MEAN CORPUSCULAR HGB CONC 33.9 (31.8-35.4); MEAN CORPUSCULAR VOLUME 93.2 fl (81.0-99.0); MONOCYTES # (AUTO) 1.2 K/uL (0.4-2.0); MONOCYTES % (AUTO) 6.4 (0-10); NEUTROPHILS # (AUTO) 14.5 K/ul (2.0-6.9); NEUTROPHILS % (AUTO) 81.4 % (42.2-75.2); RDW COEFFICIENT OF VARIATION 12.4 % (11.6-14.8); RED BLOOD COUNT 4.12 10^6/ul (4.20-5.40); WHITE BLOOD COUNT 17.86 K/ul (4.6-10.2)
[2023-08-24 14:53] LABS: ALANINE AMINOTRANSFERASE 28.8 U/L (0-35); ALBUMIN 4.46 g/dL (3.5-5.0); ALKALINE PHOSPHATASE 125.9 U/L (53-141); ASPARTATE AMINO TRANSFERASE 27.6 U/L (14-36); BILIRUBIN,TOTAL 1.08 mg/dL (0.2-1.3); BLOOD UREA NITROGEN 17.7 mg/dL (7-17); CALCIUM 9.48 mg/dL (8.4-10.2); CARBON DIOXIDE 25.7 mmol/L (22-30.0); CHLORIDE 90.1 mmol/L (98-107); CREATININE 0.64 mg/dL (0.60-1.30); POTASSIUM 3.9 mmol/L (3.5-5.1); SODIUM 125.4 mmol/L (134.5-145); TOTAL PROTEIN 7.94 g/dL (6.3-8.2)
[2023-08-24 14:59] LABS: PLATELET COUNT 287 10^3/uL (140-440)
[2023-08-24 15:01] LABS: SARS COV-2 RNA RAPID NAAT NEGATIVE (NEGATIVE)
[2023-08-24 15:03] LABS: MOLECULAR FLU A NEGATIVE BY NAAT (NEGATIVE); MOLECULAR FLU B NEGATIVE BY NAAT (NEGATIVE)
[2023-08-24 15:03] LABS: RSV MOLECULAR NEGATIVE BY NAAT (NEGATIVE)
[2023-08-24 15:04] LABS: TROPONIN I 0.018 ng/ml (0.0000-0.120)
--- NOTE | 2023-08-24 15:08 | DI ---
EXAM: CHEST, TWO VIEWS HISTORY: Cough. COMPARISON: Chest radiograph D 04/2019. FINDINGS: Cardiac silhouette is within normal limits. Tortuosity of the descending thoracic aorta with vascula r calcifications. Hyperinflated lungs/emphysematous changes. Mild by apical scarring is unchanged. Peribronchial thickening and suspected bronchitis in the infrahilar regions bilaterally. No pleural effusion or pneumothorax. Surgical clips at the midline in the upper abdomen. Diffuse demineraliza tion. Degenerative changes of the thoracic spine. No focal airspace consolidation. Degenerative ch anges of the shoulders. IMPRESSION: Chronic obstructive pulmonary disease/emphysema. Stable biapical scarring. Mild bronchial wall thickening of the infrahilar region suggesting bronchitis. No focal airspace con solidation. Additional chronic findings as detailed above.
[2023-08-24] MEDS ORDERED: LASIX IVP ONE (15:16)
--- NOTE | 2023-08-24 15:19 | PCM ---
Date of Service Date Seen by Provider: 08/24/23 Time Seen by Provider: 15:20 Admit Day/Time Admission Date: 08/24/23 Admission Time: 15:16 Reason for Admission Chief Complaint: CHF; URI; HYPONATREMIA; HYPOXIA Hospital Provider Hospital Provider: John Neff PA-C, [facility] [place] [facility] Care Physician Primary Care Physician: NAPOLEON CRUZ MD History of Present Illness History of Present Illness: Patient is a 83 year old female from home with pmhx of a fib, hypertension, COPD, gerd, PAD, b12 deficiency, restless leg syndrome, and hyperlipidemia who presented to the ER with cc of sob, fatigue, and weakness. Patient states she's been treated outpatient with URI symptoms. She completed a course of z swetha and 5 days of steroids. She was then given cefdinir and another round of steroids. Did not take the cefdinir due to an allergy. She has continued to feel worse. She has wheezing, has been having to sleep in a recliner instead of a bed. Today she felt weaker than normal which concerned her. She denies unilateral weakness. No recent fever. In ER she was found to have Na 125, bnp 1900, elevated wbc count, procal normal. CXR shows COPD and evidence of bronchitis. She was given lasix 20 and duoneb in the ER. Patient denies history of CHF. Does not take diuretics. Case Discussed With Case Discussed With: Patient's case was discussed with the ER Physicians, Dr. Sylvester. [facility] Medical History Bruit of right carotid artery R09.89 - Other specified symptoms and signs involving the circulatory and respiratory systems (ICD-10) Aortic valve calcification I35.9 - Nonrheumatic aortic valve disorder, unspecified (ICD-10) Small vessel disease, cerebrovascular I67.9 - Cerebrovascular disease, unspecified (ICD-10) Abdominal hernia K46.9 - Unspecified abdominal hernia without obstruction or gangrene (ICD- 10) Colitis K52.9 - NONINFECTIVE GASTROENTERITIS AND COLITIS, UNSPECIFIED (ICD-10) Surgical History History of atherectomy 1994 Z98.890 - Other specified postprocedural states (ICD-10) Family History FATHER Cancer Mother Stroke Social History Smoking and tobacco status: Former smoker Tobacco: How many years used: 30 Alcohol intake: never Substance use type: does not use Special johanne needs: No Agree to transfusion: Yes Adopted: No Caregiver/support person: No Foster care: No Household members: spouse Housing: house Marital status: M Lives independently: Yes Number of children: 1 Financial difficulty paying for basics: not very hard service: No jail: No Current occupational status: retired History of recent travel: No Do you think of yourself as: straight/heterosexual Current gender identity: female Seatbelt use: always Helmet use: No Drives intoxicated or rides with intoxicated straddle bug driver: No Water heater temperature set < 120 degrees: Yes Working smoke detector in home: Yes Fire extinguisher in home: Yes Carbon monoxide detector in home: Yes Allergies Allergies Allergy/AdvReac Type Severity Reaction Status Date / Time cephalexin monohydrate AdvReac Unknown Verified 08/24/23 14:18 [From Keflex] latex AdvReac Unknown Verified 08/24/23 14:18 meperidine HCl [From Demerol] AdvReac Unknown Verified 08/24/23 14:18 Sulfa (Sulfonamide AdvReac Unknown Verified 08/24/23 14:18 Antibiotics) Current Medications Home Medications budesonide-formoterol HFA 160 mcg-4.5 mcg/actuation aerosol inhaler (Symbicort) 1 puff inhalation BID PRN difficulty breathing 03/31/15 [History Confirmed 08/24/23 Last Taken 06/16/18 08:00] aspirin 81 mg chewable tablet 81 mg PO QDAY 11/18/22 [History Confirmed 08/24/23 Last Taken Unknown] mupirocin 2 % topical ointment See Rx Instructions .Route .COMPLEX #22 ea 03/28/23 [Rx Confirmed 08/24/23 Last Taken Unknown] losartan 50 mg tablet (Cozaar) 50 mg PO BID #180 tabs 05/24/23 [Rx Confirmed 08/24/23 Last Taken Unknown] lorazepam 0.5 mg tablet (Ativan) 0.5 mg PO BEDTIME PRN Sleep #30 tabs 07/11/23 [Rx Confirmed 08/24/23 Last Taken Unknown] hydrocodone 7.5 mg-acetaminophen 325 mg tablet 1 tab PO QID PRN pain #120 tabs 07/12/23 [Rx Confirmed 08/24/23 Last Taken Unknown] bisoprolol fumarate 10 mg tablet 10 mg PO QDAY 08/24/23 [History Confirmed 08/24/23 Last Taken Unknown] cyclobenzaprine 10 mg tablet 10 mg PO BID PRN muscle spasm 08/24/23 [History Confirmed 08/24/23 Last Taken Unknown] diltiazem HCl 60 mg tablet 60 mg PO .Q12 08/24/23 [History Confirmed 08/24/23 Last Taken Unknown] esomeprazole magnesium 40 mg capsule,delayed release 40 mg PO QDAY 08/24/23 [History Confirmed 08/24/23 Last Taken Unknown] pravastatin 40 mg tablet 40 mg PO QDAY 08/24/23 [History Confirmed 08/24/23 Last Taken Unknown] ropinirole 0.5 mg tablet 0.5 mg PO QDAY 08/24/23 [History Confirmed 08/24/23 Last Taken Unknown] Home Acetaminophen (Acetaminophen 325 Mg Tablet) 650 mg PO Q4H PRN PRN Reason: Mild Pain Hydrocodone Bitart/Acetaminophen (Hydrocodone Bit/Acetaminophen 7.5/325 Mg Table t) 1 tab PO QID PRN PRN Reason: MODERATE PAIN Last Admin: 08/24/23 22:31 Dose: 1 tab Aspirin (Aspirin 81 Mg Tab.Chew) 81 mg PO DAILYWM2 [facility] Last Admin: 08/25/23 08:49 Dose: 81 mg Bisoprolol Fumarate (Bisoprolol Fumarate 5 Mg Tablet) 10 mg PO DAILY [facility] Last Admin: 08/25/23 08:38 Dose: 10 mg Budesonide/Formoterol Fumarate (Budesonide/Formoterol Fumarate 160/4.5 Mcg Inhaler) 1 puff IH BID PRN PRN Reason: sob Last Admin: 08/24/23 20:45 Dose: 1 puff Cyclobenzaprine HCl (Cyclobenzaprine Hcl 10 Mg Tablet) 10 mg PO BID PRN PRN Reason: muscle pain Last Admin: 08/24/23 21:36 Dose: 10 mg Diltiazem HCl (Diltiazem Hcl 60 Mg Tablet) 60 mg PO Q12HR [facility] Last Admin: 08/25/23 08:34 Dose: 60 mg Doxycycline Hyclate 100 mg/ (Sodium Chloride) 100 mls @ 50 mls/hr IV Q12HR [facility] Stop: 08/27/23 15:59 Last Admin: 08/25/23 09:13 Dose: 50 mls/hr Levalbuterol HCl (Levalbuterol Hcl 1.25 Mg/3 Ml Vial.Neb) 1.25 mg NEB RTQ6H [facility] Lorazepam (Lorazepam 0.5 Mg Tablet) 0.5 mg PO BEDTIME PRN PRN Reason: Insomnia Last Admin: 08/24/23 20:45 Dose: 0.5 mg Losartan Potassium (Losartan Potassium 25 Mg Tablet) 50 mg PO BID [facility] Last Admin: 08/25/23 08:35 Dose: 50 mg Methylprednisolone Sodium Succinate (Methylprednisolone Sod Succ/Pf 40 Mg/Ml Vial) 40 mg IVP Q8HR [facility] Last Admin: 08/25/23 05:15 Dose: 40 mg Ondansetron HCl (Ondansetron Hcl/Pf 4 Mg/2 Ml Sdv) 4 mg IVP Q6H PRN PRN Reason: Nausea / Vomiting Pantoprazole Sodium (Pantoprazole Sodium 40 Mg Tablet.Dr) 40 mg PO QDAC2 [facility] Last Admin: 08/25/23 08:41 Dose: 40 mg Pravastatin Sodium (Pravastatin Sodium 40 Mg Tablet) 40 mg PO DAILY [facility] Last Admin: 08/25/23 08:36 Dose: 40 mg Ropinirole HCl (Ropinirole Hcl 0.25 Mg Tablet) 0.5 mg PO DAILY [facility] Last Admin: 08/25/23 08:36 Dose: 0.5 mg Sodium Chloride (0.9% Sodium Chloride 10 Ml Disp.Syrin) 1 syr IVF PRN PRN PRN Reason: To flush IV Last Admin: 08/25/23 06:24 Dose: 1 syr Sodium Chloride (Sodium Chloride 1 Gm Tablet) 1 gm PO QID [facility] Last Admin: 08/25/23 08:38 Dose: 1 gm Discontinued Medications Albuterol/Ipratropium (Ipratropium/Albuterol Vial.Neb) 3 ml NEB ONCE ONE Stop: 08/24/23 14:26 Last Admin: 08/24/23 14:47 Dose: 3 ml Albuterol/Ipratropium (Ipratropium/Albuterol Vial.Neb) 3 ml NEB RTQ6H [facility] Last Admin: 08/25/23 04:59 Dose: 3 ml Diltiazem HCl (Diltiazem Hcl 60 Mg Tablet) 60 mg PO Q12H [facility] Last Admin: 08/24/23 20:44 Dose: 60 mg Furosemide (Furosemide Inj 20 Mg/2 Ml Vial) 20 mg IVP ONCE ONE Stop: 08/24/23 15:17 Last Admin: 08/24/23 15:23 Dose: 20 mg Metoprolol Tartrate (Metoprolol Tartrate 5 Mg/5 Ml Vial) 5 mg IVP ONCE ONE Stop: 08/25/23 06:12 Last Admin: 08/25/23 06:22 Dose: 5 mg Potassium Chloride (Potassium Chloride 20 Meq Tab) 20 meq PO ONCE ONE Stop: 08/25/23 08:09 Last Admin: 08/25/23 08:45 Dose: 20 meq Review of Systems Constitutional: Reports Fatigue and Weakness; Denies Fever Head: Reports Normocephalic and Atraumatic Cardiovascular: Denies Chest pain, Chest Pressure or Edema Respiratory: Reports Cough, Shortness of air and Wheeze Gastrointestinal: Denies Nausea, Vomiting, Diarrhea, Abdominal pain or Melena Genitourinary: Denies Dysuria or Frequency Dermatologic: Denies Rashes Neurological: Reports Weakness Physical examination Most Recent Vital Signs: Most Recent Vital Signs Temperature 97.6 F 08/24/23 14:13 Temperature Source Infrared 08/24/23 14:13 Pulse Rate 77 08/24/23 14:13 Respiratory Rate 20 08/24/23 14:13 Blood Pressure 85/61 L 08/24/23 14:13 O2 Sat by Pulse Oximetry 93 L 08/24/23 14:13 Height 5 ft 2 in 08/24/23 14:13 Weight 108 lb 6.4 oz 08/24/23 14:13 Telemetry Heart Rate 79 06/22/18 07:00 Telemetry SPO2 97 06/17/18 19:00 Appearance: Positive No Apparent Distress and Alert and Oriented x3 Skin: Positive Josephine, Warm and Good Turgor; Negative Rashes HEENT: Positive Normocephalic, Atraumatic and Oral Mucous Moist Neck: Positive Supple and Midline Trachea Chest/Lungs: Positive Symmetrical With Equal Breath Sounds and Wheezes (addi exp and insp) Heart: Positive Irregular Rhythm GI/: Positive Soft, Nontender, Bowel Sounds Normal and No Distention Extremities: Negative Edema Neurological: Positive Cranial Nerves Intact, Alert, Oriented and Other (+generalized weakness ) Psychiatric: Positive Oriented x4, Appropriate Mood and Appropriate Affect Labs This Visit Labs This Visit: Labs This Visit 08/24/23 08/24/23 08/24/23 14:25 14:28 14:34 WBC 17.86 H RBC 4.12 L Hgb 13.0 Hct 38.4 MCV 93.2 MCH 31.6 H MCHC 33.9 RDW Coeff of Hemant 12.4 Plt Count 287 Immature Gran % (Auto) 0.5 Neut % (Auto) 81.4 H Lymph % (Auto) 11.0 [place] % (Auto) 6.4 Eos % (Auto) 0.4 Baso % (Auto) 0.3 Neut # (Auto) 14.5 H Lymph # (Auto) 2.0 [place] # (Auto) 1.2 Eos # (Auto) 0.1 Baso # (Auto) 0.1 Immature Gran # (Auto) 0.1 Sodium 125.4 L Potassium 3.90 Chloride 90.1 L Carbon Dioxide 25.7 Anion Gap 13.50 BUN 17.7 H Creatinine 0.64 Estimated GFR (MDRD) 89.00 BUN/Creatinine Ratio 27.65 Glucose 110.0 H Lactic Acid 1.28 Calcium 9.48 Total Bilirubin 1.08 AST 27.6 ALT 28.8 Alkaline Phosphatase 125.9 Troponin I 0.018 NT-Pro-B Natriuret Pep 1900 H Total Protein 7.94 Albumin 4.46 Globulin 3.48 Albumin/Globulin Ratio 1.28 Influ A Molecular Assay Negative by naat Influ B Molecular Assay Negative by naat RSV Antigen Negative by naat SARS CoV-2 RNA Rapid LATASHA Negative Imaging Imaging: EXAM: CHEST, TWO VIEWS HISTORY: Cough. COMPARISON: Chest radiograph D 04/2019. FINDINGS: Cardiac silhouette is within normal limits. Tortuosity of the descending thoracic aorta with vascular calcifications. Hyperinflated lungs/emphysematous changes. Mild by apical scarring is unchanged. Peribronchial thickening and suspected bronchitis in the infrahilar regions bilaterally. No pleural effusion or pneumothorax. Surgical clips at the midline in the upper abdomen. Diffuse demineralization. Degenerative changes of the thoracic spine. No focal airspace consolidation. Degenerative changes of the shoulders. IMPRESSION: Chronic obstructive pulmonary disease/emphysema. Stable biapical scarring. Mild bronchial wall thickening of the infrahilar region suggesting bronchitis. No focal airspace consolidation. Additional chronic findings as detailed above. Review Statement Review Statement: I have independently reviewed and interpreted the labs/EKGs/imaging that were ordered by the ER provider. I have reviewed all outside records that are available currently in our EMR including imaging/notes/labs from previous visits. Plan Plan: 1. Acute symptomatic hyponatremia - No offending medications noted. Urine/serum osmol, urine sodium ordered. Start salt tabs qid. Pt appears euvolemic. Received lasix 20 in ER. 2. Acute COPD exacerbation - Start doxy, solumedrol 40 q8hrs, duonebs, rt consult, O2 if needed. 3. Weakness - Pt/ot 4. A fib, paroxysmal - Cont home meds. Pt states she takes a blood thinner, only see ASA on her list. Will confirm meds. Consider repeat echo tomorrow. BNP elevated. 5. Hypertension - Cont home meds 6. Hyperlipidemia - Cont home meds 7. Restless leg syndrome - Cont home meds DVT Prophylaxis: Ambulation Time Spent: Greater than 80 minutes spent with patient, 50% of the time spent with this patient was devoted to counseling and coordination of care. [facility] Plannin minutes spent discussing advance care planning. FULL CODE Admit to: Inpatient Discussed Plan of Care with Dr. Hans Cruz. Medications Medication Orders: Medications Ordered Category Date Time Status 0.9 % Sodium Chloride [Saline Flush] Meds 08/24/23 14:12 Active 1 syr IVF PRN PRN
[2023-08-24] MEDS ORDERED: ZOFRAN 4 MG/2 ML IVP PRN (15:40)
[2023-08-24] MEDS ORDERED: TYLENOL PO PRN (15:40)
[2023-08-24 16:14] VITALS: BMI 19.5
[2023-08-24 16:14] LABS: BILIRUBIN,URINE Negative (NEGATIVE); CLARITY,URINE Clear (CLEAR); COLOR,URINE Yellow (YELLOW); GLUCOSE, URINE (UA) Negative (NEGATIVE); KETONES,URINE Trace (NEGATIVE); LEUKOCYTE ESTERASE ,URINE Trace (NEGATIVE); NITRITE,URINE Negative (NEGATIVE); PROTEIN,URINE 1+ (NEGATIVE); URINE, BLOOD Negative (NEGATIVE); UROBILINOGEN,URINE 0.2 (0.2)
[2023-08-24] MEDS: SODIUM CHLORIDE PO SCH ×2 (16:16→20:45)
[2023-08-24] MEDS: DOXY-100 100 MG in SODIUM CHLORIDE 100ML 100 ML IV SCH ×2 (16:16→20:44)
[2023-08-24 16:20] LABS: URINE WBC, MICROSCOPIC 0-2 (0-2)
[2023-08-24] MEDS: DUONEB NEB SCH ×2 (17:54→23:12)
[2023-08-24] MEDS ORDERED: CARDIZEM PO SCH (20:30)
[2023-08-24] MEDS: SYMBICORT 160-4.5 MCG INHALER IH PRN (20:45)
[2023-08-24] MEDS: SOLU-MEDROL 40 MG IVP SCH (20:45)
[2023-08-24] MEDS: FLEXERIL PO PRN ×2 (20:45→21:36)
[2023-08-24] MEDS: COZAAR PO SCH (20:45)
[2023-08-24] MEDS: ATIVAN PO PRN (20:45)
[2023-08-24] MEDS: NORCO 7.5-325 PO PRN (22:31)
[2023-08-25] MEDS: DUONEB NEB SCH (04:59)
[2023-08-25] MEDS: SOLU-MEDROL 40 MG IVP SCH ×3 (05:15→20:08)
[2023-08-25 05:36] LABS: BASOPHILS % (AUTO) 0.1 % (0.0-3.0); HEMATOCRIT 36.1 % (37.0-47.0); HEMOGLOBIN 12.5 g/dl (12.0-16.0); IMMATURE GRANULOCYTE # (AUTO) 0.1 (0.0-1.0); IMMATURE GRANULOCYTE % (AUTO) 0.5 % (0.0-5.0); LYMPHOCYTES # (AUTO) 0.6 K/uL (0.60-3.4); LYMPHOCYTES % (AUTO) 4.6 (10.0-50.0); MEAN CORPUSCULAR HEMOGLOBIN 31.9 pg (27.0-31.0); MEAN CORPUSCULAR HGB CONC 34.6 (31.8-35.4); MEAN CORPUSCULAR VOLUME 92.1 fl (81.0-99.0); MONOCYTES # (AUTO) 0.2 K/uL (0.4-2.0); MONOCYTES % (AUTO) 1.7 (0-10); NEUTROPHILS # (AUTO) 11.9 K/ul (2.0-6.9); NEUTROPHILS % (AUTO) 93.1 % (42.2-75.2); PLATELET COUNT 332 10^3/uL (140-440); RDW COEFFICIENT OF VARIATION 12.6 % (11.6-14.8); RED BLOOD COUNT 3.92 10^6/ul (4.20-5.40); WHITE BLOOD COUNT 12.82 K/ul (4.6-10.2)
[2023-08-25 05:47] LABS: ALBUMIN 3.85 g/dL (3.5-5.0); ALKALINE PHOSPHATASE 108.6 U/L (53-141); ASPARTATE AMINO TRANSFERASE 23.1 U/L (14-36); BILIRUBIN,TOTAL 0.58 mg/dL (0.2-1.3); BLOOD UREA NITROGEN 22.8 mg/dL (7-17); CALCIUM 9.19 mg/dL (8.4-10.2); CREATININE 0.72 mg/dL (0.60-1.30); GLUCOSE 177.6 mg/dL (74-106); POTASSIUM 3.71 mmol/L (3.5-5.1); SODIUM 127.2 mmol/L (134.5-145); TOTAL PROTEIN 7.05 g/dL (6.3-8.2)
[2023-08-25] MEDS ORDERED: LOPRESSOR IVP ONE (06:11)
[2023-08-25] MEDS ORDERED: K-DUR PO ONE (08:08)
[2023-08-25] MEDS: CARDIZEM PO SCH ×2 (08:34→20:03)
[2023-08-25] MEDS: COZAAR PO SCH ×2 (08:35→20:03)
[2023-08-25] MEDS: PRAVACHOL PO SCH (08:36)
[2023-08-25] MEDS: REQUIP PO SCH (08:36)
[2023-08-25] MEDS: SODIUM CHLORIDE PO SCH ×4 (08:38→20:07)
[2023-08-25] MEDS: ZEBETA PO SCH (08:38)
[2023-08-25] MEDS: PROTONIX PO SCH (08:41)
[2023-08-25] MEDS: ASPIRIN CHEWABLE PO SCH (08:49)
[2023-08-25] MEDS: DOXY-100 100 MG in SODIUM CHLORIDE 100ML 100 ML IV SCH ×2 (09:13→20:03)
--- NOTE | 2023-08-25 09:40 | PCM.PROG ---
Date/Time Seen Date Seen by Provider: 08/25/23 Time Seen by Provider: 08:30 Provider [facility] Chief Complaint Chief Complaint: CHF; URI; HYPONATREMIA; HYPOXIA Subjective Subjective: Patient states she's feeling better today, was able to get some rest last night. Her O2 did drop into upper 80s while sleeping and 2L was applied. She has no complaints today. She has been a fib RVR with rates in 120s. Lopressor given this morning IV. She is asymptomatic. Objective Appearance: Positive Well-appearing, Well-nourished, No Apparent Distress and Alert and Oriented x3 Chest/Lungs: Positive Wheezes (addi, improving ) and Other (Wearing 2L nasal cannula ) Heart: Positive Irregular Rhythm and Tachycardia GI/: Positive Soft, Nontender, Bowel Sounds Normal and No Distention Neurological: Positive Cranial Nerves Intact, Alert, Oriented and Other (+generazlied weakness ); Negative Focal Deficit Vital Signs Vital Signs: Vital Signs: Last 24 Hours 08/24/23 14:13 08/24/23 14:13 08/24/23 15:56 Temperature 97.6 F 97.2 F L Temperature Source Infrared Oral Pulse Rate 77 72 Pulse Rate [Apical] Respiratory Rate 20 24 H Blood Pressure 85/61 L Blood Pressure Mean Blood Pressure Right Arm 157/63 Blood Pressure Location Blood Pressure Position Sitting O2 Sat by Pulse Oximetry 93 L 96 Oxygen Delivery Method Room Air Oxygen Flow Rate Height 5 ft 2 in 5 ft 2 in Weight 108 lb 6.4 oz 185 lb 107 lb Telemetry Type Telemetry Monitoring Telemetry Heart Rate Telemetry SPO2 EKG AK Interval EKG QRS Interval Telemetry Strip Reading 08/24/23 15:56 08/24/23 16:54 08/24/23 18:00 Temperature 97.4 F L Temperature Source Oral Pulse Rate 86 Pulse Rate [Apical] 84 Respiratory Rate 22 H 18 Blood Pressure 160/72 H Blood Pressure Mean 101 Blood Pressure Right Arm Blood Pressure Location Left Arm Blood Pressure Position O2 Sat by Pulse Oximetry 95 Oxygen Delivery Method Room Air Room Air Oxygen Flow Rate Height Weight Telemetry Type Remote Telemetry Telemetry Monitoring Started Telemetry Heart Rate 71 Telemetry SPO2 EKG AK Interval 0.16 EKG QRS Interval 0.05 L Telemetry Strip Reading SR 08/24/23 19:00 08/24/23 20:00 08/24/23 21:11 Temperature 97.8 F Temperature Source Temporal Artery Scan Pulse Rate 126 H Pulse Rate [Apical] Respiratory Rate 20 Blood Pressure 160/84 H Blood Pressure Mean 109 Blood Pressure Right Arm Blood Pressure Location Left Arm Blood Pressure Position O2 Sat by Pulse Oximetry 94 L Oxygen Delivery Method Room Air Room Air Oxygen Flow Rate Height Weight Telemetry Type Remote Telemetry Telemetry Monitoring Continues Telemetry Heart Rate 86 Telemetry SPO2 95 EKG AK Interval 0.18 EKG QRS Interval 0.05 L Telemetry Strip Reading SR WITH PVC 08/24/23 22:49 08/25/23 01:00 08/25/23 02:00 Temperature 98.2 F Temperature Source Temporal Artery Scan Pulse Rate 96 Pulse Rate [Apical] Respiratory Rate 18 Blood Pressure 117/71 Blood Pressure Mean 86 Blood Pressure Right Arm Blood Pressure Location Left Arm Blood Pressure Position O2 Sat by Pulse Oximetry 91 L 96 Oxygen Delivery Method Nasal Cannula Nasal Cannula Oxygen Flow Rate 2 2 Height Weight Telemetry Type Remote Telemetry Telemetry Monitoring Continues Telemetry Heart Rate 105 H Telemetry SPO2 97 EKG AK Interval EKG QRS Interval 0.06 Telemetry Strip Reading AFIB W/ RVR 08/25/23 05:07 08/25/23 07:00 08/25/23 08:00 Temperature 98.7 F Temperature Source Oral Pulse Rate 115 H Pulse Rate [Apical] Respiratory Rate 20 24 H Blood Pressure 95/62 Blood Pressure Mean 73 Blood Pressure Right Arm Blood Pressure Location Left Arm Blood Pressure Position O2 Sat by Pulse Oximetry 95 Oxygen Delivery Method Nasal Cannula Room Air Oxygen Flow Rate 2 Height Weight Telemetry Type Remote Telemetry Telemetry Monitoring Continues Telemetry Heart Rate 104 H Telemetry SPO2 94 EKG AK Interval EKG QRS Interval 0.08 Telemetry Strip Reading afib 08/25/23 09:23 Temperature 97.9 F Temperature Source Temporal Artery Scan Pulse Rate 110 H Pulse Rate [Apical] Respiratory Rate 16 Blood Pressure 139/58 L Blood Pressure Mean 85 Blood Pressure Right Arm Blood Pressure Location Left Arm Blood Pressure Position O2 Sat by Pulse Oximetry 96 Oxygen Delivery Method Room Air Oxygen Flow Rate Height Weight Telemetry Type Telemetry Monitoring Telemetry Heart Rate Telemetry SPO2 EKG AK Interval EKG QRS Interval Telemetry Strip Reading Lab Results Lab Results: Lab Results: Last 24 Hours 08/25/23 08/24/23 08/24/23 05:12 16:00 14:34 WBC 12.82 H D 17.86 H RBC 3.92 L 4.12 L Hgb 12.5 13.0 Hct 36.1 L 38.4 MCV 92.1 93.2 MCH 31.9 H 31.6 H MCHC 34.6 33.9 RDW Coeff of Hemant 12.6 12.4 Plt Count 332 287 Immature Gran % (Auto) 0.5 0.5 Neut % (Auto) 93.1 H 81.4 H Lymph % (Auto) 4.6 L 11.0 [place] % (Auto) 1.7 6.4 Eos % (Auto) 0.0 0.4 Baso % (Auto) 0.1 0.3 Neut # (Auto) 11.9 H 14.5 H Lymph # (Auto) 0.6 2.0 [place]manuel # (Auto) 0.2 L 1.2 Eos # (Auto) 0.0 0.1 Baso # (Auto) 0.0 0.1 Immature Gran # (Auto) 0.1 0.1 Sodium 127.2 L 125.4 L Potassium 3.71 3.90 Chloride 95.0 L 90.1 L Carbon Dioxide 21.0 L 25.7 Anion Gap 14.91 13.50 BUN 22.8 H 17.7 H Creatinine 0.72 0.64 Estimated GFR (MDRD) 78.00 89.00 BUN/Creatinine Ratio 31.66 27.65 Glucose 177.6 H D 110.0 H Lactic Acid 1.28 Calcium 9.19 9.48 Magnesium 2.14 Total Bilirubin 0.58 1.08 AST 23.1 27.6 ALT 24.0 28.8 Alkaline Phosphatase 108.6 125.9 Troponin I 0.018 NT-Pro-B Natriuret Pep 1900 H Total Protein 7.05 7.94 Albumin 3.85 4.46 Globulin 3.20 3.48 Albumin/Globulin Ratio 1.20 1.28 Procalcitonin 0.09 Urine Color Yellow Urine Clarity Clear Urine pH 6.0 Ur Specific [place] 1.020 Urine Protein 1+ H Urine Glucose (UA) Negative Urine Ketones Trace H Urine Blood Negative Urine Nitrite Negative Urine Bilirubin Negative Urine Urobilinogen 0.2 Ur Leukocyte Esterase Trace H Urine Microscopic WBC 0-2 Ur Squamous Epith Cells Not Reportable Influ A Molecular Assay Influ B Molecular Assay RSV Antigen SARS CoV-2 RNA Rapid LATASHA 08/24/23 08/24/23 14:28 14:25 WBC RBC Hgb Hct MCV MCH MCHC RDW Coeff of Hemant Plt Count Immature Gran % (Auto) Neut % (Auto) Lymph % (Auto) [place] % (Auto) Eos % (Auto) Baso % (Auto) Neut # (Auto) Lymph # (Auto) [place] # (Auto) Eos # (Auto) Baso # (Auto) Immature Gran # (Auto) Sodium Potassium Chloride Carbon Dioxide Anion Gap BUN Creatinine Estimated GFR (MDRD) BUN/Creatinine Ratio Glucose Lactic Acid Calcium Magnesium Total Bilirubin AST ALT Alkaline Phosphatase Troponin I NT-Pro-B Natriuret Pep Total Protein Albumin Globulin Albumin/Globulin Ratio Procalcitonin Urine Color Urine Clarity Urine pH Ur Specific [place] Urine Protein Urine Glucose (UA) Urine Ketones Urine Blood Urine Nitrite Urine Bilirubin Urine Urobilinogen Ur Leukocyte Esterase Urine Microscopic WBC Ur Squamous Epith Cells Influ A Molecular Assay Negative by naat Influ B Molecular Assay Negative by naat RSV Antigen Negative by naat SARS CoV-2 RNA Rapid LATASHA Negative Additional Comments Additional Comments: I have independently reviewed and interpreted the labs/EKGs/imaging ordered during this hospital stay. I have reviewed outside records that are available in our EMR that pertain to medical stay including imaging/notes/labs from previous visits. Active Medications Active Medications: Medications Generic Name Dose Route Start Last Admin Trade Name Freq PRN Reason Stop Dose Admin Acetaminophen 650 mg 08/24/23 15:40 Acetaminophen 325 Mg Tablet PO Q4H PRN Mild Pain Hydrocodone Bitart/Acetaminophen 1 tab 08/24/23 20:20 08/24/23 22:31 Hydrocodone Bit/Acetaminophen 7.5/325 Mg Tablet PO 1 tab QID PRN Administration MODERATE PAIN Aspirin 81 mg 08/25/23 09:00 08/25/23 08:49 Aspirin 81 Mg Tab.Chew PO 81 mg DAILYWM2 TATIANA Administration Bisoprolol Fumarate 10 mg 08/25/23 09:00 08/25/23 08:38 Bisoprolol Fumarate 5 Mg Tablet PO 10 mg DAILY TATIANA Administration Budesonide/Formoterol Fumarate 1 puff 08/24/23 20:20 08/24/23 20:45 Budesonide/Formoterol Fumarate 160/4.5 Mcg Inhaler IH 1 puff BID PRN Administration sob Cyclobenzaprine HCl 10 mg 08/24/23 20:20 08/24/23 21:36 Cyclobenzaprine Hcl 10 Mg Tablet PO 10 mg BID PRN Administration muscle pain Diltiazem HCl 60 mg 08/25/23 09:00 08/25/23 08:34 Diltiazem Hcl 60 Mg Tablet PO 60 mg Q12HR TATIANA Administration Doxycycline Hyclate 100 mg/ 100 mls @ 50 mls/hr 08/24/23 16:00 08/25/23 09:13 Sodium Chloride IV 08/27/23 15:59 50 mls/hr Q12HR TATIANA Administration Levalbuterol HCl 1.25 mg 08/25/23 12:00 Levalbuterol Hcl 1.25 Mg/3 Ml Vial.Neb NEB RTQ6H TATIANA Lorazepam 0.5 mg 08/24/23 20:20 08/24/23 20:45 Lorazepam 0.5 Mg Tablet PO 0.5 mg BEDTIME PRN Administration Insomnia Losartan Potassium 50 mg 08/24/23 21:00 08/25/23 08:35 Losartan Potassium 25 Mg Tablet PO 50 mg BID TATIANA Administration Methylprednisolone Sodium Succinate 40 mg 08/24/23 21:00 08/25/23 05:15 Methylprednisolone Sod Succ/Pf 40 Mg/Ml Vial IVP 40 mg Q8HR TATIANA Administration Ondansetron HCl 4 mg 08/24/23 15:40 Ondansetron Hcl/Pf 4 Mg/2 Ml Sdv IVP Q6H PRN Nausea / Vomiting Pantoprazole Sodium 40 mg 08/25/23 09:00 08/25/23 08:41 Pantoprazole Sodium 40 Mg Tablet. PO 40 mg QDAC2 TATIANA Administration Pravastatin Sodium 40 mg 08/25/23 09:00 08/25/23 08:36 Pravastatin Sodium 40 Mg Tablet PO 40 mg DAILY TATIANA Administration Ropinirole HCl 0.5 mg 08/25/23 09:00 08/25/23 08:36 Ropinirole Hcl 0.25 Mg Tablet PO 0.5 mg DAILY TATIANA Administration Sodium Chloride 1 syr 08/24/23 14:12 08/25/23 06:24 0.9% Sodium Chloride 10 Ml Disp.Syrin IVF 1 syr PRN PRN Administration To flush IV Sodium Chloride 1 gm 08/24/23 17:00 08/25/23 08:38 Sodium Chloride 1 Gm Tablet PO 1 gm QID TATIANA Administration Plan Plan: 1. Acute symptomatic hyponatremia - Improving. Cont salt tabs. No offending medications noted. Urine/serum osmol, urine sodium ordered. Pt appears euvolemic. Received lasix 20 in ER. 2. Acute COPD exacerbation - Continue doxy, solumedrol 40 q8hrs, nebs, rt consult, O2 if needed. 3. Weakness - Pt/ot 4. A fib RVR - Cont home meds. Pt states she takes a blood thinner, only see ASA on her list. Echo today. BNP elevated. Lopressor 5 mg IVP given this morning and then her morning cardizem. If no improvement, will give IV cardizem. Changed duonebs to xopenex as well. K+ given with goal of 4, Mag >2. 5. Hypertension - Cont home meds 6. Hyperlipidemia - Cont home meds 7. Restless leg syndrome - Cont home meds DVT: Cuca Spoke with patient regarding her a fib and risk of stroke. She takes only ASA at this time. Discussed pros and cons of blood thinners. She is unaware of any contraindications and is agreeable to start one but prefers discussing with Dr. Jass Cruz. Discussed I'd likely see him tomorrow and I will run it by him as well. Pt agreeable to prophylactic lovenox at least today. Review Statement Review Statement: I have personally discussed and reviewed the patient's visit/currently labs/imaging/decision making with Dr. Cruz, my supervising attending. Greater that 50 minutes spent with patient, 50% of the time spent with this patient was devoted to counseling and coordination of care.
[2023-08-25] MEDS: XOPENEX 1.25 MG NEB SCH ×3 (11:14→22:59)
[2023-08-25] MEDS: LOVENOX SUBCUT SCH (15:44)
[2023-08-25] MEDS: SYMBICORT 160-4.5 MCG INHALER IH PRN (20:03)
[2023-08-25] MEDS: ATIVAN PO PRN (20:04)
[2023-08-25] MEDS: NORCO 7.5-325 PO PRN (20:07)
[2023-08-25] MEDS: FLEXERIL PO PRN (21:22)
[2023-08-26] MEDS: XOPENEX 1.25 MG NEB SCH ×4 (04:54→23:50)
[2023-08-26] MEDS: PROTONIX PO SCH (05:02)
[2023-08-26] MEDS: SOLU-MEDROL 40 MG IVP SCH ×3 (05:03→21:42)
[2023-08-26 05:55] LABS: BASOPHILS % (AUTO) 0.1 % (0.0-3.0); HEMATOCRIT 34.1 % (37.0-47.0); HEMOGLOBIN 11.6 g/dl (12.0-16.0); IMMATURE GRANULOCYTE # (AUTO) 0.2 (0.0-1.0); IMMATURE GRANULOCYTE % (AUTO) 0.8 % (0.0-5.0); LYMPHOCYTES # (AUTO) 0.8 K/uL (0.60-3.4); LYMPHOCYTES % (AUTO) 4.2 (10.0-50.0); MEAN CORPUSCULAR HEMOGLOBIN 31.6 pg (27.0-31.0); MEAN CORPUSCULAR VOLUME 92.9 fl (81.0-99.0); MONOCYTES # (AUTO) 0.6 K/uL (0.4-2.0); NEUTROPHILS # (AUTO) 17.9 K/ul (2.0-6.9); NEUTROPHILS % (AUTO) 91.9 % (42.2-75.2); PLATELET COUNT 371 10^3/uL (140-440); RDW COEFFICIENT OF VARIATION 12.8 % (11.6-14.8); RED BLOOD COUNT 3.67 10^6/ul (4.20-5.40); WHITE BLOOD COUNT 19.44 K/ul (4.6-10.2)
[2023-08-26 06:04] LABS: ALBUMIN 3.88 g/dL (3.5-5.0); ALKALINE PHOSPHATASE 107.5 U/L (53-141); ASPARTATE AMINO TRANSFERASE 38.4 U/L (14-36); BILIRUBIN,TOTAL 0.52 mg/dL (0.2-1.3); BLOOD UREA NITROGEN 29.3 mg/dL (7-17); CALCIUM 9.52 mg/dL (8.4-10.2); CARBON DIOXIDE 21.6 mmol/L (22-30.0); CHLORIDE 99.5 mmol/L (98-107); CREATININE 0.77 mg/dL (0.60-1.30); GLUCOSE 169.1 mg/dL (74-106); POTASSIUM 3.45 mmol/L (3.5-5.1); SODIUM 130.8 mmol/L (134.5-145); TOTAL PROTEIN 7.13 g/dL (6.3-8.2)
[2023-08-26 07:19] LABS: OSMOLALITY,URINE 454 mOsmol/kg (.)
[2023-08-26] MEDS: REQUIP PO SCH (08:23)
[2023-08-26] MEDS: ASPIRIN CHEWABLE PO SCH (08:23)
[2023-08-26] MEDS: SODIUM CHLORIDE PO SCH ×4 (08:23→20:05)
[2023-08-26] MEDS: PRAVACHOL PO SCH (08:23)
[2023-08-26] MEDS: COZAAR PO SCH ×2 (08:24→20:05)
[2023-08-26] MEDS: CARDIZEM PO SCH ×2 (08:24→20:05)
[2023-08-26] MEDS: LOVENOX SUBCUT SCH (08:24)
[2023-08-26] MEDS: ZEBETA PO SCH (08:24)
[2023-08-26] MEDS ORDERED: K-DUR PO ONE (08:24)
[2023-08-26] MEDS: DOXY-100 100 MG in SODIUM CHLORIDE 100ML 100 ML IV SCH ×2 (08:27→20:06)
[2023-08-26] MEDS ORDERED: ATIVAN PO ONE (09:05)
--- NOTE | 2023-08-26 09:41 | PCM.PROG ---
Date/Time Seen Date Seen by Provider: 08/26/23 Time Seen by Provider: 08:30 Provider Provider: JOHN NEFF PA-C, [facility] Chief Complaint Chief Complaint: CHF; URI; HYPONATREMIA; HYPOXIA Subjective Subjective: Patient feels worse today. Has been coughing terribly. Had a lot of anxiety this morning. States this always happens to her in the hospital. She feels like her congestion "is breaking up" and she's now getting sputum up. She feels very weak today however. Still requiring oxygen. Objective Appearance: Positive Well-appearing, Well-nourished, No Apparent Distress and Alert and Oriented x3 Chest/Lungs: Positive Wheezes (addi, improving ) and Other (Wearing 2L nasal cannula ) Heart: Positive Irregular Rhythm GI/: Positive Soft, Nontender, Bowel Sounds Normal and No Distention Neurological: Positive Cranial Nerves Intact, Alert, Oriented and Other (+generazlied weakness ); Negative Focal Deficit Vital Signs Vital Signs: Vital Signs: Last 24 Hours 08/25/23 10:00 08/25/23 13:00 08/25/23 14:00 Temperature 97.3 F L Temperature Source Temporal Artery Scan Pulse Rate 85 Respiratory Rate 18 Blood Pressure 142/79 H Blood Pressure Mean 100 Blood Pressure Location Left Arm Blood Pressure Position Supine O2 Sat by Pulse Oximetry 96 Oxygen Delivery Method Nasal Cannula Nasal Cannula Oxygen Flow Rate 2 1 Telemetry Type Remote Telemetry Telemetry Monitoring Continues Telemetry Heart Rate 82 Telemetry SPO2 95 EKG HI Interval 0.15 EKG QRS Interval 0.07 Telemetry Strip Reading SR ( has been in and out of A -Fib) 08/25/23 14:00 08/25/23 17:37 08/25/23 18:59 Temperature 97.6 F Temperature Source Temporal Artery Scan Pulse Rate 94 Respiratory Rate 18 Blood Pressure 161/74 H Blood Pressure Mean 103 Blood Pressure Location Left Arm Blood Pressure Position Supine O2 Sat by Pulse Oximetry 93 L Oxygen Delivery Method Nasal Cannula Nasal Cannula Oxygen Flow Rate 1 1 Telemetry Type Remote Telemetry Telemetry Monitoring Continues Telemetry Heart Rate 96 Telemetry SPO2 95 EKG HI Interval 0.15 EKG QRS Interval 0.05 L Telemetry Strip Reading SR 08/25/23 19:05 08/25/23 20:00 08/25/23 21:10 Temperature 97.8 F Temperature Source Temporal Artery Scan Pulse Rate 95 Respiratory Rate 20 16 Blood Pressure 166/81 H Blood Pressure Mean 109 Blood Pressure Location Left Arm Blood Pressure Position Supine O2 Sat by Pulse Oximetry 96 96 Oxygen Delivery Method Nasal Cannula Nasal Cannula Nasal Cannula Oxygen Flow Rate 1 1 1 Telemetry Type Telemetry Monitoring Telemetry Heart Rate Telemetry SPO2 EKG HI Interval EKG QRS Interval Telemetry Strip Reading 08/26/23 01:00 08/26/23 05:18 08/26/23 06:26 Temperature 97.9 F Temperature Source Oral Pulse Rate Respiratory Rate 20 Blood Pressure 149/72 H Blood Pressure Mean 97 Blood Pressure Location Left Arm Blood Pressure Position Supine O2 Sat by Pulse Oximetry 93 L 91 L Oxygen Delivery Method Nasal Cannula Nasal Cannula Oxygen Flow Rate 1 2 Telemetry Type Remote Telemetry Telemetry Monitoring Continues Telemetry Heart Rate 80 Telemetry SPO2 92 L EKG HI Interval 0.18 EKG QRS Interval 0.06 Telemetry Strip Reading SR Lab Results Lab Results: Lab Results: Last 24 Hours 08/26/23 08/24/23 08/24/23 05:26 16:00 15:20 WBC 19.44 H D RBC 3.67 L Hgb 11.6 L Hct 34.1 L MCV 92.9 MCH 31.6 H MCHC 34.0 RDW Coeff of Hemant 12.8 Plt Count 371 Immature Gran % (Auto) 0.8 Neut % (Auto) 91.9 H Lymph % (Auto) 4.2 L Dickenson % (Auto) 3.0 Eos % (Auto) 0.0 Baso % (Auto) 0.1 Neut # (Auto) 17.9 H Lymph # (Auto) 0.8 Dickenson # (Auto) 0.6 Eos # (Auto) 0.0 Baso # (Auto) 0.0 Immature Gran # (Auto) 0.2 Sodium 130.8 L Potassium 3.45 L Chloride 99.5 Carbon Dioxide 21.6 L Anion Gap 13.15 BUN 29.3 H Creatinine 0.77 Estimated GFR (MDRD) 72.00 BUN/Creatinine Ratio 38.05 Glucose 169.1 H Calcium 9.52 Total Bilirubin 0.52 AST 38.4 H ALT 28.0 Alkaline Phosphatase 107.5 Total Protein 7.13 Albumin 3.88 Globulin 3.25 Albumin/Globulin Ratio 1.19 Urine Osmolality 454 Ur Random Sodium 51 Additional Comments Additional Comments: I have independently reviewed and interpreted the labs/EKGs/imaging ordered during this hospital stay. I have reviewed outside records that are available in our EMR that pertain to medical stay including imaging/notes/labs from previous visits. Active Medications Active Medications: Medications Generic Name Dose Route Start Last Admin Trade Name Freq PRN Reason Stop Dose Admin Acetaminophen 650 mg 08/24/23 15:40 Acetaminophen 325 Mg Tablet PO Q4H PRN Mild Pain Hydrocodone Bitart/Acetaminophen 1 tab 08/24/23 20:20 08/25/23 20:07 Hydrocodone Bit/Acetaminophen 7.5/325 Mg Tablet PO 1 tab QID PRN Administration MODERATE PAIN Aspirin 81 mg 08/25/23 09:00 08/26/23 08:23 Aspirin 81 Mg Tab.Chew PO 81 mg DAILYWM2 TATIANA Administration Bisoprolol Fumarate 10 mg 08/25/23 09:00 08/26/23 08:24 Bisoprolol Fumarate 5 Mg Tablet PO 10 mg DAILY TATIANA Administration Budesonide/Formoterol Fumarate 1 puff 08/24/23 20:20 08/25/23 20:03 Budesonide/Formoterol Fumarate 160/4.5 Mcg Inhaler IH 1 puff BID PRN Administration sob Cyclobenzaprine HCl 10 mg 08/24/23 20:20 08/25/23 21:22 Cyclobenzaprine Hcl 10 Mg Tablet PO 10 mg BID PRN Administration muscle pain Diltiazem HCl 60 mg 08/25/23 09:00 08/26/23 08:24 Diltiazem Hcl 60 Mg Tablet PO 60 mg Q12HR TATIANA Administration Enoxaparin Sodium 40 mg 08/25/23 15:15 08/26/23 08:24 Enoxaparin Sodium 40 Mg/0.4 Ml Syr SUBCUT 40 mg DAILY TATIANA Administration Guaifenesin 600 mg 08/26/23 10:00 Guaifenesin 600 Mg Tablet.Er PO Q12HR TATIANA Guaifenesin/Dextromethorphan 10 ml 08/26/23 09:02 Guaifenesin/Dextromethorphan 200/20 Mg/10 Ml Cup PO Q6HR PRN Cough Doxycycline Hyclate 100 mg/ 100 mls @ 50 mls/hr 08/24/23 16:00 08/26/23 08:27 Sodium Chloride IV 08/27/23 15:59 50 mls/hr Q12HR TATIANA Administration Levalbuterol HCl 1.25 mg 08/25/23 12:00 08/26/23 04:54 Levalbuterol Hcl 1.25 Mg/3 Ml Vial.Neb NEB 1.25 mg RTQ6H TATIANA Administration Lorazepam 0.5 mg 08/24/23 20:20 08/25/23 20:04 Lorazepam 0.5 Mg Tablet PO 0.5 mg BEDTIME PRN Administration Insomnia Losartan Potassium 50 mg 08/24/23 21:00 08/26/23 08:24 Losartan Potassium 25 Mg Tablet PO 50 mg BID TATIANA Administration Methylprednisolone Sodium Succinate 40 mg 08/24/23 21:00 08/26/23 05:03 Methylprednisolone Sod Succ/Pf 40 Mg/Ml Vial IVP 40 mg Q8HR TATIANA Administration Ondansetron HCl 4 mg 08/24/23 15:40 Ondansetron Hcl/Pf 4 Mg/2 Ml Sdv IVP Q6H PRN Nausea / Vomiting Pantoprazole Sodium 40 mg 08/25/23 09:00 08/26/23 05:02 Pantoprazole Sodium 40 Mg Tablet.Dr PO 40 mg QDAC2 TATIANA Administration Pravastatin Sodium 40 mg 08/25/23 09:00 08/26/23 08:23 Pravastatin Sodium 40 Mg Tablet PO 40 mg DAILY TATIANA Administration Ropinirole HCl 0.5 mg 08/25/23 09:00 08/26/23 08:23 Ropinirole Hcl 0.25 Mg Tablet PO 0.5 mg DAILY TATIANA Administration Sodium Chloride 1 syr 08/24/23 14:12 08/26/23 05:02 0.9% Sodium Chloride 10 Ml Disp.Syrin IVF 1 syr PRN PRN Administration To flush IV Sodium Chloride 1 gm 08/24/23 17:00 08/26/23 08:23 Sodium Chloride 1 Gm Tablet PO 1 gm QID TATIANA Administration Plan Plan: 1. Acute symptomatic hyponatremia - Improving. Cont salt tabs. No offending medications noted. Urine/serum osmol, urine sodium ordered. Pt appears euvolemic. Received lasix 20 in ER. 2. Acute hypoxic respiratory faiulre in setting of COPD exacerbation - Cont doxy, cont solumedrol, nebs, rt consult, Cont O2 to keep >92% 3. Acute COPD exacerbation - Plan as above. Robitussin and mucinex ordered. 4. Weakness - Pt/ot 5. A fib RVR - Resolved. Cont home meds. Pt states she takes a blood thinner, only see ASA on her list. Plan to start Eliquis today after discussing with her PCP, per patient request. 2.5 bid based on age/weight. Stop asa. Echo with normal EF. BNP elevated. Changed duonebs to xopenex as well. K+ given with goal of 4, Mag >2. 6. Hypertension - Cont home meds 7. Hyperlipidemia - Cont home meds 8. Restless leg syndrome - Cont home meds DVT: Eliquis Dispo: Discharge in next 1-2 days Of note, patient had recent PET scan showing possible area in lung and liver. Has recent hx of melanoma. Pt states she saw oncology on Tuesday of this week and she was told neither area is of concern. Review Statement Review Statement: I have personally discussed and reviewed the patient's visit/currently labs/imaging/decision making with Dr. Cruz, my supervising attending. Greater that 50 minutes spent with patient, 50% of the time spent with this patient was devoted to counseling and coordination of care.
[2023-08-26] MEDS: MUCINEX PO SCH ×2 (09:48→20:05)
[2023-08-26] MEDS: ROBITUSSIN DM SYRUP PO PRN ×2 (09:49→16:26)
[2023-08-26] MEDS: NORCO 7.5-325 PO PRN ×2 (11:54→20:48)
--- NOTE | 2023-08-26 14:03 | ECHO2D ---
Date of Exam: 08/25/2023 Ordering Physician: DR. COLE / JULIANE BAUMAN- HOSPITALIST Room #: 114 Reason for Echo: ATRIAL FIBRILLATION, SHORTNESS OF BREATH, SYSTOLIC MURMUR Murmurs: SYSTOLIC M-Mode Normal Adult Results LV Dimensions Normal Adult Results AoV Opening excursions >1.6 1.2 LVEDD-base- 3.5-5.8 3.6 Ao root dimensions 2.0-3.7 2.8 LVESD-base- 3.1-4.6 L. Atrium dimensions 1.9-3.8 3.5 Post. Wall thickness 0.8-1.1 1.0 IV septum (thickness) 0.7-1.2 1.2 Post. Wall excursion 0.72-1.3 NORMAL Septal motion NORMAL Systolic motion R. Ventricular cavity 1.5-2.0 3.0 LVEF 60% >60% Paradoxical septal wall motion NORMAL 2-D : ENLARGED RIGHT VENTRICLE CAVITY, CALCIFIC MITRAL VALVE ANNULUS, CALCIFIC AORTIC VALVE LEAFLETS, NORMAL LEFT VENTRICLE SIZE AND LEFT VENTRICULAR CONTRACTILITY, NO EFFUSION, NO THROMBUS, PLANIMETRY = 1.2cm2 AREA OF AORTIC VALVE M-MODE: MV: CALCIFIC MITRAL VALVE ANNULUS AV: CALCIFIC AORTIC VALVE WITH MILD STENOSIS TV: NORMAL PV: NORMAL CHAMBER SIZE: ENLARGED RIGHT VENTRICLE CAVITY WALL MOTION: NORMAL PERICARDIUM: NORMAL INTERPRETATION: 1. CALCIFIC MITRAL VALVE ANNULUS. 2. MILD TO MODERATE AORTIC STENOSIS. 3. NORMAL LEFT VENTRICLE SIZE AND LEFT VENTRICULAR CONTRACTILITY. 4. NORMAL LEFT ATRIAL SIZE. 5. ENLARGED RIGHT VENTRICLE CAVITY. MTDD
--- NOTE | 2023-08-26 16:18 | RS.PTINEVL ---
Subjective Patient information Date of Evaluation: 08/26/23 Date of Arrival on Unit: 08/24/23 Admitted From:: Home Diagnosis: acute hyponatremia, acute hypoxic resp failure, COPD exac, weakness. Usual Living Arrangement: With Spouse Living Arrangement Comments: Lives together with spouse Home Environment: House, Stairs (few) and Rail Medical History: Hypertension and CHF Medical History Comments:: GERD, RLS, Afib w RVR, PAD LATEX ALLERGY?: No Medications: see chart Subjective Information/ Patient Comments:: pt states that she is coughing more today. States she is tired from all the coughing. Level of function Prior to this admission, the patient could do the following:: Independent Selfcare, Independent ADL's and Independent Ambulation Current Level of Function: Partially Dependent Current Equipment Used at Home: Raised toilet seat, Interventions Objective Patient Orientation: Person, Place and Time Current Interventions: IV's, Oxygen (2 liters) and Telemetry Observation: forward head, rounded shlds. Range of Motion ROM Right Upper Extremity AROM: WFL's Left Upper Extremity AROM: WFL's Right Lower Extremity AROM: WFL's Left Lower Extremity AROM: WFL's Muscle Strength Muscle Strength Right Upper Extremity: Mild Weakness (grossly 4/5) Left Upper Extremity: Mild Weakness (grossly 4/5) Right Lower Extremity: Mild Weakness (hip flex 4-/5, knee flex/ext 4/5, ankle DF/PF 4/5) Left Lower Extremity: Mild Weakness (hip flex 4-/5, knee flex/ext 4/5, ankle DF/PF 4/5) Sensation Sensation Right Upper Extremity: Intact/Normal Left Upper Extremity: Intact/Normal Right Lower Extremity: Intact/Normal Left Lower Extremity: Intact/Normal Palpation Palpation Findings: None/Normal Balance Sitting Balance and Reactions Static Sitting Balance: Good Dynamic Sitting Balance: Fair (fair+) Standing Balance and Reactions Static Standing Balance: Poor Dynamic Standing Balance: Poor Functional Mobility Bed Mobility Rolling R/L: Supervision Scooting: Supervision Supine to Sit: CGA Sit to Supine: CGA Transfers Sit to Stand: CGA Stand to Sit: CGA Safety Awareness Safety Awareness: Fair ROBE INDEX SCORE: n/a Ambulation Ambulation Assistive Device Used: Rolling Walker Orthotic/Prosthetic Device: No Distance: 100ft Assistance needed with Ambulation: CGA and 1 person assist Gait Deviations: Forward posture, Short stride and Deviates from path (occasionally) Factors Affecting Ambulation: Decreased Balance, Breathing/O2 Saturation, Weakness, Decreased Safety and Limited Endurance Treatment time Time with patient Length of Evaluation: 19 Total treatment time: 24 Patient Education Education Patient Education: Home Exercise Program and Education of Plan of Care Teaching Recipient: Patient Teaching Methods: Discussion (regarding POC and home safety) Assessment Assessment Problem List:: Decreased level of function, Requires training/education, Decreased safety/Risk of falls and Weakness Rehab Potential: Good Further Therapy Indicated?: Yes Candidate for Swing Bed for Therapy Services?: Feel pt may not be a candidate for swing bed due to higher level of function. Evaluation Complexity: HISTORY: Medium, EXAM OF BODY SYSTEMS: Medium, CLINICAL PRESENTATION: Medium and CLINICAL DECISION MAKING: Medium Patient's Goal(s): Get stronger and be able to go home. Short Term Goals GOAL #1: pt independent rolling and scooting up in bed. Goal to be met by: 08/29/23 GOAL #2: Transfer sup to/from sit SBA Goal to be met by: 08/29/23 GOAL #3: Transfer sit to/from stand SBA Goal to be met by: 08/29/23 GOAL #4: pt amb with rwx 140ft with SBA no LOB Goal to be met by: 08/29/23 GOAL #5: Improve BLE strength 4+/5 Goal to be met by: 08/29/23 Nanny Babysitter Goals GOAL #1: pt transfer sup to/from sit to/from stand independently. Goal to be met by: 08/31/23 GOAL #2: pt amb with rwx functional household distances with SBA to independent. Goal to be met by: 08/31/23 GOAL #3: Ascend/descend 2-3 steps with HR with SBA Goal to be met by: 08/31/23 Plan Plan of Care: Therapeutic EX, Neuromuscular Re-Educ and Therapeutic Activity Other:: gait training Frequency of Treatment: 1-2 X day, as tolerated Duration of Treatment: 5 days Anticipated Discharge Destination: Home Treatment Diagnosis (ICD 10 Codes): impaired balance R 26.81 gait difficulty R 26.2 weakness M62.81 Has the Physician been added for Co-signature?: Yes
[2023-08-26] MEDS: ELIQUIS PO SCH (20:05)
[2023-08-26 20:13] LABS: SERUM OSMOLALITY 425 mOsmol/kg (280-301)
--- NOTE | 2023-08-26 22:11 | RS.OTINEVL ---
Subjective Patient information Date of Evaluation: 08/26/23 Date of Arrival on Unit: 08/24/23 Admitted From:: Home Diagnosis: CHF, URI, Hyponatremia, hypoxia PRECAUTIONS: Unsteady walking Usual Living Arrangement: With Spouse Living Arrangement Comments: Lives together with spouse Medical History: Hypertension and CHF Medical History Comments:: RLS, hyperlipidemia, anxiety, 2 Liters of O2. Subjective Information/ Patient Comments:: "Coughing makes me weak." Level of function Prior to this admission, the patient could do the following:: Independent Selfcare, Independent ADL's, Independent Ambulation, Perform Rf Technician/Cooking, Drive and Participated in Social Activities Outside home Abilities prior to this admission: Pt was Independent with ADLS. Current Level of Function: Partially Dependent Current Equipment Used at Home: Raised toilet seat, Interventions Objective Patient Orientation: Person and Situation Current Interventions: IV's, Oxygen and Telemetry Observation: Pt appears weak and coughs alot. Pt is coughing up colored mucous. Pt has full AROM of BUE. Pt coughs when she completes full AROM. Interventions ROM Right Upper Extremity AROM: WFL's Left Upper Extremity AROM: WFL's Strength Right Upper Extremity: Mild Weakness Left Upper Extremity: Mild Weakness Comments:: Pt appears weak from her illness. Sensation Right Upper Extremity: Intact/Normal Left Upper Extremity: Intact/Normal Balance Sitting Balance Static Sitting Balance: Good Dynamic Sitting Balance: Good Standing Balance Static Standing Balance: Poor Dynamic Standing Balance: Poor ADL Skills Self Feeding Self Feeding: Independent Grooming Grooming: Min Assist Bathing Bathing UE: Independent Bathing LE: CGA Bathing Set-up: Shower Dressing Dressing UE: Independent Dressing LE: CGA Toilet Management Toilet Hygiene: Independent Toilet Clothing Management: CGA Comments Comments:: Pt requires someone to walk with her due to her unsteadiness. Functional Mobility Bed Mobility Rolling R/L: Independent Scooting: Independent Transfers Sit to Stand: CGA Stand to Sit: CGA Stand Pivot Transfers: Min Assist Comments:: Pt is unsteady walking. Ambulation Weight Bearing Status: FWB Assistive Device Used: Rolling Walker Assistance needed with Ambulation: CGA Safety Awareness Safety Awareness: Fair ROBE INDEX SCORE: . Additional Treatment Performed Time with patient Length of Evaluation: 16 Total treatment time: 20 Activities Do you enjoy playing games?: Yes Would you be interested in leaving your room for activities?: Yes Would you enjoy group activities?: Yes Do you have difficulty with your vision?: Yes What types of things do you enjoy doing? Any Hobbies?: TV, Patient Interests:: Watching Television and Visiting/Socializing Patient Education Patient Education: Education of diagnosis and Education of Plan of Care Teaching Recipient: Patient Teaching Methods: Discussion and Demonstration Comments: Teaching patient to complete shoulder flexion and breathe in and then breathe out and cough. Assessment Problem List:: Decreased level of function, Requires training/education, Decreased safety/Risk of falls and Weakness Rehab Potential: Good Further Therapy Indicated?: Yes Evaluation Complexity: HISTORY: Medium, EXAM OF BODY SYSTEMS: Medium and CLINICAL DECISION MAKING: Medium Patient's Goal(s): To get to feeling better and return to Prior level of functioning. Short Term Goals Goals GOAL 1: Pt to be CGA for grooming at the sink in standing. Goal to be met by: 08/30/23 GOAL 2: Pt to be SUP for toilet transfers. Goal to be met by: 08/30/23 GOAL 3: Pt to increase dyn. std. bal. to be F+. Goal to be met by: 08/30/23 GOAL 4: Pt to increase BUE strength to 4/5. Goal to be met by: 08/30/23 Tow Car Driver Goals GOAL 1: Pt to be I with ADLS. Goal to be met by: 09/01/23 GOAL 2: Pt to increase dyn. std. bal. to G-. Goal to be met by: 09/01/23 GOAL 3: Pt to increase BUE strength to 5/5. Goal to be met by: 09/01/23 Plan Plan of Care: Therapeutic EX, Neuromuscular Re-Educ, Therapeutic Activity and Self-Care/Home Management Frequency of Treatment: 1-2 X day, as tolerated Duration of Treatment: 6 days Treatment Diagnosis (ICD 10 Codes): Weakness R53.1, R26.21 Impaired Balance, Z74.1 Need for help with personal care. Has the Physician been added for Co-signature?: Yes
[2023-08-27] MEDS: ATIVAN PO PRN (02:09)
[2023-08-27] MEDS: XOPENEX 1.25 MG NEB SCH ×4 (05:10→23:21)
[2023-08-27] MEDS: PROTONIX PO SCH (05:21)
[2023-08-27 05:33] LABS: BASOPHILS % (AUTO) 0.1 % (0.0-3.0); HEMATOCRIT 33.3 % (37.0-47.0); HEMOGLOBIN 11.3 g/dl (12.0-16.0); IMMATURE GRANULOCYTE # (AUTO) 0.1 (0.0-1.0); IMMATURE GRANULOCYTE % (AUTO) 0.5 % (0.0-5.0); LYMPHOCYTES # (AUTO) 0.4 K/uL (0.60-3.4); LYMPHOCYTES % (AUTO) 1.6 (10.0-50.0); MEAN CORPUSCULAR HEMOGLOBIN 31.5 pg (27.0-31.0); MEAN CORPUSCULAR HGB CONC 33.9 (31.8-35.4); MEAN CORPUSCULAR VOLUME 92.8 fl (81.0-99.0); MONOCYTES # (AUTO) 1.3 K/uL (0.4-2.0); MONOCYTES % (AUTO) 5.7 (0-10); NEUTROPHILS # (AUTO) 20.2 K/ul (2.0-6.9); NEUTROPHILS % (AUTO) 92.1 % (42.2-75.2); PLATELET COUNT 354 10^3/uL (140-440); RDW COEFFICIENT OF VARIATION 12.9 % (11.6-14.8); RED BLOOD COUNT 3.59 10^6/ul (4.20-5.40)
[2023-08-27 05:42] LABS: ALBUMIN 3.94 g/dL (3.5-5.0); ALKALINE PHOSPHATASE 99.4 U/L (53-141); ASPARTATE AMINO TRANSFERASE 42.2 U/L (14-36); BILIRUBIN,TOTAL 0.42 mg/dL (0.2-1.3); BLOOD UREA NITROGEN 29.5 mg/dL (7-17); CALCIUM 9.74 mg/dL (8.4-10.2); CARBON DIOXIDE 20.1 mmol/L (22-30.0); CHLORIDE 104.3 mmol/L (98-107); CREATININE 0.7 mg/dL (0.60-1.30); GLUCOSE 178.3 mg/dL (74-106); POTASSIUM 4.22 mmol/L (3.5-5.1); SODIUM 133.2 mmol/L (134.5-145); TOTAL PROTEIN 7.17 g/dL (6.3-8.2)
[2023-08-27] MEDS: SOLU-MEDROL 40 MG IVP SCH ×3 (05:56→20:24)
[2023-08-27] MEDS: SYMBICORT 160-4.5 MCG INHALER IH PRN ×2 (08:26→20:37)
[2023-08-27] MEDS: SODIUM CHLORIDE PO SCH ×4 (08:27→20:37)
[2023-08-27] MEDS: MUCINEX PO SCH ×2 (08:27→20:37)
[2023-08-27] MEDS: ROBITUSSIN DM SYRUP PO PRN (08:27)
[2023-08-27] MEDS: CARDIZEM PO SCH ×2 (08:27→20:37)
[2023-08-27] MEDS: PRAVACHOL PO SCH (08:27)
[2023-08-27] MEDS: REQUIP PO SCH (08:27)
[2023-08-27] MEDS: ZEBETA PO SCH (08:27)
[2023-08-27] MEDS: ELIQUIS PO SCH ×2 (08:28→20:38)
[2023-08-27] MEDS: COZAAR PO SCH ×2 (08:28→20:37)
[2023-08-27] MEDS ORDERED: DOXY-100 100 MG in SODIUM CHLORIDE 100ML 100 ML IV SCH (09:00)
--- NOTE | 2023-08-27 09:47 | PCM.PROG ---
Date/Time Seen Date Seen by Provider: 08/27/23 Time Seen by Provider: 08:20 Provider Provider: JOHN NEFF PA-C, [facility] Chief Complaint Chief Complaint: CHF; URI; HYPONATREMIA; HYPOXIA Subjective Subjective: Patient reportedly confused in the mornings and very anxious. Patient recalls being confused. She now knows she's in the hospital and can tell me why she is here. She answers questions appropriately. She still has a significant cough. She states her breathing has improved but lung sounds still very adventitious. Still requiring O2. Very weak walking to the restroom per nursing staff. Objective Appearance: Positive Alert and Oriented x3 and Ill-Appearing Chest/Lungs: Positive Rhonci (addi, worse today), Wheezes (addi, improving ) and Other (Wearing 2L nasal cannula ) Heart: Positive RRR GI/: Positive Soft, Nontender, Bowel Sounds Normal and No Distention Neurological: Positive Cranial Nerves Intact, Alert, Oriented and Other (+generalized weakness ); Negative Focal Deficit Vital Signs Vital Signs: Vital Signs: Last 24 Hours 08/26/23 10:00 08/26/23 11:57 08/26/23 13:00 Temperature 96.7 F L Temperature Source Temporal Artery Scan Pulse Rate 91 Respiratory Rate 22 H Blood Pressure 173/86 H Blood Pressure Mean 115 Blood Pressure Location Left Arm Blood Pressure Position Sitting O2 Sat by Pulse Oximetry 93 L Oxygen Delivery Method Nasal Cannula Nasal Cannula Oxygen Flow Rate 2 2 Telemetry Type Remote Telemetry Telemetry Monitoring Continues Telemetry Heart Rate 86 Telemetry SPO2 92 L EKG [place] Interval 0.16 EKG QRS Interval 0.07 Telemetry Strip Reading SR 08/26/23 14:00 08/26/23 14:00 08/26/23 17:25 Temperature 97.2 F L 97.3 F L Temperature Source Temporal Artery Scan Temporal Artery Scan Pulse Rate 90 95 Respiratory Rate 18 18 Blood Pressure 101/67 153/63 H Blood Pressure Mean 78 93 Blood Pressure Location Right Arm Left Arm Blood Pressure Position Supine Supine O2 Sat by Pulse Oximetry 94 L 90 L 93 L Oxygen Delivery Method Nasal Cannula Nasal Cannula Nasal Cannula Oxygen Flow Rate 2 1 1 Telemetry Type Telemetry Monitoring Telemetry Heart Rate Telemetry SPO2 EKG [place] Interval EKG QRS Interval Telemetry Strip Reading 08/26/23 19:00 08/26/23 20:00 08/26/23 20:00 Temperature Temperature Source Pulse Rate Respiratory Rate 20 Blood Pressure Blood Pressure Mean Blood Pressure Location Blood Pressure Position O2 Sat by Pulse Oximetry Oxygen Delivery Method Nasal Cannula Nasal Cannula Oxygen Flow Rate 2 2 Telemetry Type Remote Telemetry Telemetry Monitoring Continues Telemetry Heart Rate 100 Telemetry SPO2 92 L EKG [place] Interval 0.16 EKG QRS Interval 0.06 Telemetry Strip Reading NSR 08/26/23 21:23 08/27/23 01:00 08/27/23 02:00 Temperature 98.4 F 97.7 F Temperature Source Oral Oral Pulse Rate 92 85 Respiratory Rate 18 20 Blood Pressure 183/72 H 171/68 H Blood Pressure Mean 109 102 Blood Pressure Location Left Arm Left Arm Blood Pressure Position Supine Supine O2 Sat by Pulse Oximetry 90 L 90 L Oxygen Delivery Method Nasal Cannula Nasal Cannula Oxygen Flow Rate 2 2 Telemetry Type Remote Telemetry Telemetry Monitoring Continues Telemetry Heart Rate 87 Telemetry SPO2 89 L EKG [place] Interval 0.14 EKG QRS Interval 0.08 Telemetry Strip Reading NSR 08/27/23 05:19 08/27/23 05:25 08/27/23 07:00 Temperature 97.6 F Temperature Source Temporal Artery Scan Pulse Rate 96 Respiratory Rate 20 Blood Pressure 177/83 H Blood Pressure Mean 114 Blood Pressure Location Left Arm Blood Pressure Position Supine O2 Sat by Pulse Oximetry 100 94 L Oxygen Delivery Method Nebulizer Treatment Nasal Cannula Oxygen Flow Rate 2 2 Telemetry Type Remote Telemetry Telemetry Monitoring Continues Telemetry Heart Rate 90 Telemetry SPO2 90 L EKG [place] Interval 0.16 EKG QRS Interval 0.10 Telemetry Strip Reading SR Lab Results Lab Results: Lab Results: Last 24 Hours 08/27/23 08/24/23 05:17 15:20 WBC 22.00 H RBC 3.59 L Hgb 11.3 L Hct 33.3 L MCV 92.8 MCH 31.5 H MCHC 33.9 RDW Coeff of Hemant 12.9 Plt Count 354 Immature Gran % (Auto) 0.5 Neut % (Auto) 92.1 H Lymph % (Auto) 1.6 L [place] % (Auto) 5.7 Eos % (Auto) 0.0 Baso % (Auto) 0.1 Neut # (Auto) 20.2 H Lymph # (Auto) 0.4 L [place] # (Auto) 1.3 Eos # (Auto) 0.0 Baso # (Auto) 0.0 Immature Gran # (Auto) 0.1 Sodium 133.2 L Potassium 4.22 Chloride 104.3 Carbon Dioxide 20.1 L Anion Gap 13.02 BUN 29.5 H Creatinine 0.70 Estimated GFR (MDRD) 80.00 BUN/Creatinine Ratio 42.14 Glucose 178.3 H Serum Osmolality 425 H Calcium 9.74 Total Bilirubin 0.42 AST 42.2 H ALT 34.0 Alkaline Phosphatase 99.4 Total Protein 7.17 Albumin 3.94 Globulin 3.23 Albumin/Globulin Ratio 1.21 Procalcitonin < 0.05 Additional Comments Additional Comments: I have independently reviewed and interpreted the labs/EKGs/imaging ordered during this hospital stay. I have reviewed outside records that are available in our EMR that pertain to medical stay including imaging/notes/labs from previous visits. Active Medications Active Medications: Medications Generic Name Dose Route Start Last Admin Trade Name Freq PRN Reason Stop Dose Admin Acetaminophen 650 mg 08/24/23 15:40 Acetaminophen 325 Mg Tablet PO Q4H PRN Mild Pain Hydrocodone Bitart/Acetaminophen 1 tab 08/24/23 20:20 08/26/23 20:48 Hydrocodone Bit/Acetaminophen 7.5/325 Mg Tablet PO 1 tab QID PRN Administration MODERATE PAIN Apixaban 2.5 mg 08/26/23 21:00 08/27/23 08:28 Apixaban 5 Mg Tab PO 2.5 mg BID TATAINA Administration Bisoprolol Fumarate 10 mg 08/25/23 09:00 08/27/23 08:27 Bisoprolol Fumarate 5 Mg Tablet PO 10 mg DAILY TATIANA Administration Budesonide/Formoterol Fumarate 1 puff 08/24/23 20:20 08/27/23 08:26 Budesonide/Formoterol Fumarate 160/4.5 Mcg Inhaler IH 1 puff BID PRN Administration sob Cyclobenzaprine HCl 10 mg 08/24/23 20:20 08/25/23 21:22 Cyclobenzaprine Hcl 10 Mg Tablet PO 10 mg BID PRN Administration muscle pain Diltiazem HCl 60 mg 08/25/23 09:00 08/27/23 08:27 Diltiazem Hcl 60 Mg Tablet PO 60 mg Q12HR TATIANA Administration Guaifenesin 600 mg 08/26/23 10:00 08/27/23 08:27 Guaifenesin 600 Mg Tablet.Er PO 600 mg Q12HR TATIANA Administration Guaifenesin/Dextromethorphan 10 ml 08/26/23 09:02 08/27/23 08:27 Guaifenesin/Dextromethorphan 200/20 Mg/10 Ml Cup PO 10 ml Q6HR PRN Administration Cough Doxycycline Hyclate 100 mg/ 100 mls @ 50 mls/hr 08/27/23 09:00 08/27/23 08:27 Sodium Chloride IV 08/30/23 08:59 50 mls/hr Q12HR TATIANA Administration Levalbuterol HCl 1.25 mg 08/25/23 12:00 08/27/23 05:10 Levalbuterol Hcl 1.25 Mg/3 Ml Vial.Neb NEB 1.25 mg RTQ6H TATIANA Administration Lorazepam 0.5 mg 08/24/23 20:20 08/27/23 02:09 Lorazepam 0.5 Mg Tablet PO 0.5 mg BEDTIME PRN Administration Insomnia Losartan Potassium 50 mg 08/24/23 21:00 08/27/23 08:28 Losartan Potassium 25 Mg Tablet PO 50 mg BID TATIANA Administration Methylprednisolone Sodium Succinate 40 mg 08/24/23 21:00 08/27/23 05:56 Methylprednisolone Sod Succ/Pf 40 Mg/Ml Vial IVP 40 mg Q8HR TATIANA Administration Ondansetron HCl 4 mg 08/24/23 15:40 Ondansetron Hcl/Pf 4 Mg/2 Ml Sdv IVP Q6H PRN Nausea / Vomiting Pantoprazole Sodium 40 mg 08/25/23 09:00 08/27/23 05:21 Pantoprazole Sodium 40 Mg Tablet.Dr PO 40 mg QDAC2 TATIANA Administration Pravastatin Sodium 40 mg 08/25/23 09:00 08/27/23 08:27 Pravastatin Sodium 40 Mg Tablet PO 40 mg DAILY TATIANA Administration Ropinirole HCl 0.5 mg 08/25/23 09:00 08/27/23 08:27 Ropinirole Hcl 0.25 Mg Tablet PO 0.5 mg DAILY TATIANA Administration Sodium Chloride 1 syr 08/24/23 14:12 08/26/23 12:58 0.9% Sodium Chloride 10 Ml Disp.Syrin IVF 1 syr PRN PRN Administration To flush IV Sodium Chloride 1 gm 08/24/23 17:00 08/27/23 08:27 Sodium Chloride 1 Gm Tablet PO 1 gm QID TATIANA Administration Sodium Chloride 1 syr 08/26/23 21:00 08/27/23 05:21 0.9% Sodium Chloride 10 Ml Disp.Syrin IVF 1 syr Q8HR TATIANA Administration Plan Plan: 1. Acute symptomatic hyponatremia - Improving. Cont salt tabs. No offending medications noted. Urine/serum osmol, urine sodium ordered. Pt appears euvolemic. Received lasix 20 in ER. 2. Acute hypoxic respiratory failure in setting of COPD exacerbation - Cont doxy, cont solumedrol, nebs, rt consult, Cont O2 to keep >92%. CTA chest ordered. 3. Acute COPD exacerbation - Plan as above. Robitussin and mucinex ordered. 4. Weakness - Pt/ot 5. A fib RVR - Resolved. Cont home meds. Stop ASA, add eliquis 2.5 bid based on age/weight. Echo with normal EF. BNP elevated. 6. Hypertension - Cont home meds 7. Hyperlipidemia - Cont home meds 8. Restless leg syndrome - Cont home meds DVT: Eliquis Of note, patient had recent PET scan showing possible area in lung and liver. Has recent hx of melanoma. Pt states she saw oncology on Tuesday of this week and she was told neither area is of concern. Update: CTA showed addi lower lobe patchy airspace opacities. Stop doxy, start levaquin. 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 Pt has not had any n/v, abd pain. Called [facility] in [place], no account consultant vascular or ID. Called [facility] in [place], spoke with vascular specialist Dr. Gloria Soto. She states since patient is asymptomatic, outpatient f/u is appropriate. Educate patient on signs and symptoms to return to ER. Make sure she is on a statin and recommended adding ASA to Eliquis. Will do so. Review Statement Review Statement: I have personally discussed and reviewed the patient's visit/currently labs/imaging/decision making with Dr. Cruz, my supervising attending. Greater that 50 minutes spent with patient, 50% of the time spent with this patient was devoted to counseling and coordination of care.
[2023-08-27] MEDS ORDERED: LEVAQUIN 750 MG/150 ML D5W 750 MG/150 ML BAG IV SCH (11:50)
--- NOTE | 2023-08-27 16:19 | CT ---
EXAM: CTA CHEST IV CONTRASTLINE HISTORY: Hypoxia, shortness of breath TECHNIQUE: Multi-slice transaxial helical protocol. Multiplanar MIP and 3D volume rendered images are provided. COMPARISON: 03/14/2023 FINDINGS: The heart appears normal in size. A moderate amount of calcified plaque is seen within the thoracic aorta. No evidence of aortic dissection is seen. Examination is limited secondary to yany on artifacts. Pulmonary arteries in the left lower lobe are significantly limited in evaluation. Th ere is also limited evaluation of pulmonary arteries the right lower lobe and right middle lobe secon eliseo to motion artifacts. No evidence of pulmonary embolism is seen within the visualized pulmonary arteries. The no mediastinal adenopathy is seen. A small cyst is seen at the superior pole of the ri ght kidney. A high-grade stenosis versus occlusion at the superior mesenteric artery as seen on axia l image 123 - wire 24. A dense atrial is seen within the left colon compatible with residual contras t material. The bones appear diffusely demineralized. Multilevel cervical, thoracic, lumbar spondyl osis is seen, worst at the lower cervical spine. Biapical pleural thickening/scarring is again seen. Emphysematous change of the lungs are seen. Bilateral lower lobe patchy airspace opacities are see n. There is no evidence of pleural effusion. Left apical ground-glass opacity on axial image 25 [place] s not appear significantly changed. IMPRESSION: 1. Limited exam for PE secondary to motion artifacts. No definite evidence of PE in the visualized pulmonary arteries. 2. Bibasilar atelectasis and pneumonia. 3. Pulmonary emphysema. 4. Unchanged left apical ground-glass opacity. 5. 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 Recommend surgi matt consultation. 6. Additional chronic/incidental findings as above. All CT scans are performed using dose optimization techniques as appropriate to the performed exam an d include at least one of the following: Automated exposure control, adjustment of the mA and/or kV according t o size, and the use of iterative reconstruction technique.
[2023-08-27] MEDS: FLEXERIL PO PRN (20:37)
[2023-08-28] MEDS: SOLU-MEDROL 40 MG IVP SCH ×3 (04:13→20:37)
[2023-08-28] MEDS: PROTONIX PO SCH (05:09)
[2023-08-28] MEDS: XOPENEX 1.25 MG NEB SCH ×4 (05:14→23:19)
[2023-08-28 05:44] LABS: BASOPHILS % (AUTO) 0.1 % (0.0-3.0); HEMATOCRIT 34.9 % (37.0-47.0); HEMOGLOBIN 11.6 g/dl (12.0-16.0); IMMATURE GRANULOCYTE # (AUTO) 0.1 (0.0-1.0); IMMATURE GRANULOCYTE % (AUTO) 0.3 % (0.0-5.0); LYMPHOCYTES # (AUTO) 0.5 K/uL (0.60-3.4); LYMPHOCYTES % (AUTO) 2.6 (10.0-50.0); MEAN CORPUSCULAR HEMOGLOBIN 31.3 pg (27.0-31.0); MEAN CORPUSCULAR HGB CONC 33.2 (31.8-35.4); MEAN CORPUSCULAR VOLUME 94.1 fl (81.0-99.0); MONOCYTES % (AUTO) 5.4 (0-10); NEUTROPHILS % (AUTO) 91.6 % (42.2-75.2); PLATELET COUNT 280 10^3/uL (140-440); RDW COEFFICIENT OF VARIATION 12.9 % (11.6-14.8); RED BLOOD COUNT 3.71 10^6/ul (4.20-5.40); WHITE BLOOD COUNT 18.58 K/ul (4.6-10.2)
[2023-08-28 05:48] LABS: ALANINE AMINOTRANSFERASE 38.1 U/L (0-35); ALBUMIN 3.51 g/dL (3.5-5.0); ALKALINE PHOSPHATASE 94.1 U/L (53-141); ASPARTATE AMINO TRANSFERASE 33.7 U/L (14-36); BILIRUBIN,TOTAL 0.35 mg/dL (0.2-1.3); BLOOD UREA NITROGEN 20.1 mg/dL (7-17); CALCIUM 9.55 mg/dL (8.4-10.2); CARBON DIOXIDE 23.4 mmol/L (22-30.0); CHLORIDE 103.2 mmol/L (98-107); CREATININE 0.63 mg/dL (0.60-1.30); GLUCOSE 140.9 mg/dL (74-106); POTASSIUM 3.58 mmol/L (3.5-5.1); SODIUM 133.3 mmol/L (134.5-145); TOTAL PROTEIN 6.51 g/dL (6.3-8.2)
[2023-08-28] MEDS: SODIUM CHLORIDE PO SCH ×4 (08:28→20:23)
[2023-08-28] MEDS ORDERED: MIRALAX PO PRN (08:28)
[2023-08-28] MEDS: ZEBETA PO SCH (08:28)
[2023-08-28] MEDS: PRAVACHOL PO SCH (08:28)
[2023-08-28] MEDS: MUCINEX PO SCH ×2 (08:28→20:23)
[2023-08-28] MEDS: COZAAR PO SCH ×2 (08:28→20:23)
[2023-08-28] MEDS ORDERED: COLACE PO PRN (08:28)
[2023-08-28] MEDS: REQUIP PO SCH (08:29)
[2023-08-28] MEDS: CARDIZEM PO SCH ×2 (08:29→20:23)
[2023-08-28] MEDS: ELIQUIS PO SCH ×2 (08:29→20:24)
[2023-08-28] MEDS ORDERED: ASPIRIN CHEWABLE PO SCH (09:00)
--- NOTE | 2023-08-28 09:02 | PCM.PROG ---
Date/Time Seen Date Seen by Provider: 08/28/23 Time Seen by Provider: 08:30 Provider Provider[facility] Chief Complaint Chief Complaint: CHF; URI; HYPONATREMIA; HYPOXIA Subjective Subjective: Patient states she's feeling better today finally. Not resting well at night however. She is in better spirits today. States her breathing feels much better. Objective Appearance: Positive Alert and Oriented x3 and Ill-Appearing Chest/Lungs: Positive Rhonci (addi, much improved ), Wheezes (addi, much improved ) and Other Heart: Positive RRR GI/: Positive Soft, Nontender, Bowel Sounds Normal and No Distention Neurological: Positive Cranial Nerves Intact, Alert, Oriented and Other (+generalized weakness ); Negative Focal Deficit Vital Signs Vital Signs: Vital Signs: Last 24 Hours 08/27/23 10:00 08/27/23 10:00 08/27/23 13:00 Temperature 98.2 F Temperature Source Oral Pulse Rate 77 Respiratory Rate 18 Blood Pressure 157/69 H Blood Pressure Mean 98 Blood Pressure Location Left Arm Blood Pressure Position Sitting O2 Sat by Pulse Oximetry 93 L 94 L Oxygen Delivery Method Nasal Cannula Nasal Cannula Oxygen Flow Rate 2 2 Telemetry Type Remote Telemetry Telemetry Monitoring Continues Telemetry Heart Rate 92 Telemetry SPO2 EKG [place] Interval 0.16 EKG QRS Interval 0.10 Telemetry Strip Reading sr w/ pvc 08/27/23 14:00 08/27/23 14:00 08/27/23 18:00 Temperature 98.1 F 98.3 F Temperature Source Oral Oral Pulse Rate 95 103 H Respiratory Rate 19 22 H Blood Pressure 158/65 H 166/73 H Blood Pressure Mean 96 104 Blood Pressure Location Left Arm Left Arm Blood Pressure Position Sitting Sitting O2 Sat by Pulse Oximetry 99 98 98 Oxygen Delivery Method Nasal Cannula Nasal Cannula Nasal Cannula Oxygen Flow Rate 2 2 2 Telemetry Type Telemetry Monitoring Telemetry Heart Rate Telemetry SPO2 EKG KS Interval EKG QRS Interval Telemetry Strip Reading 08/27/23 19:00 08/27/23 19:53 08/27/23 19:55 Temperature Temperature Source Pulse Rate Respiratory Rate Blood Pressure Blood Pressure Mean Blood Pressure Location Blood Pressure Position O2 Sat by Pulse Oximetry 97 Oxygen Delivery Method Nasal Cannula Nasal Cannula Oxygen Flow Rate 2 2 Telemetry Type Remote Telemetry Telemetry Monitoring Continues Telemetry Heart Rate 111 H Telemetry SPO2 97 EKG [place] Interval 0.14 EKG QRS Interval 0.12 H Telemetry Strip Reading SR W/ BBB & PVCS 08/27/23 21:41 08/28/23 01:00 08/28/23 05:06 Temperature 98.2 F 98 F Temperature Source Oral Oral Pulse Rate 97 97 Respiratory Rate 18 20 Blood Pressure 169/70 H 149/76 H Blood Pressure Mean 103 100 Blood Pressure Location Left Arm Left Arm Blood Pressure Position Supine Supine O2 Sat by Pulse Oximetry 93 L 97 Oxygen Delivery Method Nasal Cannula Nasal Cannula Oxygen Flow Rate 2 2 Telemetry Type Remote Telemetry Telemetry Monitoring Continues Telemetry Heart Rate 89 Telemetry SPO2 94 EKG [place] Interval 0.14 EKG QRS Interval 0.06 Telemetry Strip Reading NSR 08/28/23 06:00 08/28/23 07:00 Temperature Temperature Source Pulse Rate Respiratory Rate Blood Pressure Blood Pressure Mean Blood Pressure Location Blood Pressure Position O2 Sat by Pulse Oximetry Oxygen Delivery Method Nasal Cannula Oxygen Flow Rate 2 Telemetry Type Remote Telemetry Telemetry Monitoring Continues Telemetry Heart Rate 96 Telemetry SPO2 95 EKG [place] Interval 0.12 EKG QRS Interval 0.10 Telemetry Strip Reading sr w/ PVCs Lab Results Lab Results: Lab Results: Last 24 Hours 08/28/23 08/27/23 05:03 05:17 WBC 18.58 H RBC 3.71 L Hgb 11.6 L Hct 34.9 L MCV 94.1 MCH 31.3 H MCHC 33.2 RDW Coeff of Hemant 12.9 Plt Count 280 Immature Gran % (Auto) 0.3 Neut % (Auto) 91.6 H Lymph % (Auto) 2.6 L [place] % (Auto) 5.4 Eos % (Auto) 0.0 Baso % (Auto) 0.1 Neut # (Auto) 17.0 H Lymph # (Auto) 0.5 L [place] # (Auto) 1.0 Eos # (Auto) 0.0 Baso # (Auto) 0.0 Immature Gran # (Auto) 0.1 Sodium 133.3 L Potassium 3.58 Chloride 103.2 Carbon Dioxide 23.4 Anion Gap 10.28 BUN 20.1 H Creatinine 0.63 Estimated GFR (MDRD) 90.00 BUN/Creatinine Ratio 31.90 Glucose 140.9 H Calcium 9.55 Total Bilirubin 0.35 AST 33.7 ALT 38.1 H Alkaline Phosphatase 94.1 Total Protein 6.51 Albumin 3.51 Globulin 3.00 Albumin/Globulin Ratio 1.17 Procalcitonin < 0.05 Additional Comments Additional Comments: I have independently reviewed and interpreted the labs/EKGs/imaging ordered during this hospital stay. I have reviewed outside records that are available in our EMR that pertain to medical stay including imaging/notes/labs from previous visits. Active Medications Active Medications: Medications Generic Name Dose Route Start Last Admin Trade Name Freq PRN Reason Stop Dose Admin Acetaminophen 650 mg 08/24/23 15:40 Acetaminophen 325 Mg Tablet PO Q4H PRN Mild Pain Hydrocodone Bitart/Acetaminophen 1 tab 08/24/23 20:20 08/26/23 20:48 Hydrocodone Bit/Acetaminophen 7.5/325 Mg Tablet PO 1 tab QID PRN Administration MODERATE PAIN Apixaban 2.5 mg 08/26/23 21:00 08/28/23 08:29 Apixaban 5 Mg Tab PO 2.5 mg BID TATIANA Administration Aspirin 81 mg 08/28/23 09:00 08/28/23 08:29 Aspirin 81 Mg Tab.Chew PO 81 mg DAILY TATIANA Administration Bisoprolol Fumarate 10 mg 08/25/23 09:00 08/28/23 08:28 Bisoprolol Fumarate 5 Mg Tablet PO 10 mg DAILY TATIANA Administration Budesonide/Formoterol Fumarate 1 puff 08/24/23 20:20 08/27/23 20:37 Budesonide/Formoterol Fumarate 160/4.5 Mcg Inhaler IH 1 puff BID PRN Administration sob Cyclobenzaprine HCl 10 mg 08/24/23 20:20 08/27/23 20:37 Cyclobenzaprine Hcl 10 Mg Tablet PO 10 mg BID PRN Administration muscle pain Diltiazem HCl 60 mg 08/25/23 09:00 08/28/23 08:29 Diltiazem Hcl 60 Mg Tablet PO 60 mg Q12HR TATIANA Administration Docusate Sodium 100 mg 08/28/23 08:28 Docusate Sodium 100 Mg Capsule PO DAILY PRN Constipation Guaifenesin 600 mg 08/26/23 10:00 08/28/23 08:28 Guaifenesin 600 Mg Tablet.Er PO 600 mg Q12HR TATIANA Administration Guaifenesin/Dextromethorphan 10 ml 08/26/23 09:02 08/27/23 08:27 Guaifenesin/Dextromethorphan 200/20 Mg/10 Ml Cup PO 10 ml Q6HR PRN Administration Cough Levofloxacin/Dextrose 750 mg in 150 mls @ 100 mls/hr 08/28/23 09:00 Levaquin 750 Mg/150 Ml D5w IV 08/31/23 08:59 DAILY TATIANA Levalbuterol HCl 1.25 mg 08/25/23 12:00 08/28/23 05:14 Levalbuterol Hcl 1.25 Mg/3 Ml Vial.Neb NEB 1.25 mg RTQ6H TATIANA Administration Lorazepam 0.5 mg 08/24/23 20:20 08/27/23 02:09 Lorazepam 0.5 Mg Tablet PO 0.5 mg BEDTIME PRN Administration Insomnia Losartan Potassium 50 mg 08/24/23 21:00 08/28/23 08:28 Losartan Potassium 25 Mg Tablet PO 50 mg BID TATIANA Administration Methylprednisolone Sodium Succinate 40 mg 08/24/23 21:00 08/28/23 04:13 Methylprednisolone Sod Succ/Pf 40 Mg/Ml Vial IVP 40 mg Q8HR TATIANA Administration Ondansetron HCl 4 mg 08/24/23 15:40 Ondansetron Hcl/Pf 4 Mg/2 Ml Sdv IVP Q6H PRN Nausea / Vomiting Pantoprazole Sodium 40 mg 08/25/23 09:00 08/28/23 05:09 Pantoprazole Sodium 40 Mg Tablet.Dr PO 40 mg QDAC2 TATIANA Administration Polyethylene Glycol 17 gm 08/28/23 08:28 Polyethylene Glycol 17 Gm Powd.Pack PO DAILY PRN Constipation Pravastatin Sodium 40 mg 08/25/23 09:00 08/28/23 08:28 Pravastatin Sodium 40 Mg Tablet PO 40 mg DAILY TATIANA Administration Ropinirole HCl 0.5 mg 08/25/23 09:00 08/28/23 08:29 Ropinirole Hcl 0.25 Mg Tablet PO 0.5 mg DAILY TATIANA Administration Sodium Chloride 1 syr 08/24/23 14:12 08/26/23 12:58 0.9% Sodium Chloride 10 Ml Disp.Syrin IVF 1 syr PRN PRN Administration To flush IV Sodium Chloride 1 gm 08/24/23 17:00 08/28/23 08:28 Sodium Chloride 1 Gm Tablet PO 1 gm QID TATIANA Administration Sodium Chloride 1 syr 08/26/23 21:00 08/28/23 04:14 0.9% Sodium Chloride 10 Ml Disp.Syrin IVF 1 syr Q8HR TATIANA Administration Plan Plan: 1. Acute symptomatic hyponatremia - Improving. Cont salt tabs. No offending medications noted. Urine/serum osmol, urine sodium ordered. Pt appears euvolemic. Received lasix 20 in ER. 2. Acute hypoxic respiratory failure in setting of COPD exacerbation and pneumonia - Improving, cont levaquin, solumedrol, nebs, rt consult, Cont O2 to keep >92%. 3. Acute COPD exacerbation - Plan as above. Robitussin and mucinex ordered. 4. Pneumonia, addi, community acquired - Plan as above 5. Weakness - Pt/ot 6. A fib RVR - Resolved. Cont home meds. Cont eliquis 2.5 bid based on age/weight and ASA. Echo with normal EF. BNP elevated. 7. Hypertension - Cont home meds 8. Hyperlipidemia - Cont home meds 9. Restless leg syndrome - Cont home meds 10. 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 Spoke with vascular specialist Dr. Gloria Soto at [facility]. She sta kristy since patient is asymptomatic, outpatient f/u is appropriate. Educate patient on signs and symptoms to return to ER. Make sure she is on a statin and recommended adding ASA to Eliquis. Spoke with patient about it today. She is not interested at this time in pursuing a further work up. DVT: Eliquis Dispo: Dc in next 1-2 days. Discussed swingbed option, patient doesn't think she would be interested. Of note, patient had recent PET scan showing possible area in lung and liver. Has recent hx of melanoma. Pt states she saw oncology on Tuesday of this week and she was told neither area is of concern. Review Statement Review Statement: I have personally discussed and reviewed the patient's visit/currently labs/imag ing/decision making with Dr. Cruz, my supervising attending. Greater that 50 minutes spent with patient, 50% of the time spent with this patient was devoted to counseling and coordination of care.
[2023-08-28] MEDS: LEVAQUIN 750 MG/150 ML D5W 750 MG/150 ML BAG IV SCH (09:06)
[2023-08-28] MEDS: FLEXERIL PO PRN (20:23)
[2023-08-28] MEDS: ATIVAN PO PRN (20:24)
[2023-08-29] MEDS: PROTONIX PO SCH (05:10)
[2023-08-29] MEDS: XOPENEX 1.25 MG NEB SCH ×4 (05:23→23:01)
[2023-08-29 05:27] LABS: BASOPHILS % (AUTO) 0.1 % (0.0-3.0); HEMATOCRIT 32.3 % (37.0-47.0); HEMOGLOBIN 10.9 g/dl (12.0-16.0); IMMATURE GRANULOCYTE # (AUTO) 0.1 (0.0-1.0); IMMATURE GRANULOCYTE % (AUTO) 0.7 % (0.0-5.0); LYMPHOCYTES # (AUTO) 0.5 K/uL (0.60-3.4); LYMPHOCYTES % (AUTO) 3.2 (10.0-50.0); MEAN CORPUSCULAR HEMOGLOBIN 31.1 pg (27.0-31.0); MEAN CORPUSCULAR HGB CONC 33.7 (31.8-35.4); MEAN CORPUSCULAR VOLUME 92.3 fl (81.0-99.0); MONOCYTES # (AUTO) 0.7 K/uL (0.4-2.0); MONOCYTES % (AUTO) 4.4 (0-10); NEUTROPHILS # (AUTO) 14.8 K/ul (2.0-6.9); NEUTROPHILS % (AUTO) 91.6 % (42.2-75.2); PLATELET COUNT 275 10^3/uL (140-440); RDW COEFFICIENT OF VARIATION 12.9 % (11.6-14.8); WHITE BLOOD COUNT 16.12 K/ul (4.6-10.2)
[2023-08-29] MEDS: SOLU-MEDROL 40 MG IVP SCH ×3 (05:38→20:07)
[2023-08-29 05:40] LABS: ALANINE AMINOTRANSFERASE 36.1 U/L (0-35); ALBUMIN 3.41 g/dL (3.5-5.0); ASPARTATE AMINO TRANSFERASE 28.9 U/L (14-36); BILIRUBIN,TOTAL 0.61 mg/dL (0.2-1.3); BLOOD UREA NITROGEN 18.7 mg/dL (7-17); CALCIUM 9.36 mg/dL (8.4-10.2); CARBON DIOXIDE 25.1 mmol/L (22-30.0); CHLORIDE 102.4 mmol/L (98-107); CREATININE 0.62 mg/dL (0.60-1.30); GLUCOSE 134.8 mg/dL (74-106); POTASSIUM 3.67 mmol/L (3.5-5.1); SODIUM 132.7 mmol/L (134.5-145); TOTAL PROTEIN 6.2 g/dL (6.3-8.2)
[2023-08-29] MEDS: ZEBETA PO SCH (08:23)
[2023-08-29] MEDS: LEVAQUIN 750 MG/150 ML D5W 750 MG/150 ML BAG IV SCH (08:23)
[2023-08-29] MEDS: REQUIP PO SCH (08:23)
[2023-08-29] MEDS: CARDIZEM PO SCH ×2 (08:24→20:49)
[2023-08-29] MEDS: COZAAR PO SCH ×2 (08:24→20:49)
[2023-08-29] MEDS: ELIQUIS PO SCH ×2 (08:24→20:50)
[2023-08-29] MEDS: MUCINEX PO SCH ×2 (08:25→20:49)
[2023-08-29] MEDS: PRAVACHOL PO SCH (08:25)
[2023-08-29] MEDS: SODIUM CHLORIDE PO SCH ×4 (08:25→20:49)
[2023-08-29] MEDS: ASPIRIN CHEWABLE PO SCH (08:25)
--- NOTE | 2023-08-29 09:25 | PCM.PROG ---
Date/Time Seen Date Seen by Provider: 08/29/23 Time Seen by Provider: 08:30 Provider Provider: JOSE WIN, [facility] Chief Complaint Chief Complaint: CHF; URI; HYPONATREMIA; HYPOXIA Subjective Subjective: O2 sat dropped last night. Requiring 2L still at this time. States she feels about the same. Coughing up green sputum. Objective Appearance: Positive No Apparent Distress and Alert and Oriented x3 Chest/Lungs: Positive Symmetrical With Equal Breath Sounds, Rhonci, Wheezes and Other (diminished breath sounds throughout lung foss) Heart: Positive RRR and Pulses Normal GI/: Positive Soft, Nontender, Bowel Sounds Normal and No Distention Musculoskeletal: Positive Not Examined Neurological: Positive Sensation Intact, Motor intact, Alert and Oriented Vital Signs Vital Signs: Vital Signs: Last 24 Hours 08/28/23 09:28 08/28/23 10:00 08/28/23 11:27 Temperature 98.1 F Temperature Source Oral Pulse Rate 83 Respiratory Rate 19 Blood Pressure 145/75 H Blood Pressure Mean 98 Blood Pressure Location Left Arm Blood Pressure Position Sitting O2 Sat by Pulse Oximetry 95 96 96 Oxygen Delivery Method Nasal Cannula Nasal Cannula Nasal Cannula Oxygen Flow Rate 2 1.5 1.5 Telemetry Type Telemetry Monitoring Irregular Telemetry Rate (Approximate) Telemetry Heart Rate Telemetry SPO2 EKG WI Interval EKG QRS Interval Telemetry Strip Reading 08/28/23 13:00 08/28/23 13:41 08/28/23 14:00 Temperature 97.6 F Temperature Source Temporal Artery Scan Pulse Rate 92 Respiratory Rate 19 Blood Pressure 186/84 H Blood Pressure Mean 118 Blood Pressure Location Left Arm Blood Pressure Position Sitting O2 Sat by Pulse Oximetry 95 96 Oxygen Delivery Method Room Air Room Air Oxygen Flow Rate Telemetry Type Remote Telemetry Telemetry Monitoring Continues Irregular Telemetry Rate (Approximate) 90-100 BPM Telemetry Heart Rate 92 Telemetry SPO2 95 EKG WI Interval 0.12 EKG QRS Interval 0.13 H Telemetry Strip Reading SR w/BBB & Frequent PVCs 08/28/23 14:48 08/28/23 18:00 08/28/23 19:00 Temperature 97.7 F Temperature Source Temporal Artery Scan Pulse Rate 105 H Respiratory Rate 22 H Blood Pressure 120/73 147/92 H Blood Pressure Mean 88 110 Blood Pressure Location Right Arm Right Arm Blood Pressure Position Sitting O2 Sat by Pulse Oximetry 95 Oxygen Delivery Method Room Air Room Air Oxygen Flow Rate Telemetry Type Remote Telemetry Telemetry Monitoring Continues Irregular Telemetry Rate (Approximate) Telemetry Heart Rate 97 Telemetry SPO2 91 L EKG WI Interval 0.13 EKG QRS Interval 0.08 Telemetry Strip Reading SR 08/28/23 19:58 08/28/23 20:00 08/28/23 21:06 Temperature 97.3 F L Temperature Source Temporal Artery Scan Pulse Rate 97 Respiratory Rate 18 Blood Pressure 134/83 Blood Pressure Mean 100 Blood Pressure Location Left Arm Blood Pressure Position Supine O2 Sat by Pulse Oximetry 92 L 93 L Oxygen Delivery Method Room Air Nasal Cannula Nasal Cannula Oxygen Flow Rate 2 2 Telemetry Type Telemetry Monitoring Irregular Telemetry Rate (Approximate) Telemetry Heart Rate Telemetry SPO2 EKG WI Interval EKG QRS Interval Telemetry Strip Reading 08/29/23 01:00 08/29/23 05:01 08/29/23 05:17 Temperature 96.9 F L Temperature Source Temporal Artery Scan Pulse Rate 84 Respiratory Rate 18 Blood Pressure 142/87 H Blood Pressure Mean 105 Blood Pressure Location Right Arm Blood Pressure Position Supine O2 Sat by Pulse Oximetry 95 94 L Oxygen Delivery Method Room Air Nasal Cannula Oxygen Flow Rate 2 Telemetry Type Remote Telemetry Telemetry Monitoring Continues Irregular Telemetry Rate (Approximate) Telemetry Heart Rate 82 Telemetry SPO2 91 L EKG WI Interval 0.13 EKG QRS Interval 0.09 Telemetry Strip Reading SR 08/29/23 07:00 Temperature Temperature Source Pulse Rate Respiratory Rate Blood Pressure Blood Pressure Mean Blood Pressure Location Blood Pressure Position O2 Sat by Pulse Oximetry Oxygen Delivery Method Oxygen Flow Rate Telemetry Type Remote Telemetry Telemetry Monitoring Continues Irregular Telemetry Rate (Approximate) Telemetry Heart Rate 84 Telemetry SPO2 95 EKG WI Interval 0.14 EKG QRS Interval 0.09 Telemetry Strip Reading SR with PVCs Lab Results Lab Results: Lab Results: Last 24 Hours 08/29/23 05:17 WBC 16.12 H RBC 3.50 L Hgb 10.9 L Hct 32.3 L MCV 92.3 MCH 31.1 H MCHC 33.7 RDW Coeff of Hemant 12.9 Plt Count 275 Immature Gran % (Auto) 0.7 Neut % (Auto) 91.6 H Lymph % (Auto) 3.2 L [place] % (Auto) 4.4 Eos % (Auto) 0.0 Baso % (Auto) 0.1 Neut # (Auto) 14.8 H Lymph # (Auto) 0.5 L [place] # (Auto) 0.7 Eos # (Auto) 0.0 Baso # (Auto) 0.0 Immature Gran # (Auto) 0.1 Sodium 132.7 L Potassium 3.67 Chloride 102.4 Carbon Dioxide 25.1 Anion Gap 8.87 BUN 18.7 H Creatinine 0.62 Estimated GFR (MDRD) 92.00 BUN/Creatinine Ratio 30.16 Glucose 134.8 H Calcium 9.36 Total Bilirubin 0.61 AST 28.9 ALT 36.1 H Alkaline Phosphatase 84.0 Total Protein 6.20 L Albumin 3.41 L Globulin 2.79 Albumin/Globulin Ratio 1.22 Additional Comments Additional Comments: I have independently reviewed and interpreted the labs/EKGs/imaging ordered during this hospital stay. I have reviewed outside records that are available in our EMR that pertain to medical stay including imaging/notes/labs from previous visits. Active Medications Active Medications: Medications Generic Name Dose Route Start Last Admin Trade Name Freq PRN Reason Stop Dose Admin Acetaminophen 650 mg 08/24/23 15:40 Acetaminophen 325 Mg Tablet PO Q4H PRN Mild Pain Hydrocodone Bitart/Acetaminophen 1 tab 08/24/23 20:20 08/26/23 20:48 Hydrocodone Bit/Acetaminophen 7.5/325 Mg Tablet PO 1 tab QID PRN Administration MODERATE PAIN Apixaban 2.5 mg 08/26/23 21:00 08/29/23 08:24 Apixaban 5 Mg Tab PO 2.5 mg BID TATIANA Administration Aspirin 81 mg 08/29/23 07:30 08/29/23 08:25 Aspirin 81 Mg Tab.Chew PO 81 mg DAILYWM2 TATIANA Administration Bisoprolol Fumarate 10 mg 08/25/23 09:00 08/29/23 08:23 Bisoprolol Fumarate 5 Mg Tablet PO 10 mg DAILY TATIANA Administration Budesonide/Formoterol Fumarate 1 puff 08/24/23 20:20 08/27/23 20:37 Budesonide/Formoterol Fumarate 160/4.5 Mcg Inhaler IH 1 puff BID PRN Administration sob Cyclobenzaprine HCl 10 mg 08/24/23 20:20 08/28/23 20:23 Cyclobenzaprine Hcl 10 Mg Tablet PO 10 mg BID PRN Administration muscle pain Diltiazem HCl 60 mg 08/25/23 09:00 08/29/23 08:24 Diltiazem Hcl 60 Mg Tablet PO 60 mg Q12HR TATIANA Administration Docusate Sodium 100 mg 08/28/23 08:28 08/28/23 09:40 Docusate Sodium 100 Mg Capsule PO 100 mg DAILY PRN Administration Constipation Guaifenesin 600 mg 08/26/23 10:00 08/29/23 08:25 Guaifenesin 600 Mg Tablet.Er PO 600 mg Q12HR TATIANA Administration Guaifenesin/Dextromethorphan 10 ml 08/26/23 09:02 08/27/23 08:27 Guaifenesin/Dextromethorphan 200/20 Mg/10 Ml Cup PO 10 ml Q6HR PRN Administration Cough Levofloxacin/Dextrose 750 mg in 150 mls @ 100 mls/hr 08/28/23 09:00 08/29/23 08:23 Levaquin 750 Mg/150 Ml D5w IV 08/31/23 08:59 100 mls/hr DAILY TATIANA Administration Levalbuterol HCl 1.25 mg 08/25/23 12:00 08/29/23 05:23 Levalbuterol Hcl 1.25 Mg/3 Ml Vial.Neb NEB 1.25 mg RTQ6H TATIANA Administration Lorazepam 0.5 mg 08/24/23 20:20 08/28/23 20:24 Lorazepam 0.5 Mg Tablet PO 0.5 mg BEDTIME PRN Administration Insomnia Losartan Potassium 50 mg 08/24/23 21:00 08/29/23 08:24 Losartan Potassium 25 Mg Tablet PO 50 mg BID TATIANA Administration Methylprednisolone Sodium Succinate 40 mg 08/24/23 21:00 08/29/23 05:38 Methylprednisolone Sod Succ/Pf 40 Mg/Ml Vial IVP 40 mg Q8HR TATIANA Administration Ondansetron HCl 4 mg 08/24/23 15:40 Ondansetron Hcl/Pf 4 Mg/2 Ml Sdv IVP Q6H PRN Nausea / Vomiting Pantoprazole Sodium 40 mg 08/25/23 09:00 08/29/23 05:10 Pantoprazole Sodium 40 Mg Tablet.Dr PO 40 mg QDAC2 TATIANA Administration Polyethylene Glycol 17 gm 08/28/23 08:28 08/28/23 09:40 Polyethylene Glycol 17 Gm Powd.Pack PO 17 gm DAILY PRN Administration Constipation Pravastatin Sodium 40 mg 08/25/23 09:00 08/29/23 08:25 Pravastatin Sodium 40 Mg Tablet PO 40 mg DAILY TATIANA Administration Ropinirole HCl 0.5 mg 08/25/23 09:00 08/29/23 08:23 Ropinirole Hcl 0.25 Mg Tablet PO 0.5 mg DAILY TATIANA Administration Sodium Chloride 1 syr 08/24/23 14:12 08/28/23 20:31 0.9% Sodium Chloride 10 Ml Disp.Syrin IVF 1 syr PRN PRN Administration To flush IV Sodium Chloride 1 gm 08/24/23 17:00 08/29/23 08:25 Sodium Chloride 1 Gm Tablet PO 1 gm QID TATIANA Administration Sodium Chloride 1 syr 08/26/23 21:00 08/29/23 05:38 0.9% Sodium Chloride 10 Ml Disp.Syrin IVF 1 syr Q8HR TATIANA Administration Plan Plan: 1. Acute symptomatic hyponatremia - Improving. Cont salt tabs. No offending medications noted. Urine/serum osmol, urine sodium ordered. Pt appears euvolemic. Received lasix 20 in ER. 2. Acute hypoxic respiratory failure in setting of COPD exacerbation and pneumonia - Improving, continuing to require O2, cont levaquin, solumedrol, nebs, rt consult, Cont O2 to keep >92%. 3. Acute COPD exacerbation - Plan as above. Robitussin and mucinex ordered. 4. Pneumonia, addi, community acquired - Plan as above 5. Weakness - Pt/ot 6. A fib RVR - Resolved. Cont home meds. Cont eliquis 2.5 bid based on age/weight and ASA. Echo with normal EF. BNP elevated. 7. Hypertension - Cont home meds 8. Hyperlipidemia - Cont home meds 9. Restless leg syndrome - Cont home meds 10. 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 Spoke with vascular specialist Dr. Gloria Soto at [facility]. She states since patient is asymptomatic, outpatient f/u is appropriate. Educate patient on signs and symptoms to return to ER. Make sure she is on a statin and recommended adding ASA to Eliquis. Spoke with patient about it today. She is not interested at this time in pursuing a further work up. DVT: Eliquis Dispo: Plan to d/c tomorrow Of note, patient had recent PET scan showing possible area in lung and liver. Has recent hx of melanoma. Pt states she saw oncology on Tuesday of this week and she was told neither area is of concern. Review Statement Review Statement: I have personally discussed and reviewed the patient's visit/currently labs/imaging/decision making with Dr. Cruz, my supervising attending. Greater that 50 minutes spent with patient, 50% of the time spent with this patient was devoted to counseling and coordination of care.
[2023-08-29] MEDS: ATIVAN PO PRN (20:49)
[2023-08-29] MEDS: FLEXERIL PO PRN (20:53)
[2023-08-30] MEDS: XOPENEX 1.25 MG NEB SCH ×4 (04:50→23:12)
[2023-08-30] MEDS: SOLU-MEDROL 40 MG IVP SCH ×3 (04:58→20:30)
[2023-08-30] MEDS: PROTONIX PO SCH (04:59)
[2023-08-30 05:49] LABS: BASOPHILS % (AUTO) 0.1 % (0.0-3.0); HEMATOCRIT 34.3 % (37.0-47.0); HEMOGLOBIN 11.4 g/dl (12.0-16.0); IMMATURE GRANULOCYTE # (AUTO) 0.1 (0.0-1.0); IMMATURE GRANULOCYTE % (AUTO) 0.5 % (0.0-5.0); LYMPHOCYTES # (AUTO) 0.6 K/uL (0.60-3.4); LYMPHOCYTES % (AUTO) 5.2 (10.0-50.0); MEAN CORPUSCULAR HEMOGLOBIN 31.3 pg (27.0-31.0); MEAN CORPUSCULAR HGB CONC 33.2 (31.8-35.4); MEAN CORPUSCULAR VOLUME 94.2 fl (81.0-99.0); MONOCYTES # (AUTO) 0.5 K/uL (0.4-2.0); MONOCYTES % (AUTO) 3.9 (0-10); NEUTROPHILS # (AUTO) 10.9 K/ul (2.0-6.9); NEUTROPHILS % (AUTO) 90.3 % (42.2-75.2); PLATELET COUNT 284 10^3/uL (140-440); RDW COEFFICIENT OF VARIATION 12.7 % (11.6-14.8); RED BLOOD COUNT 3.64 10^6/ul (4.20-5.40); WHITE BLOOD COUNT 12.01 K/ul (4.6-10.2)
[2023-08-30 06:01] LABS: ALANINE AMINOTRANSFERASE 36.2 U/L (0-35); ALBUMIN 3.56 g/dL (3.5-5.0); ALKALINE PHOSPHATASE 82.8 U/L (53-141); ASPARTATE AMINO TRANSFERASE 28.4 U/L (14-36); BILIRUBIN,TOTAL 0.78 mg/dL (0.2-1.3); BLOOD UREA NITROGEN 21.5 mg/dL (7-17); CALCIUM 9.23 mg/dL (8.4-10.2); CARBON DIOXIDE 25.1 mmol/L (22-30.0); CHLORIDE 98.7 mmol/L (98-107); CREATININE 0.69 mg/dL (0.60-1.30); GLUCOSE 133.3 mg/dL (74-106); POTASSIUM 3.2 mmol/L (3.5-5.1); SODIUM 133.4 mmol/L (134.5-145); TOTAL PROTEIN 6.41 g/dL (6.3-8.2)
[2023-08-30] MEDS ORDERED: K-DUR PO ONE (08:13)
[2023-08-30] MEDS: MUCINEX PO SCH ×2 (09:37→20:25)
[2023-08-30] MEDS: ASPIRIN CHEWABLE PO SCH (09:37)
[2023-08-30] MEDS: ZEBETA PO SCH (09:37)
[2023-08-30] MEDS: PRAVACHOL PO SCH (09:38)
[2023-08-30] MEDS: CARDIZEM PO SCH ×2 (09:38→20:24)
[2023-08-30] MEDS: REQUIP PO SCH (09:38)
[2023-08-30] MEDS: COZAAR PO SCH ×2 (09:38→20:25)
[2023-08-30] MEDS: LEVAQUIN 750 MG/150 ML D5W 750 MG/150 ML BAG IV SCH (09:39)
[2023-08-30] MEDS: ELIQUIS PO SCH ×2 (09:39→20:25)
[2023-08-30] MEDS: SODIUM CHLORIDE PO SCH ×4 (09:39→20:25)
[2023-08-30] MEDS: NORCO 7.5-325 PO PRN (18:28)
--- NOTE | 2023-08-30 20:18 | PCM.PROG ---
Date/Time Seen Date Seen by Provider: 08/30/23 Time Seen by Provider: 08:45 Provider Provider: [facility], [facility] Chief Complaint Chief Complaint: CHF; URI; HYPONATREMIA; HYPOXIA Subjective Subjective: No events overnight. Continuing to require oxygen. Feeling better to Objective Appearance: Positive No Apparent Distress, Alert and Oriented x3, Ill-Appearing and Thin Chest/Lungs: Positive Symmetrical With Equal Breath Sounds, Clear to Auscultat ion Bilaterally and Good Air Movement all 4 Lung Gutierrez Heart: Positive RRR and Pulses Normal GI/: Positive Soft, Nontender, Bowel Sounds Normal and No Distention Neurological: Positive Sensation Intact, Motor intact, Reflexes Intact, Alert and Oriented Vital Signs Vital Signs: Vital Signs: Last 24 Hours 08/29/23 21:00 08/30/23 01:00 08/30/23 02:00 Temperature 97.3 F L Temperature Source Temporal Artery Scan Pulse Rate 97 85 Pulse Rate [Apical] Respiratory Rate 22 H 18 Blood Pressure 147/95 H Blood Pressure Mean 112 Blood Pressure Location Left Arm Blood Pressure Position Supine O2 Sat by Pulse Oximetry 95 92 L Oxygen Delivery Method Nasal Cannula Nasal Cannula Oxygen Flow Rate 2 2 Fraction of Inspired Oxygen (FIO2) Telemetry Type Remote Telemetry Telemetry Monitoring Continues Telemetry Heart Rate 85 Telemetry SPO2 92 L EKG [place] Interval 0.15 EKG QRS Interval 0.09 Telemetry Strip Reading SR 08/30/23 04:51 08/30/23 04:57 08/30/23 07:00 Temperature 98.5 F Temperature Source Temporal Artery Scan Pulse Rate 92 Pulse Rate [Apical] Respiratory Rate 22 H Blood Pressure 161/78 H Blood Pressure Mean 105 Blood Pressure Location Right Arm Blood Pressure Position Supine O2 Sat by Pulse Oximetry 94 L 98 Oxygen Delivery Method Nasal Cannula Nasal Cannula Oxygen Flow Rate 2 Fraction of Inspired Oxygen (FIO2) 2 Telemetry Type Remote Telemetry Telemetry Monitoring Continues Telemetry Heart Rate 94 Telemetry SPO2 93 EKG OK Interval 93 H EKG QRS Interval 0.06 Telemetry Strip Reading NSR W/ PAC 08/30/23 08:00 08/30/23 09:57 08/30/23 10:00 Temperature 97.1 F L Temperature Source Temporal Artery Scan Pulse Rate 117 H Pulse Rate [Apical] 90 Respiratory Rate 18 24 H Blood Pressure 150/94 H Blood Pressure Mean 112 Blood Pressure Location Right Arm Blood Pressure Position O2 Sat by Pulse Oximetry 97 94 L Oxygen Delivery Method Room Air Nasal Cannula Room Air Oxygen Flow Rate 2 Fraction of Inspired Oxygen (FIO2) Telemetry Type Telemetry Monitoring Telemetry Heart Rate Telemetry SPO2 EKG OK Interval EKG QRS Interval Telemetry Strip Reading 08/30/23 10:00 08/30/23 13:00 08/30/23 14:00 Temperature 98.0 F Temperature Source Temporal Artery Scan Pulse Rate 88 Pulse Rate [Apical] Respiratory Rate 20 Blood Pressure 124/83 Blood Pressure Mean 96 Blood Pressure Location Right Arm Blood Pressure Position O2 Sat by Pulse Oximetry 96 96 Oxygen Delivery Method Room Air Nasal Cannula Oxygen Flow Rate 2 Fraction of Inspired Oxygen (FIO2) Telemetry Type Remote Telemetry Telemetry Monitoring Continues Telemetry Heart Rate 97 Telemetry SPO2 95 EKG OK Interval 0.18 EKG QRS Interval 0.08 Telemetry Strip Reading SR 08/30/23 14:00 08/30/23 19:58 Temperature Temperature Source Pulse Rate Pulse Rate [Apical] Respiratory Rate Blood Pressure Blood Pressure Mean Blood Pressure Location Blood Pressure Position O2 Sat by Pulse Oximetry 96 94 L Oxygen Delivery Method Nasal Cannula Nasal Cannula Oxygen Flow Rate 2 2 Fraction of Inspired Oxygen (FIO2) Telemetry Type Telemetry Monitoring Telemetry Heart Rate Telemetry SPO2 EKG OK Interval EKG QRS Interval Telemetry Strip Reading Lab Results Lab Results: Lab Results: Last 24 Hours 08/30/23 05:40 WBC 12.01 H RBC 3.64 L Hgb 11.4 L Hct 34.3 L MCV 94.2 MCH 31.3 H MCHC 33.2 RDW Coeff of Hemant 12.7 Plt Count 284 Immature Gran % (Auto) 0.5 Neut % (Auto) 90.3 H Lymph % (Auto) 5.2 L [place] % (Auto) 3.9 Eos % (Auto) 0.0 Baso % (Auto) 0.1 Neut # (Auto) 10.9 H Lymph # (Auto) 0.6 [place] # (Auto) 0.5 Eos # (Auto) 0.0 Baso # (Auto) 0.0 Immature Gran # (Auto) 0.1 Sodium 133.4 L Potassium 3.20 L Chloride 98.7 Carbon Dioxide 25.1 Anion Gap 12.80 BUN 21.5 H Creatinine 0.69 Estimated GFR (MDRD) 81.00 BUN/Creatinine Ratio 31.15 Glucose 133.3 H Calcium 9.23 Total Bilirubin 0.78 AST 28.4 ALT 36.2 H Alkaline Phosphatase 82.8 Total Protein 6.41 Albumin 3.56 Globulin 2.85 Albumin/Globulin Ratio 1.24 Additional Comments Additional Comments: I have independently reviewed and interpreted the labs/EKGs/imaging ordered during this hospital stay. I have reviewed outside records that are available in our EMR that pertain to medical stay including imaging/notes/labs from previous visits. Active Medications Active Medications: Medications Generic Name Dose Route Start Last Admin Trade Name Freq PRN Reason Stop Dose Admin Acetaminophen 650 mg 08/24/23 15:40 Acetaminophen 325 Mg Tablet PO Q4H PRN Mild Pain Hydrocodone Bitart/Acetaminophen 1 tab 08/24/23 20:20 08/30/23 18:28 Hydrocodone Bit/Acetaminophen 7.5/325 Mg Tablet PO 1 tab QID PRN Administration MODERATE PAIN Apixaban 2.5 mg 08/26/23 21:00 08/30/23 09:39 Apixaban 5 Mg Tab PO 2.5 mg BID TATIANA Administration Aspirin 81 mg 08/29/23 07:30 08/30/23 09:37 Aspirin 81 Mg Tab.Chew PO 81 mg DAILYWM2 TATIANA Administration Bisoprolol Fumarate 10 mg 08/25/23 09:00 08/30/23 09:37 Bisoprolol Fumarate 5 Mg Tablet PO 10 mg DAILY TATIANA Administration Budesonide/Formoterol Fumarate 1 puff 08/24/23 20:20 08/27/23 20:37 Budesonide/Formoterol Fumarate 160/4.5 Mcg Inhaler IH 1 puff BID PRN Administration sob Cyclobenzaprine HCl 10 mg 08/24/23 20:20 08/29/23 20:53 Cyclobenzaprine Hcl 10 Mg Tablet PO 10 mg BID PRN Administration muscle pain Diltiazem HCl 60 mg 08/25/23 09:00 08/30/23 09:38 Diltiazem Hcl 60 Mg Tablet PO 60 mg Q12HR TATIANA Administration Docusate Sodium 100 mg 08/28/23 08:28 08/28/23 09:40 Docusate Sodium 100 Mg Capsule PO 100 mg DAILY PRN Administration Constipation Guaifenesin 600 mg 08/26/23 10:00 08/30/23 09:37 Guaifenesin 600 Mg Tablet.Er PO 600 mg Q12HR TATIANA Administration Guaifenesin/Dextromethorphan 10 ml 08/26/23 09:02 08/27/23 08:27 Guaifenesin/Dextromethorphan 200/20 Mg/10 Ml Cup PO 10 ml Q6HR PRN Administration Cough Levofloxacin/Dextrose 750 mg in 150 mls @ 100 mls/hr 08/28/23 09:00 08/30/23 09:39 Levaquin 750 Mg/150 Ml D5w IV 08/31/23 08:59 100 mls/hr DAILY TATIANA Administration Levalbuterol HCl 1.25 mg 08/25/23 12:00 08/30/23 17:43 Levalbuterol Hcl 1.25 Mg/3 Ml Vial.Neb NEB 1.25 mg RTQ6H TATIANA Administration Lorazepam 0.5 mg 08/24/23 20:20 08/29/23 20:49 Lorazepam 0.5 Mg Tablet PO 0.5 mg BEDTIME PRN Administration Insomnia Losartan Potassium 50 mg 08/24/23 21:00 08/30/23 09:38 Losartan Potassium 25 Mg Tablet PO 50 mg BID TATIANA Administration Methylprednisolone Sodium Succinate 40 mg 08/24/23 21:00 08/30/23 13:36 Methylprednisolone Sod Succ/Pf 40 Mg/Ml Vial IVP 40 mg Q8HR TATIANA Administration Ondansetron HCl 4 mg 08/24/23 15:40 Ondansetron Hcl/Pf 4 Mg/2 Ml Sdv IVP Q6H PRN Nausea / Vomiting Pantoprazole Sodium 40 mg 08/25/23 09:00 08/30/23 04:59 Pantoprazole Sodium 40 Mg Tablet.Dr PO 40 mg QDAC2 TATIANA Administration Polyethylene Glycol 17 gm 08/28/23 08:28 08/28/23 09:40 Polyethylene Glycol 17 Gm Powd.Pack PO 17 gm DAILY PRN Administration Constipation Pravastatin Sodium 40 mg 08/25/23 09:00 08/30/23 09:38 Pravastatin Sodium 40 Mg Tablet PO 40 mg DAILY TATIANA Administration Ropinirole HCl 0.5 mg 08/25/23 09:00 08/30/23 09:38 Ropinirole Hcl 0.25 Mg Tablet PO 0.5 mg DAILY TATIANA Administration Sodium Chloride 1 syr 08/24/23 14:12 08/28/23 20:31 0.9% Sodium Chloride 10 Ml Disp.Syrin IVF 1 syr PRN PRN Administration To flush IV Sodium Chloride 1 gm 11/29/23 17:00 08/30/23 17:51 Sodium Chloride 1 Gm Tablet PO 1 gm QID TATIANA Administration Sodium Chloride 1 syr 08/26/23 21:00 08/30/23 13:36 0.9% Sodium Chloride 10 Ml Disp.Syrin IVF 1 syr Q8HR TATIANA Administration Plan Plan: 1. Acute symptomatic hyponatremia - Improving. Cont salt tabs. No offending medications noted. Urine/serum osmol, urine sodium ordered. Pt appears euvolemic. Received lasix 20 in ER. 2. Acute hypoxic respiratory failure in setting of COPD exacerbation and pneumonia - Improving, continuing to require O2, cont levaquin, solumedrol, nebs, rt consult, Cont O2 to keep >92%. 3 step completed and qualifies for home oxygen 3. Acute COPD exacerbation - Plan as above. Robitussin and mucinex ordered. 4. Pneumonia, addi, community acquired - Plan as above 5. Weakness - Pt/ot 6. A fib RVR - Resolved. Cont home meds. Cont eliquis 2.5 bid based on age/weight and ASA. Echo with normal EF. BNP elevated. 7. Hypertension - Cont home meds 8. Hyperlipidemia - Cont home meds 9. Restless leg syndrome - Cont home meds 10. 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 Spoke with vascular specialist Dr. Gloria Soto at [facility]. She states since patient is asymptomatic, outpatient f/u is appropriate. Educate patient on signs and symptoms to return to ER. Make sure she is on a statin and recommended adding ASA to Eliquis. Spoke with patient about it today. She is not interested at this time in pursuing a further work up. DVT: Eliquis Dispo: Discussed extensively with patient and daughter conceerns of patient going home in current state of weakness. Patient does not wish to stay in the hospital any longer for swingbed. Does not want home health. Would benefit from use of a walker and shower chair due to work of breathing and weakness. Daughter unable to pick patient up to date due to court date that has been scheduled months in advance and is out of town. Will arrive around 1 pm tomorrow to pick patient upfor discharge. Of note, patient had recent PET scan showing possible area in lung and liver. Has recent hx of melanoma. Pt states she saw oncology on Tuesday of this week and she was told neither area is of concern. Review Statement Review Statement: I have personally discussed and reviewed the patient's visit/currently labs/imaging/decision making with Dr. Cruz, my supervising attending. Greater that 50 minutes spent with patient, 50% of the time spent with this patient was devoted to counseling and coordination of care.
[2023-08-30] MEDS: ATIVAN PO PRN (20:24)
[2023-08-30] MEDS: FLEXERIL PO PRN (20:24)
[2023-08-31] MEDS: SOLU-MEDROL 40 MG IVP SCH (04:34)
[2023-08-31] MEDS: XOPENEX 1.25 MG NEB SCH ×2 (04:57→10:50)
[2023-08-31] MEDS: PROTONIX PO SCH (05:07)
[2023-08-31 05:11] VITALS: BP 137/87; PULSE 88; RESP 20; TEMP 97.6
[2023-08-31 05:43] LABS: BASOPHILS % (AUTO) 0.1 % (0.0-3.0); HEMATOCRIT 34.9 % (37.0-47.0); HEMOGLOBIN 11.7 g/dl (12.0-16.0); IMMATURE GRANULOCYTE # (AUTO) 0.1 (0.0-1.0); IMMATURE GRANULOCYTE % (AUTO) 0.8 % (0.0-5.0); LYMPHOCYTES # (AUTO) 0.5 K/uL (0.60-3.4); LYMPHOCYTES % (AUTO) 4.4 (10.0-50.0); MEAN CORPUSCULAR HEMOGLOBIN 31.3 pg (27.0-31.0); MEAN CORPUSCULAR HGB CONC 33.5 (31.8-35.4); MEAN CORPUSCULAR VOLUME 93.3 fl (81.0-99.0); MONOCYTES # (AUTO) 0.3 K/uL (0.4-2.0); MONOCYTES % (AUTO) 2.9 (0-10); NEUTROPHILS % (AUTO) 91.8 % (42.2-75.2); PLATELET COUNT 301 10^3/uL (140-440); RDW COEFFICIENT OF VARIATION 12.7 % (11.6-14.8); RED BLOOD COUNT 3.74 10^6/ul (4.20-5.40); WHITE BLOOD COUNT 10.86 K/ul (4.6-10.2)
[2023-08-31 06:04] LABS: ALANINE AMINOTRANSFERASE 35.2 U/L (0-35); ALBUMIN 3.49 g/dL (3.5-5.0); ASPARTATE AMINO TRANSFERASE 24.5 U/L (14-36); BILIRUBIN,TOTAL 0.69 mg/dL (0.2-1.3); BLOOD UREA NITROGEN 23.2 mg/dL (7-17); CALCIUM 9.06 mg/dL (8.4-10.2); CARBON DIOXIDE 29.7 mmol/L (22-30.0); CHLORIDE 99.1 mmol/L (98-107); CREATININE 0.75 mg/dL (0.60-1.30); GLUCOSE 155.5 mg/dL (74-106); POTASSIUM 3.9 mmol/L (3.5-5.1); SODIUM 131.9 mmol/L (134.5-145); TOTAL PROTEIN 6.12 g/dL (6.3-8.2)
[2023-08-31] MEDS: ZEBETA PO SCH (08:49)
[2023-08-31] MEDS: MUCINEX PO SCH (08:49)
[2023-08-31] MEDS: PRAVACHOL PO SCH (08:50)
[2023-08-31] MEDS: COZAAR PO SCH (08:50)
[2023-08-31] MEDS: ASPIRIN CHEWABLE PO SCH (08:50)
[2023-08-31] MEDS: CARDIZEM PO SCH (08:50)
[2023-08-31] MEDS: ELIQUIS PO SCH (08:50)
[2023-08-31] MEDS: SODIUM CHLORIDE PO SCH (08:50)
[2023-08-31] MEDS: REQUIP PO SCH (08:50)
[2023-08-31] MEDS: NORCO 7.5-325 PO PRN (11:15)
--- NOTE | 2023-08-31 11:35 | DCSUM ---
Admission Date Admission Date: 08/24/23 Discharge Date Discharge Date: 08/31/23 Admission Diagnosis Admission Diagnosis: 1. Acute symptomatic hyponatremia 2. Acute COPD exacerbation 3. Weakness 4. A fib, paroxysmal 5. Hypertension 6. Hyperlipidemia 7. Restless leg syndrome Discharge Diagnosis Discharge Diagnosis: 1. Acute symptomatic hyponatremia - Improving, stable 2. Acute hypoxic respiratory failure in setting of COPD exacerbation and pneumonia - Improving, stable 3. Acute COPD exacerbation - Improving 4. Pneumonia, addi, community acquired - Improving 5. Weakness - Improving, d/c with home health 6. A fib RVR - Resolved 7. Hypertension - Chronic, stable 8. Hyperlipidemia - Chronic, stable 9. Restless leg syndrome - Chronic, stable 10. 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 Patient states she's been treated outpatient with URI symptoms. She completed a course of z swetha and 5 days of steroids. She was then given cefdinir and another round of steroids. Did not take the cefdinir due to an allergy. She has continued to feel worse. She has wheezing, has been having to sleep in a recliner instead of a bed. Today she felt weaker than normal which concerned her. She denies unilateral weakness. No recent fever. In ER she was found to have Na 125, bnp 1900, elevated wbc count, procal normal. CXR shows COPD and evidence of bronchitis. She was given lasix 20 and duoneb in the ER. Patient denies history of CHF. Does not take diuretics. Hospital Course Subjective: During course of stay, patient has been treated for bilateral community acquired pneumonia and COPD exacerbation. She has required oxygen at least 2L during stay and specifically at night. Failed 3 step O2 and qualified for home oxygen. Initially she was treated with doxycycline but no improvement was seen. she was transitioned to levaquin on 08/28 and condition began to improve. She also has receiving steroids, mucinex, robitussin, and nebulizer treatments. Has paroxysmal Afib. Home meds continued. Echo was completed and normal EF was found. 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 Spoke with vascular specialist Dr. Gloria Soto at [facility]. She states since patient is asymptomatic, outpatient f/u is appropriate. Patient was educated on signs and symptoms to return to ER. Recommended statin and adding ASA to Eliquis. Patient is not interested at this time in pursuing a further work up. Also, patient was treated for hyponatremia during stay with salt tabs QID. Remained stable in 130s. Discussed to add extra salt to food and follow-up with PCP to monitor. All other home medications continued and no changes were made. Appearance: Pleasant, No Apparent Distress and Alert HEENT: MMM and Supple CVS: No Murmur Abdomen: Soft and Non-Tender Respiratory: No Dyspnea Extremities: No Edema Vital Signs: Most Recent Vital Signs Temperature 97.6 F 08/31/23 05:09 Temperature Source Temporal Artery Scan 08/31/23 05:09 Temperature Source Infrared 08/24/23 14:13 Pulse Rate 88 08/31/23 05:09 Respiratory Rate 20 08/31/23 05:09 Blood Pressure 137/87 08/31/23 05:09 Blood Pressure Mean 103 08/31/23 05:09 Blood Pressure Right Arm 157/63 08/24/23 15:56 Blood Pressure Location Right Arm 08/31/23 05:09 Blood Pressure Position Supine 08/31/23 05:09 O2 Sat by Pulse Oximetry 98 08/31/23 10:00 Oxygen Delivery Method Nasal Cannula 08/31/23 10:00 Oxygen Flow Rate 2 08/31/23 10:00 Fraction of Inspired Oxygen (FIO2) 2 08/30/23 04:57 Height 5 ft 2 in 08/24/23 15:56 Weight 107 lb 08/24/23 15:56 Telemetry Type Remote Telemetry 08/31/23 07:00 Telemetry Monitoring Continues 08/31/23 07:00 Irregular Telemetry Rate (Approximate) 90-100 BPM 08/28/23 13:00 Telemetry Heart Rate 87 08/31/23 07:00 Telemetry SPO2 98 08/31/23 07:00 EKG WV Interval 0.14 08/31/23 07:00 EKG QRS Interval 0.06 08/31/23 07:00 Telemetry Strip Reading NSR with PVC's 08/31/23 07:00 Lab Results Last 24 Hours: 08/31/23 05:09 WBC 10.86 H RBC 3.74 L Hgb 11.7 L Hct 34.9 L MCV 93.3 MCH 31.3 H MCHC 33.5 RDW Coeff of Hemant 12.7 Plt Count 301 Immature Gran % (Auto) 0.8 Neut % (Auto) 91.8 H Lymph % (Auto) 4.4 L Ward % (Auto) 2.9 Eos % (Auto) 0.0 Baso % (Auto) 0.1 Neut # (Auto) 10.0 H Lymph # (Auto) 0.5 L Ward # (Auto) 0.3 L Eos # (Auto) 0.0 Baso # (Auto) 0.0 Immature Gran # (Auto) 0.1 Sodium 131.9 L Potassium 3.90 Chloride 99.1 Carbon Dioxide 29.7 Anion Gap 7.00 BUN 23.2 H Creatinine 0.75 Estimated GFR (MDRD) 74.00 BUN/Creatinine Ratio 30.93 Glucose 155.5 H Calcium 9.06 Total Bilirubin 0.69 AST 24.5 ALT 35.2 H Alkaline Phosphatase 73.0 Total Protein 6.12 L Albumin 3.49 L Globulin 2.63 Albumin/Globulin Ratio 1.32 Discharge Instructions Discharge Planning: Discharge Planning > 40 minutes If patient is discharged with left ventricular systolic dysfunction: NA Discharged with a beta carol? [] If no, why not? [] Discharged with an allison/arb? [] If no, why not? [] DX: HYPONATREMIA, CAP, COPD Regular diet Activity as tolerated Home Health PT/OT Follow-up with PCP next week New Medications: Eliquis 2.5 mg twice a day Levaquin 750 mg daily x 6 days Sodium Chloride 1000 mg take 4 times a day with meals for low sodium Xopenex (Nebulizer treatment) every 6 hours Dextromethorphan-Guaifenesin 10mL as needed every 6 hours for cough YOU HAVE BEEN ESTABLISHED WITH [facility]. THEY WILL BE DELIVERING OXYGEN TANK TO YOUR HOUSE. SHOULD YOU NEED TO CONTACT THEM THEIR NUMBER IS [phone]. Discharge Medications: Medications at Discharge (Home Meds & RX) budesonide-formoterol HFA 160 mcg-4.5 mcg/actuation aerosol inhaler (Symbicort) 1 puff inhalation BID PRN difficulty breathing 03/31/15 aspirin 81 mg chewable tablet 81 mg PO QDAY 11/18/22 mupirocin 2 % topical ointment See Rx Instructions .Route .COMPLEX #22 ea 03/28/23 losartan 50 mg tablet (Cozaar) 50 mg PO BID #180 tabs 05/24/23 lorazepam 0.5 mg tablet (Ativan) 0.5 mg PO BEDTIME PRN Sleep #30 tabs 07/11/23 hydrocodone 7.5 mg-acetaminophen 325 mg tablet 1 tab PO QID PRN pain #120 tabs 07/12/23 bisoprolol fumarate 10 mg tablet 10 mg PO QDAY 08/24/23 cyclobenzaprine 10 mg tablet 10 mg PO BID PRN muscle spasm 08/24/23 diltiazem HCl 60 mg tablet 60 mg PO .Q12 08/24/23 esomeprazole magnesium 40 mg capsule,delayed release 40 mg PO QDAY 08/24/23 pravastatin 40 mg tablet 40 mg PO QDAY 08/24/23 ropinirole 0.5 mg tablet 0.5 mg PO QDAY 08/24/23 C.NEBULIZER (NEBULIZER) #1 ea 08/31/23 apixaban 5 mg tablet (Eliquis) 2.5 mg (1/2 x 5 mg) PO BID #60 tabs 08/31/23 dextromethorphan-guaifenesin 10 mg-100 mg/5 mL oral syrup 10 ml PO Q6HR PRN cough #100 mL 08/31/23 levalbuterol HCl 1.25 mg/3 mL solution for nebulization 1.25 mg (3 mL) NEB RTQ6H #60 mL 08/31/23 levofloxacin 750 mg tablet 750 mg PO DAILY #6 tabs 08/31/23 sodium chloride 1,000 mg soluble tablet 1,000 mg PO QID #120 tabs 08/31/23 Discharge Plan Discharge Discharge Orders: Discharge Patient (ONCE); Ordered 08/31/23 Ordered By: TATIANNA WILLIAMSON Activity Restrictions/Additional Instructions: Regular diet Activity as tolerated Home Health PT/OT Follow-up with PCP next week New Medications: Eliquis 2.5 mg twice a day Levaquin 750 mg daily x 6 days Sodium Chloride 1000 mg take 4 times a day with meals for low sodium Xopenex (Nebulizer treatment) every 6 hours Dextromethorphan-Guaifenesin 10mL as needed every 6 hours for cough YOU HAVE BEEN ESTABLISHED WITH [facility]. THEY WILL BE DELIVERING OXYGEN TANK TO YOUR HOUSE. SHOULD YOU NEED TO CONTACT THEM THEIR NUMBER IS [phone]. Instructions: Community Acquired Pneumonia (GEN), COPD (Chronic Obstructive Pulmonary Disease) (GEN) Patient Disposition: HOME WITH FAMILY CARE Prescriptions: New dextromethorphan-guaifenesin 10-100 mg/5 mL Syrup 10 ml PO Q6HR PRN (Reason: cough) Qty: 100 0RF levalbuterol HCl 1.25 mg/3 mL Solution For Nebulization 1.25 mg NEB RTQ6H Qty: 60 0RF sodium chloride 1,000 mg Tablet,Soluble 1,000 mg PO QID Qty: 120 0RF Eliquis 5 mg Tablet 2.5 mg PO BID Qty: 60 0RF levofloxacin 750 mg tablet 750 mg PO DAILY Qty: 6 0RF (DME) NEBULIZER Misc See Rx Instructions .ROUTE Qty: 1 0RF Rx Instructions: As directed Continued mupirocin 2 % ointment See Rx Instructions .ROUTE .COMPLEX Qty: 22 2RF Dose Instruction: APPLY TO AFFECTED AREA TOPICALLY THREE TIMES DAILY GENERIC FOR BACTROBAN Rx Instructions: APPLY TO AFFECTED AREA TOPICALLY THREE TIMES DAILY GENERIC FOR BACTROBAN lorazepam [Ativan] 0.5 mg tablet 0.5 mg PO BEDTIME PRN (Reason: Sleep) Qty: 30 0RF hydrocodone-acetaminophen 7.5-325 mg tablet 1 tab PO QID PRN (Reason: pain) Qty: 120 0RF budesonide-formoterol [Symbicort] 1 PUFF HFA aerosol inhaler 1 puff inhalation BID PRN (Reason: difficulty breathing) losartan [Cozaar] 50 mg tablet 50 mg PO BID Qty: 180 1RF aspirin 81 mg tablet,chewable 81 mg PO QDAY ropinirole 0.5 mg tablet 0.5 mg PO QDAY Rx Instructions: Take 1 tablet at bedtime for 7 days If NO improvement can take 2 tabs cyclobenzaprine 10 mg tablet 10 mg PO BID PRN (Reason: muscle spasm) Rx Instructions: Take 1 tablet twice a day as needed for pain diltiazem HCl 60 mg tablet 60 mg PO .Q12 Rx Instructions: Take 1 Tablet Every 12 Hour esomeprazole magnesium 40 mg capsule,delayed release(DR/EC) 40 mg PO QDAY bisoprolol fumarate 10 mg tablet 10 mg PO QDAY pravastatin 40 mg tablet 40 mg PO QDAY Did you review [place] [employer] for ALL controlled substances?: No Discussed opioids are addictive and Narcan is available by prescription or from pharmacy.: No Condition: Fair Referrals: NAPOLEON COLE MD [Primary Care Provider] - 09/05/23 3:00 pm ()
== END 2023-08-31 14:10 | disposition home or self-care (01) | DRG 640 ==
LOC: ED 14:09 → MEDSURG B 15:36
PROVIDERS: ADMIT Hospitalist; ATTEND Nurse Practitioner Family
DX: E78.5 Hyperlipidemia, unspecified; E87.1 Hypo-osmolality and hyponatremia; I48.91 Unspecified atrial fibrillation; I45.10 Unspecified right bundle-branch block; J18.9 Pneumonia, unspecified organism; I50.33 Acute on chronic diastolic (congestive) heart failure; J44.1 Chronic obstructive pulmonary disease with (acute) exacerbation; K55.1 Chronic vascular disorders of intestine; G25.81 Restless legs syndrome; M62.81 Muscle weakness (generalized); Z20.822 Contact with and (suspected) exposure to COVID-19; I10 Essential (primary) hypertension